=== PATIENT | male | born 1995 | race Caucasian/White ===

== ENCOUNTER 2022-09-20 18:43 | Inpatient (IN) ==
--- NOTE | 2022-09-20 19:00 | Emergency Department Note ---
Impression & Plan Alcohol intoxication, Depression with suicidal ideation ED Provider Note NAME: BARBARA VANG AGE: 27 SEX: M : 1995 ARRIVES VIA: [employer] INFORMANT: Patient, the police ED PROVIDER(S): Aleks Gay DO CHIEF COMPLAINT: Mental health evaluation HPI: The patient is a 27-year-old male who presented to the emergency department with police for mental health evaluation. The patient presented with police and there is a 302 petition. The patient's called the police because she was concerned for his safety. Apparently the patient has been having suicidal ideation with thoughts of taking pills and overdosing. He also states that he was going to "drink myself to ". The patient has been seen in our facility for similar complaints. He had no reported vomiting or GI bleeding. The patient came with the police without being belligerent or combative. ROS: See above HPI for pertinent positives & negatives. A total of 10 systems reviewed and were otherwise negative. PAST MEDICAL HISTORY: See Below PAST SURGICAL HISTORY: See Below FAMILY HISTORY: See Below SOCIAL HISTORY: See Below HOME MEDICATIONS: See Below ALLERGIES: See Below VITALS: See Below PHYSICAL EXAMINATION: GENERAL: The patient is awake and answering questions appropriately. He appears somewhat disheveled. EYES: The conjunctivae are clear. The pupils are round and reactive. EARS, NOSE, MOUTH AND THROAT: The nose is without any evidence of any deformity. NECK: The neck is nontender and supple. RESPIRATORY: Normal respiratory effort is noted there is no evidence of wheezing rhonchi or rales CARDIOVASCULAR: Regular rate and rhythm noted there no murmurs rubs or gallops normal S1 normal S2. GASTROINTESTINAL: The abdomen is soft. Abdomen is nontender. MUSCULOSKELETAL/EXTREMITIES: There is no evidence of gross deformity full range of motion is noted in the hips and shoulders. SKIN: There is no obvious evidence of any rash. There are no petechiae, pallor or cyanosis noted. NEUROLOGIC: Patient is awake and oriented x3 strength is symmetric patellar reflexes are 2+ bilaterally PSYCH: The patient makes poor eye contact for the majority of the evaluation. The patient is still admitting to suicidal ideation with thoughts of taking pills. MEDICAL DECISION MAKING: The patient is a 27-year-old male who presented to the emergency department with police for mental health evaluation. The patient presented as a 302 evaluation. The patient did admit to suicidal ideation but he was very vague about a plan. The patient was unable to be medically cleared as he had a very high alcohol level and has a history of withdrawal seizures in the past. I discussed the patient's condition with the on-call [facility] hospitalist. They have agreed to evaluate the patient in the emergency department for further management and disposition. Triage Nursing notes reviewed. Prior medical records reviewed Vital Signs: reviewed and remarkable for tachycardia and hypertension. Differential diagnosis: Mood disorder, infection, hypoglycemia, electrolyte abnormalities, cardiac sour tracey, intracerebral event, toxicologic, trauma, neurologic, as well as other pathologies. ER treatment provided: See below Diagnostics interpreted by me: ECG: none Laboratory studies: As stated above and show below. Imaging studies: See below. Consultation(s): I discussed this case with Dr. Mullins who is on-call for the [facility]ist group. Past Med/Surg History Medical History Alcohol dependence Alcohol intoxication Pneumonia Transaminitis Surgical History No pertinent past surgical history Family History Denies family history of Deep vein thrombosis Pulmonary embolism Social History Smoking Status: Current every day smoker Tobacco Type: E-cigarettes / Vaping Preferred Language: Urdu Feels Safe at Home: Yes Allergies Allergies Allergy/AdvReac Type Severity Reaction Status Date / Time cephalexin Allergy Severe Hives Verified 08/29/22 07:31 sulfamethoxazole Allergy Severe Hives Verified 08/29/22 07:31 [From Bactrim] trimethoprim [From Bactrim] Allergy Severe Hives Verified 08/29/22 07:31 Home Meds Home Medications Medication Instructions Recorded Confirmed No Known Home Medications 05/17/22 05/17/22 buspirone 10 mg PO 08/29/22 Results & Data (ED) Vital Signs Vital Signs - 24 hr 09/20/22 18:54 Temperature 36.9 C Temperature Source Oral Pulse Rate 113 H Respiratory Rate 18 Blood Pressure 163/111 H Blood Pressure Mean 128 Pulse Oximetry 99 Oxygen Delivery Method Room Air Sepsis Recent Fever Within 48 Hours No Sepsis New/Unexplained Change in Mental Status N/A Sepsis Action Taken by Nursing No Action Required Home Medications Current Medication List: was personally reviewed by me Laboratory Data Attestation: I reviewed the patient's lab results. 09/20/22 18:55 09/20/22 18:55 Lab Results 09/20/22 09/20/22 09/20/22 Range/Units 18:45 18:55 18:55 WBC 3.63 L (4.8-10.8) K/ul RBC 5.13 (4.70-6.10) M/uL Hgb 16.3 (14.0-18.0) g/dl Hct 45.9 (42.0-52.0) % MCV 89.5 (80.0-100.0) fL MCH 31.8 (25.0-34.0) pg MCHC 35.5 (32.0-36.0) g/dL RDW Std Deviation 43.5 (36.4-46.3) fL RDW Coeff of Nidia 13.2 (11.5-14.5) % Plt Count 287 (130-400) K/uL MPV 8.2 L (9.4-12.4) fL Neutrophils % (Manual) 31 % Lymphocytes % (Manual) 36 % Monocytes % (Manual) 10 % Eosinophils % (Manual) 2 % Neutrophils # (Manual) 1.13 L (1.40-6.50) K/uL Total Absolute Neuts 1.13 L (1.4-6.5) K/uL Lymphocytes # (Manual) 1.31 (1.2-3.4) K/uL Total Abs Lymphocytes 2.11 (1.2-3.4) K/uL Monocytes # (Manual) 0.36 (0.11-0.59) K/uL Eosinophils # (Manual) 0.07 (0-0.50) K/uL Large Granular Lymphs 22 % # Lrg Granular Lymphs 0.80 K/uL Sodium 141 (136-145) mmol/L Potassium 3.4 L (3.5-5.1) mmol/L Chloride 103 (98-107) mmol/L Carbon Dioxide 23 (21-32) mmol/L Anion Gap 15 H (3-11) BUN 9 (6-23) mg/dl Creatinine 0.87 (0.6-1.4) mg/dl Est Cr Clr Drug Dosing 109.1 ml/min Est GFR ( Amer) 137.1 ml/min Est GFR (Non-Af Amer) 118.3 ml/min BUN/Creatinine Ratio 10.3 (10-20) Glucose 136 H (70-99(Fasting)) mg/dl Calcium 8.9 (8.6-10.3) mg/dl Total Bilirubin 0.9 (0.2-1.0) mg/dl AST 82 H (13-39) U/L ALT 47 (7-52) U/L Alkaline Phosphatase 72 (34-104) U/L Total Protein 8.4 H (6.0-8.3) gm/dl Albumin 4.8 (3.4-5.0) gm/dl Globulin 3.6 (2.5-4.0) gm/dl Albumin/Globulin Ratio 1.3 (0.9-2) TSH (0.300-4.500) uIu/ml Salicylates (3.0-30) mg/dl Acetaminophen (10-30) ug/ml Ethyl Alcohol mg/dL (<10.0) mg/dl SARS-CoV-2, RNA, NAAT NEGATIVE (NEGATIVE) 09/20/22 09/20/22 09/20/22 Range/Units 18:55 18:55 18:55 WBC (4.8-10.8) K/ul RBC (4.70-6.10) M/uL Hgb (14.0-18.0) g/dl Hct (42.0-52.0) % MCV (80.0-100.0) fL MCH (25.0-34.0) pg MCHC (32.0-36.0) g/dL RDW Std Deviation (36.4-46.3) fL RDW Coeff of Nidia (11.5-14.5) % Plt Count (130-400) K/uL MPV (9.4-12.4) fL Neutrophils % (Manual) % Lymphocytes % (Manual) % Monocytes % (Manual) % Eosinophils % (Manual) % Neutrophils # (Manual) (1.40-6.50) K/uL Total Absolute Neuts (1.4-6.5) K/uL Lymphocytes # (Manual) (1.2-3.4) K/uL Total Abs Lymphocytes (1.2-3.4) K/uL Monocytes # (Manual) (0.11-0.59) K/uL Eosinophils # (Manual) (0-0.50) K/uL Large Granular Lymphs % # Lrg Granular Lymphs K/uL Sodium (136-145) mmol/L Potassium (3.5-5.1) mmol/L Chloride (98-107) mmol/L Carbon Dioxide (21-32) mmol/L Anion Gap (3-11) BUN (6-23) mg/dl Creatinine (0.6-1.4) mg/dl Est Cr Clr Drug Dosing ml/min Est GFR ( Amer) ml/min Est GFR (Non-Af Amer) ml/min BUN/Creatinine Ratio (10-20) Glucose (70-99(Fasting)) mg/dl Calcium (8.6-10.3) mg/dl Total Bilirubin (0.2-1.0) mg/dl AST (13-39) U/L ALT (7-52) U/L Alkaline Phosphatase (34-104) U/L Total Protein (6.0-8.3) gm/dl Albumin (3.4-5.0) gm/dl Globulin (2.5-4.0) gm/dl Albumin/Globulin Ratio (0.9-2) TSH 0.377 (0.300-4.500) uIu/ml Salicylates < 3.0 L (3.0-30) mg/dl Acetaminophen < 3 L (10-30) ug/ml Ethyl Alcohol mg/dL 522.9 H (<10.0) mg/dl SARS-CoV-2, RNA, NAAT (NEGATIVE) Discharge Plan Visit Data Chief Complaint: Mental Health Evaluation Stated Complaint: [facility] ED Provider: Aleks Gay Discharge Problem: Alcohol intoxication, Depression with suicidal ideation Patient Disposition: Being Evaluated by Hospitalist Forms Stand Alone Forms: My [facility], Suicide Prevention Resources Prescriptions Prescriptions: No Action No Known Home Medications buspirone 10 mg tablet 10 mg PO Referrals Referrals: PCP,NO [Primary Care Provider] -
[2022-09-20 19:52] LABS: Hematocrit (blood only) 45.9 % (42.0-52.0); Hemoglobin 16.3 g/dl (14.0-18.0); Mean Corpuscular Hemoglobin 31.8 pg (25.0-34.0); Mean Corpuscular Hgb Conc 35.5 g/dL (32.0-36.0); Mean Corpuscular Volume 89.5 fL (80.0-100.0); Mean Platelet Volume 8.2 fL (9.4-12.4); Platelet Count 287 K/uL (130-400); RDW Coefficient of Variation 13.2 % (11.5-14.5); RDW Standard Deviation 43.5 fL (36.4-46.3); Red Blood Count 5.13 M/uL (4.70-6.10); White Blood Count 3.63 K/ul (4.8-10.8)
[2022-09-20 19:54] LABS: Albumin Globulin Ratio 1.3 (0.9-2); Albumin Level 4.8 gm/dl (3.4-5.0); BUN Creatinine Ratio 10.3 (10-20); Bilirubin,Total 0.9 mg/dl (0.2-1.0); Calcium 8.9 mg/dl (8.6-10.3); Creatinine Clr Calc Pharmacy 109.1 ml/min; Est GFR (African American) 137.1 ml/min; Est GFR (Non-African American) 118.3 ml/min; Globulin 3.6 gm/dl (2.5-4.0); Potassium 3.4 mmol/L (3.5-5.1); Total Protein 8.4 gm/dl (6.0-8.3)
[2022-09-20 20:20] LABS: ALC (manual) 2.11 K/uL (1.2-3.4); ANC (manual) 1.13 K/uL (1.4-6.5); Eosinophils # (manual) 0.07 K/uL (0-0.50); Eosinophils % (manual) 2 %; Large Granular Lymph % (manual) 22 %; Lymphocytes # (manual) 1.31 K/uL (1.2-3.4); Lymphocytes % (manual) 36 %; Monocytes # (manual) 0.36 K/uL (0.11-0.59); Monocytes % (manual) 10 %; Neutrophils # (manual) 1.13 K/uL (1.40-6.50); Neutrophils % (manual) 31 %
[2022-09-20 20:39] LABS: Acetaminophen < 3 ug/ml (10-30); Salicylate < 3.0 mg/dl (3.0-30)
--- NOTE | 2022-09-20 22:29 | History & Physical Report ---
Date of Service September 20, 2022 Assessment & Plan (1) Suicidal ideation: Plan: Alcohol abuse Reports 1 seizure when trying to reduce his alcohol intake about a week ago, is on propranolol. Denies other antiseizure medicine Reports an interest in going to rehab. Reports that his addiction has caused him to complete suicide, see below Neutropenic, hemoglobin 16.3 Potassium 3.4, repleted BSG 136 Salicylate negative, acetaminophen negative, ethyl alcohol 5-2.9 on admission. Admit on CIWA, Librium protocol due to history of seizure Seizure precautions Thiamine, folic acid ordered. Suicidal ideation Patient endorses passive SI with potential plan in using medications or alcohol to overdose Reports that he still has thoughts of suicide, and that his addiction drives him to think of this Suicide precautions at this time Safe tray Psych liaison consulted - 302. Pt may not leave ama. Hypokalemia Repleted, trend Denies other chronic medical problems DVT prophylaxis: Low risk, ambulate Diet: Safe tray Disposition: Medical telemetry for acute withdrawal with history of seizures, and electrolyte abnormality CODE STATUS: Full code (2) Alcohol intoxication: (3) Alcohol dependence: History of Present Illness Primary Care Provider: NO PCP José Luis is a 27-year-old male with a past medical history of alcohol abuse, alcohol withdrawal seizures, and who reportedly had suicidal ideation at home with thoughts of taking pills and overdosing and drinking himself to before arriving in the ER. He is found to have an alcohol level greater than 500. He was recommended for medical admission due to history of withdrawal, history of seizures, and SI. José Luis is seen in a pod. He reports that he has had a history of a seizure when he tried to stop drinking alcohol last week, reports he is on propranolol but no other antiseizure medicine. He drinks about 1/5 of liquor per day, last drink was evening of admission he is not sure what time. He endorses passive SI, and reports that it is his addiction that makes him think about suicide and want to be . Has thought about drinking himself to or taking medications as a means, has not stockpiled or other attempts. Reports he is interested in rehab. Has never been on Librium but is okay starting this. Denies fever, chills. Feels shaky and a little sweaty. Medical History: Reviewed Medications: Reviewed Surgical History: Reviewed Family history: Reviewed Allergies: Reviewed Social History: ETOH as noted. Denies rec drug use Code Status: FUll Allergies Allergy/AdvReac Type Severity Reaction Status Date / Time cephalexin Allergy Severe Hives Verified 08/29/22 07:31 sulfamethoxazole Allergy Severe Hives Verified 08/29/22 07:31 [From Bactrim] trimethoprim [From Bactrim] Allergy Severe Hives Verified 08/29/22 07:31 Home Medications Medication Instructions Recorded Confirmed Type No Known Home Medications 05/17/22 05/17/22 History buspirone 10 mg PO 08/29/22 History Past Med/Surg History Medical History (Updated 09/20/22 @ 22:38 by Sanket Woo MD) Alcohol dependence Alcohol intoxication Pneumonia Transaminitis Surgical History No pertinent past surgical history Family History Denies family history of Deep vein thrombosis Pulmonary embolism Social History Smoking Status: Current every day smoker Tobacco Type: E-cigarettes / Vaping Preferred Language: Swedish Feels Safe at Home: Yes Review of Systems Review of Systems: All systems reviewed & are unremarkable except as noted in HPI & below Physical Exam Physical Exam: General: A&O to name, year, and place. NAD. Cooperative. HEENT: Atraumatic, normocephalic. Pulm: CTAB A&P. -wheezes, -rales, -rhonchi. Symmetrical chest rise. No increased work of breathing. No respiratory distress. Cardiac: tahcycardic, -mrg. Radial pulses intact and symmetrical. Abdominal: Nontender, nondistended, soft. BS present. Ext: warm, slightly moist. Mild resting tremor. Sensation/strength grossly intact Results & Data Results & Data Vital Signs (Past 12 Hours) Vital Signs Temp Pulse Resp BP Pulse Ox O2 Del Method 09/20/22 18:54 36.9 C 113 H 18 163/111 H 99 Room Air PG Care Time/CCT Total # of Minutes Spent Total Time Spent with Patient: Total time spent is greater than 50% in coordination of care (as documented) at patient's floor/unit and/or counseling patient: Coding Level of Care Code 92027 INT INP/OBS CARE MIN Diagnoses Suicidal ideation R45.851 Alcohol intoxication F10.929 Alcohol dependence F10.20
[2022-09-20] MEDS ORDERED: Ativan IV Alcohol Withdrawal--Active Protocol IV PRN (22:40)
[2022-09-20] MEDS ORDERED: LORazepam 2 MG/1 ML VIAL IV PRN ×3 (22:40→22:42)
[2022-09-20] MEDS ORDERED: chlordiazePOXIDE ALCOHOL WITHDRAWL 50MG PO STA (22:40)
[2022-09-20] MEDS ORDERED: CEROVITE ADV FORMULA TAB PO STA (22:52)
[2022-09-20] MEDS ORDERED: THIAMINE HCL 100 MG, FOLIC ACID 1 MG in SODIUM CHLORIDE 0.9% 1000ML 1,000 ML IV STA (22:52)
[2022-09-20] MEDS ORDERED: chlordiazePOXIDE HCl 25 MG CAP PO STA (22:53)
[2022-09-21] MEDS: LORazepam 2 MG/1 ML VIAL IV PRN ×3 (01:09→19:22)
[2022-09-21 02:43] LABS: Appearance Urine Clear (Clear); Bacteria Urine Automated Negative (Negative); Bilirubin Urine Negative (Negative); Blood Urine Negative (Negative); Cast Urine Automated 0 /lpf (0-5); Color Urine Yellow; Epithelial Cell Urine Auto 0-5 /lpf (0-5); Glucose Urine UA Negative (Negative); Ketones Urine 1+ (Negative); Leukocyte Esterase Urine Negative (Negative); Nitrite Urine Negative (Negative); Protein Urine Trace (Negative); RBC Urine Automated 0-4 /hpf (0-4); Specific Gravity Urine 1.018 (1.000-1.030); Urobilinogen Urine Negative (Negative)
[2022-09-21 03:01] LABS: Amphetamines+Metham, Urine Neg (Neg); Barbiturates, Urine Neg (Neg); Benzodiazepine, Urine Neg (Neg); Cocaine, Urine Neg (Neg); MDMA (Ecstacy), Urine Neg (Neg); Methadone, Urine Neg (Neg); Opiate, Urine Neg (Neg); Phencyclidine, Urine Neg (Neg)
[2022-09-21] MEDS: chlordiazePOXIDE HCl 25 MG CAP PO SCH ×4 (05:40→17:28)
[2022-09-21] MEDS: THIAMINE HCL 100 MG TAB PO SCH (07:58)
[2022-09-21 08:26] LABS: Basophils # (auto) 0.04 K/uL (0-0.2); Basophils % (auto) 0.9 %; Eosinophils # (auto) 0.06 K/uL (0-0.50); Eosinophils % (auto) 1.4 %; Hematocrit (blood only) 41.8 % (42.0-52.0); Hemoglobin 14.7 g/dl (14.0-18.0); Immature Granulocytes # (auto) 0.01 K/uL (0.01-0.20); Immature Granulocytes % (auto) 0.2 %; Lymphocytes # (auto) 2.03 K/uL (1.2-3.4); Lymphocytes % (auto) 47.2 %; Mean Corpuscular Hemoglobin 32.3 pg (25.0-34.0); Mean Corpuscular Hgb Conc 35.2 g/dL (32.0-36.0); Mean Corpuscular Volume 91.9 fL (80.0-100.0); Mean Platelet Volume 8.2 fL (9.4-12.4); Monocytes # (auto) 0.39 K/uL (0.11-0.59); Monocytes % (auto) 9.1 %; Neutrophils # (auto) 1.77 K/uL (1.40-6.50); Neutrophils % (auto) 41.2 %; Platelet Count 235 K/uL (130-400); RDW Coefficient of Variation 13.2 % (11.5-14.5); RDW Standard Deviation 44.8 fL (36.4-46.3); Red Blood Count 4.55 M/uL (4.70-6.10)
[2022-09-21 08:47] LABS: BUN Creatinine Ratio 9.8 (10-20); Calcium 8.7 mg/dl (8.6-10.3); Creatinine Clr Calc Pharmacy 110.6 ml/min; Est GFR (African American) 140.5 ml/min; Est GFR (Non-African American) 121.2 ml/min; Potassium 3.5 mmol/L (3.5-5.1)
[2022-09-21] MEDS: NICOTINE 21 MG/24 HR TDSY TD SCH (11:58)
[2022-09-21 13:02] LABS: Base Excess VBG 3.7 mEq/L; HCO3 VBG 29 mmol/L; Oxygen Saturation VBG 88.6 %; PCO2 VBG 43 mmHg (38-50); PO2 VBG 55 mmHg; pH VBG 7.43 (7.36-7.41)
[2022-09-21 13:27] LABS: BUN Creatinine Ratio 9.6 (10-20); Calcium 9.1 mg/dl (8.6-10.3); Creatinine Clr Calc Pharmacy 109.3 ml/min; Est GFR (African American) 139.8 ml/min; Est GFR (Non-African American) 120.6 ml/min; Potassium 3.8 mmol/L (3.5-5.1)
--- NOTE | 2022-09-21 16:29 | Psychiatric Consultation ---
Date of Consultation September 21, 2022 Impression / Recommendations Impression 27 y/o man with severe alcohol dependence and possibly PTSD (for which he certainly has a history of childhood traumatic events) who presented to the ED profoundly intoxicated and speaking of suicidal thoughts (but denied plans to the ED physician while reporting them to the hospitalist). At the present time he denies suicidal thoughts but does endorse anxiety. He may well have a depressive illness or PTSD, but in the context of his severe and ongoing alcohol use that can't be determined with any confidence at this time. Fortunately he is agreeing to referral to an inpatient [facility] program ("rehab") once he's sufficiently medically stable. His alcohol withdrawal is currently well- controlled with no evidence of severe or complicated symptoms, indicating the chlordiazepoxide taper as ordered is likely appropriate. (1) Alcohol use disorder, severe, dependence: (2) Alcohol withdrawal syndrome without complication: Plan There is a 302 petitioning statement on the chart. The patient should remain on safety precautions with 1-on-1 pending medical clearance. The patient is not psychiatrically cleared to leave the hospital without additional safety or a ftercare planning; this patient should not be allowed to leave [facility] without notification to our service as a 302 warrant may be appropriate. He actually currently voices that he's "willing to do whatever it takes" to get sober and to feel less unhappy and anxious. However, notes from previous encounters reflect substantial ambivalence about treatment It's not clear that pt currently has mood or anxiety disorder symptoms that would warrant psychiatric admission, but it's unquestionable that he has a severe alcohol use disorder that needs treatment and is currently at risk of withdrawal. He (and his ) is already working on a referral to [facility]. That facility does offer medical management of withdrawal ("detox"), but it's likely that once pt is sufficiently medically stable for transport over that distance that his withdrawal protocol would be complete. I do not recommend attempting to start medication treatment for depression or anxiety at this time given the need to focus on medical management of withdrawal symptoms coupled with the diagnostic uncertainties due to his heavy alcohol use. Psych History Identifying Data BARBARA VANG is a 27-year-old M with a history of alcohol use disorder, admitted on 09/20/2022 for alcohol intoxication and suicidal statements. Consult is by the hospitalist service for "SI w/ plan.". Chief Complaint "I really shouldn't drink that much". History of Present Illness As part of a thorough review of the available medical records, I have read and confirmed the following note by the ED physician: "The patient is a 27-year-old male who presented to the emergency department with police for mental health evaluation. The patient presented as a 302 evaluation. The patient did admit to suicidal ideation but he was very vague about a plan. The patient was unable to be medically cleared as he had a very high alcohol level and has a history of withdrawal seizures in the past." the following note by the hospitalist: "Barbara is a 27-year-old male with a past medical history of alcohol abuse, alcohol withdrawal seizures, and who reportedly had suicidal ideation at home with thoughts of taking pills and overdosing and drinking himself to before arriving in the ER. He is found to have an alcohol level greater than 500. He was recommended for medical admission due to history of withdrawal, history of seizures, and SI. Barbara is seen in a pod. He reports that he has had a history of a seizure when he tried to stop drinking alcohol last week, reports he is on propranolol but no other antiseizure medicine. He drinks about 1/5 of liquor per day, last drink was evening of admission he is not sure what time. He endorses passive SI, and reports that it is his addiction that makes him th ink about suicide and want to be . Has thought about drinking himself to or taking medications as a means, has not stockpiled or other attempts. Reports he is interested in rehab. Has never been on Librium but is okay starting this. Denies fever, chills. Feels shaky and a little sweaty." the following note by the ED psychiatric director of casework department: "Barbara was brought to ED by [employer] who stated Barbara has been excessively drinking alcohol and making threats to end his life. in lobby and willing to complete petitioning statement for 302. Accompanied Dr. Gay to meet with patient and complete brief mental health assessment. Barbara stated he drinks alcohol "a lot." He stated he has been on a duran for a few days and last drank at approx. 8am. Barbara stated he is having thoughts of suicide and had planned to OD on pills. Barbara stated he drank a gallon of vodka. Met with /Jackie who stated Barbara struggle with severe alcohol dependance. She stated Barbara is prescribed medication for sleep and tremors. stated Barbara is threatening to OD on Seroquel or hurt self in anyway. stated firearms have been removed from home since his last ED visit. stated he is threatening to kill/hurt their animals. He has said "I want to kill you" but never made a specific threat. stated Barbara is not completing his ADLs. He is not showering or eating. stated he only drinks alcohol all day. completed a box A petitioning statement which reads: "Inability to care for himself. No showers. Not eating, etc. Excessive drinking, inability to stop as a form of SH (self help). threats against himself (drinking himself to , overdosing, ect.)." stated she has been in contact with [facility] and waiting for a bed to open up." and the following note by the psychiatric liaison nurse: "Spoke with patient's to get collateral, per Jackie patient has been having heavy issues with alcohol the last two years, he went to a detox facility in June and left AMA after 3 days and was then sober for a week before relapse, patient has a long trauma history and most of his family has walked out on him, he was raised by his grandfather who committed suicide when patient was 10 and patient found him, and then last year one of patient's best friends committed suicide so per his "he just delicia romanticizes it and is conditioned to it so makes casual statements chronically when he is drinking", states that she has already started the process with [facility] to get patient to [facility] once he is medically clear - will pass on to case management to follow up on Friday with [facility]. She states that all guns in the house have been secured for months and that she has no other safety concerns regarding the patient. Patient seen for initial consult, alert and oriented x 4 - groggy and asking for a nicotine patch, currently denying SI/HI, denies h allucinations/delusions, patient states he has no recollection of making suicidal statements, agreed to sign JOCELIN for his , patient is currently unemployed and lives at home with his and infant son, drinks 1/2 gallon of liquor daily - was last sober 3 months ago but has a long standing history with alcohol abuse and can't cite any particular stressors that caused him to start drinking again - denies other drug use, patient states he is without family support but is requesting his be called to ask for her to visit him today, 302 petitioning statement on chart but patient will not meet criteria for 302 based on making statements under the influence, he is agreeable to inpatient drug and alcohol rehab once medically clear as he "wants to get this under control", let patient know case management will be by to talk about rehab options once he is stable." Review of the medical record reveals no previous or outside psychiatric records. Review of pertinent labs reveals they are noncontributory except for mild hypokalemia which has subsequently resolved and AST of 87 U/L j. Urine toxicology screen was negative for all tested substrates. BAL was 522.9 mg/dL at 1855 yesterday. I saw pt in the presence of his (and their 7 month-old son). He presents as pleasant and cooperative and does not exhibit current signs of withdrawal (such as tremor, diaphoresis, piloerection) but notes he "just got some Ativan". He says "I always say stuff like that when I drink too much", referring to suicidal statements. He emphasizes repeatedly that he has no suicidal thoughts at this time nor does he at home unless he's been drinking. His tells me that when pt is sober he functions well but that "it all comes out when he drinks". Pt drinks about 1.75 L of distilled spirits every day and started drinking in his early teens. He has had withdrawal seizures in the past but denies any history of sensory disturbances. He has voiced ambivalence about substance use disorder (ANNIA) treatment (often referred to as "rehab") during previous evaluations in the ED or hospital here but tells me he's had 3 ANNIA admissions in the past. Two, in [place], were "useless and just after insurance" while one in [place] "was actually pretty helpful". Pt's withdrawal severity is being monitored using AWSS and he's on a taper of chlordiazepoxide (currently 50 mg TID) with lorazepam for breakthrough symptoms depending on objective severity measures. Past Psychiatric History Previous Psych History: May have PTSD, though it's unclear whether he's ever been diagnosed Previous Psych Admissions: denies History of Previous Suicide Attempt: No Past Medication Trials: propranolol for anxiety (and tremor) - stopped due to excessive sedation Allergies Allergy/AdvReac Type Severity Reaction Status Date / Time cephalexin Allergy Severe Hives Verified 08/29/22 07:31 sulfamethoxazole Allergy Severe Hives Verified 08/29/22 07:31 [From Bactrim] trimethoprim [From Bactrim] Allergy Severe Hives Verified 08/29/22 07:31 Home Medications Medication Instructions Recorded Confirmed Type No Known Home Medications 05/17/22 05/17/22 History buspirone 10 mg PO 08/29/22 History Patient History Medical History Alcohol dependence Alcohol intoxication Pneumonia Transaminitis Surgical History No pertinent past surgical history Family History Denies family history of Deep vein thrombosis Pulmonary embolism Social History Smoking Status: Current every day smoker Tobacco Type: E-cigarettes / Vaping Second Hand Exposure: No; Do You Dip or Chew Tobacco: No; Tobacco Cessation Education Requested by Patient: No Hx Alcohol Use: Yes Alcohol type: hard liquor Hx Substance Use: No Preferred Language: Omani Communication Ability: Effective Package Liner Required: No Beliefs That Will Affect Care: None Current Living Situation: Spouse Other Information That Helps Us Care for You: No Feels Safe at Home: Yes Safety Concerns: Feels Safe At This Time Assistive Devices: None Physical Exam Psychiatric: Orientation: alert, oriented to person, oriented to place, oriented to time and cooperative Apperance: appropriately dressed (in hospital garments), appropriately groomed and appeared stated age Eye Contact: + fair eye contact Motor Behavior: no abnormal motor movements; n tremor Speech: normal rate/rhythm/volume of speech Affect: + constricted affect Mood: + anxious mood and + dysphoric mood Thought Process: linear/logical thought process Thought Content: + self deprecation; no delusions, no hopelessness and no worthlessness Suicidal Thoughts: denies suicidal thoughts, denies suicidal plan and denies suicidal intent Homicidal Thoughts: denies homicidal thoughts Hallucinations: no auditory hallucinations, no visual hallucinations and no tactile hallucinations Cognition: recent memory grossly intact, remote memory grossly intact, attention grossly intact and language grossly intact Estimated Intelligence: average estimated intelligence Insight: + fair insight Judgment: + fair judgement Vital Signs (Past 24 Hours): Last Vital Signs Temp 36.9 C 09/21/22 15:02 Pulse 85 09/21/22 15:02 Resp 16 09/21/22 15:02 BP 135/81 09/21/22 15:02 Pulse Ox 99 09/21/22 15:02 O2 Del Method Room Air 09/21/22 15:02 Review of Systems Psychiatric: + anhedonia, + anxiety and + substance abuse; no hopelessness, no suicidal ideation and no hallucinations Results & Data (PSY) Medications Administered Chlordiazepoxide HCl (Chlordiazepoxide Hcl 25 Mg Cap) 50 mg PO Q6H [facility] Stop: 09/21/22 18:01 Last Admin: 09/21/22 11:33 Dose: 50 mg Documented By: Admin: 09/21/22 05:40 Dose: 50 mg Documented By: AMM Lorazepam (Lorazepam 2 Mg/1 Ml Vial) 1 mg IV UD PRN; Protocol PRN Reason: EtOH Withdrawal AWSS Score 6,7 Stop: 10/20/22 22:39 Last Admin: 09/21/22 15:29 Dose: 1 mg Documented By: Admin: 09/21/22 01:09 Dose: 1 mg Documented By: AMM Nicotine (Nicotine 21 Mg/24 Hr Tdsy) 21 mg TD QAM [facility] Stop: 10/21/22 10:59 Last Admin: 09/21/22 11:58 Dose: 21 mg Documented By: GPF Thiamine HCl (Thiamine Hcl 100 Mg Tab) 100 mg PO QAM [facility] Stop: 10/21/22 08:59 Last Admin: 09/21/22 07:58 Dose: 100 mg Documented By: GPLuisa Coding Level of Care Code 60247 IN/OBS CONSULT LVL 4,60M Diagnoses Alcohol use disorder, severe, dependence F10.20 Alcohol withdrawal syndrome without complication F10.930 Time Spent (min) 64 Comment time [id number] with pt
--- NOTE | 2022-09-21 22:46 | Hospitalist Progress Note ---
Date of Service September 21, 2022 Assessment & Plan (1) Suicidal ideation: Plan: Alcohol abuse Reports 1 seizure when trying to reduce his alcohol intake about a week ago, is on propranolol. Denies other antiseizure medicine Reports an interest in going to rehab. Reports that his addiction has caused him to complete suicide, see below Neutropenic, hemoglobin 16.3 Potassium 3.4, repleted BSG 136 Salicylate negative, acetaminophen negative, ethyl alcohol 5-2.9 on admission. Admit on CIWA, Librium protocol due to history of seizure Seizure precautions Thiamine, folic acid ordered. Plan to monitor 48-72 hours for symptoms of withdrawal. Patient will benefit from inpatient rehab. Psych states he does not meet criteria for a 302. Patient with metabolic acidosis with anion gap, likley secondary to alcohol use. will monitor. Suicidal ideation Patient endorses passive SI with potential plan in using medications or alcohol to overdose Reports that he still has thoughts of suicide, and that his addiction drives him to think of this Suicide precautions at this time Safe tray Psych liaison consulted Hypokalemia Repleted, trend Denies other chronic medical problems DVT prophylaxis: Low risk, ambulate Diet: Safe tray Disposition: Medical telemetry for acute withdrawal with history of seizures, and electrolyte abnormality CODE STATUS: Full code (2) Alcohol intoxication: (3) Alcohol dependence: Admission and Anticipated Discharge Date Admission Date: September 20, 2022 Subjective 27 yo male reports no new symtpoms. He reports he last drink was friday afternoon. He reports he currently has no symptoms of withdrawal such as tremors, nausea, vomiting, hallucinations, anxeity. Review of Systems Review of Systems: All systems reviewed & are unremarkable except as noted in HPI & below Physical Exam Physical Exam: General: A&O to name, year, and place. NAD. Cooperative. HEENT: Atraumatic, normocephalic. Pulm: CTAB A&P. -wheezes, -rales, -rhonchi. Symmetrical chest rise. No increased work of breathing. No respiratory distress. Cardiac: tahcycardic, -mrg. Radial pulses intact and symmetrical. Abdominal: Nontender, nondistended, soft. BS present. Ext: warm, slightly moist. Mild resting tremor. Sensation/strength grossly intact Results & Data Results & Data Vital Signs (Past 12 Hours) Vital Signs Temp Pulse Resp BP Pulse Ox O2 Del Method 09/21/22 19:20 Room Air 09/21/22 21:15 36.8 C 68 16 133/88 98 Room Air 09/21/22 19:17 37.1 C 82 18 144/89 H 99 Room Air 09/21/22 17:30 36.9 C 94 H 18 147/79 H 98 Room Air 09/21/22 15:02 36.9 C 85 16 135/81 99 Room Air 09/21/22 11:34 37.2 C 95 H 18 139/71 96 Room Air PG Care Time/CCT Total # of Minutes Spent Total Time Spent with Patient: Total time spent is greater than 50% in coordination of care (as documented) at patient's floor/unit and/or counseling patient: Coding Level of Care Code 04087 SUB INP/OBS CARE 2/35MIN Diagnoses Suicidal ideation R45.851 Alcohol intoxication F10.929 Alcohol dependence F10.20
[2022-09-22 06:29] LABS: Basophils # (auto) 0.02 K/uL (0-0.2); Basophils % (auto) 0.5 %; Eosinophils # (auto) 0.18 K/uL (0-0.50); Eosinophils % (auto) 4.9 %; Hematocrit (blood only) 40.7 % (42.0-52.0); Hemoglobin 14.3 g/dl (14.0-18.0); Immature Granulocytes # (auto) 0.01 K/uL (0.01-0.20); Immature Granulocytes % (auto) 0.3 %; Lymphocytes # (auto) 1.23 K/uL (1.2-3.4); Lymphocytes % (auto) 33.3 %; Mean Corpuscular Hemoglobin 32.2 pg (25.0-34.0); Mean Corpuscular Hgb Conc 35.1 g/dL (32.0-36.0); Mean Corpuscular Volume 91.7 fL (80.0-100.0); Mean Platelet Volume 8.5 fL (9.4-12.4); Monocytes # (auto) 0.65 K/uL (0.11-0.59); Monocytes % (auto) 17.6 %; Neutrophils % (auto) 43.4 %; Platelet Count 204 K/uL (130-400); RDW Coefficient of Variation 12.9 % (11.5-14.5); RDW Standard Deviation 44.1 fL (36.4-46.3); Red Blood Count 4.44 M/uL (4.70-6.10); White Blood Count 3.69 K/ul (4.8-10.8)
[2022-09-22 06:56] LABS: BUN Creatinine Ratio 12.2 (10-20); Calcium 9.5 mg/dl (8.6-10.3); Creatinine Clr Calc Pharmacy 115.2 ml/min; Est GFR (African American) 140.5 ml/min; Est GFR (Non-African American) 121.2 ml/min; Potassium 3.5 mmol/L (3.5-5.1)
[2022-09-22] MEDS: THIAMINE HCL 100 MG TAB PO SCH (08:47)
[2022-09-22] MEDS: NICOTINE 21 MG/24 HR TDSY TD SCH ×3 (08:47→16:31)
[2022-09-22] MEDS: chlordiazePOXIDE HCl 25 MG CAP PO SCH ×2 (11:25→17:09)
--- NOTE | 2022-09-22 12:20 | Hospitalist Progress Note ---
Date of Service September 22, 2022 Assessment & Plan (1) Suicidal ideation: Plan: Alcohol abuse Reports 1 seizure when trying to reduce his alcohol intake about a week ago, is on propranolol. Denies other antiseizure medicine Reports an interest in going to rehab. Reports that his addiction has caused him to complete suicide, see below Neutropenic, hemoglobin 16.3 Potassium 3.4, repleted BSG 136 Salicylate negative, acetaminophen negative, ethyl alcohol 5-2.9 on admission. Admit on CIWA, Librium protocol due to history of seizure Seizure precautions Thiamine, folic acid ordered. Plan to monitor 48-72 hours for symptoms of withdrawal. Patient will benefit from inpatient rehab. Psych states he does not meet criteria for a 302. Patient with metabolic acidosis with anion gap, likley secondary to alcohol use. Resolved. will continue to monitor. Suicidal ideation Patient endorses passive SI with potential plan in using medications or alcohol to overdose Reports that he still has thoughts of suicide, and that his addiction drives him to think of this Suicide precautions at this time Safe tray Psych liaison consulted Hypokalemia Repleted, trend Denies other chronic medical problems DVT prophylaxis: Low risk, ambulate Diet: Safe tray Disposition: Medical telemetry for acute withdrawal with history of seizures, and electrolyte abnormality CODE STATUS: Full code (2) Alcohol intoxication: (3) Alcohol dependence: Admission and Anticipated Discharge Date Admission Date: September 20, 2022 Subjective 27 yo male reports no new symptoms. The nurse in the room states he has been sweating. Patient does not want any benzos, will monitor. Review of Systems Review of Systems: All systems reviewed & are unremarkable except as noted in HPI & below Physical Exam 2 Physical Exam: General: A&O to name, year, and place. NAD. Cooperative. HEENT: Atraumatic, normocephalic. Pulm: CTAB A&P. -wheezes, -rales, -rhonchi.. Cardiac: RRR, -mrg. Radial pulses intact and symmetrical. Abdominal: Nontender, nondistended, soft. BS present. Ext: warm, slightly moist. Mild resting tremor. Sensation/strength grossly intact Results & Data Results & Data Vital Signs (Past 12 Hours) Vital Signs Temp Pulse Pulse Resp BP Pulse Ox O2 Del Method 09/22/22 11:28 36.6 C 67 16 134/87 97 Room Air 09/22/22 07:23 36.4 C L 80 16 136/85 99 Room Air 09/22/22 07:16 95 H 09/22/22 03:07 36.4 C L 69 16 136/79 99 Room Air PG Care Time/CCT Total # of Minutes Spent Total Time Spent with Patient: Total time spent is greater than 50% in coordination of care (as documented) at patient's floor/unit and/or counseling patient: Coding Level of Care Code 97621 SUB INP/OBS CARE 2/35MIN Diagnoses Suicidal ideation R45.851 Alcohol intoxication F10.929 Alcohol dependence F10.20
[2022-09-23] MEDS: chlordiazePOXIDE HCl 25 MG CAP PO SCH ×3 (01:54→17:11)
[2022-09-23 07:38] LABS: Basophils # (auto) 0.03 K/uL (0-0.2); Basophils % (auto) 0.5 %; Eosinophils # (auto) 0.37 K/uL (0-0.50); Eosinophils % (auto) 6.2 %; Hematocrit (blood only) 42.6 % (42.0-52.0); Hemoglobin 14.9 g/dl (14.0-18.0); Immature Granulocytes # (auto) 0.01 K/uL (0.01-0.20); Immature Granulocytes % (auto) 0.2 %; Lymphocytes % (auto) 30.3 %; Mean Corpuscular Hemoglobin 32.2 pg (25.0-34.0); Mean Platelet Volume 8.9 fL (9.4-12.4); Monocytes # (auto) 0.66 K/uL (0.11-0.59); Monocytes % (auto) 11.1 %; Neutrophils # (auto) 3.08 K/uL (1.40-6.50); Neutrophils % (auto) 51.7 %; Platelet Count 217 K/uL (130-400); RDW Coefficient of Variation 12.8 % (11.5-14.5); RDW Standard Deviation 43.2 fL (36.4-46.3); Red Blood Count 4.63 M/uL (4.70-6.10); White Blood Count 5.95 K/ul (4.8-10.8)
[2022-09-23 07:55] LABS: Calcium 9.6 mg/dl (8.6-10.3); Est GFR (African American) 145.7 ml/min; Est GFR (Non-African American) 125.7 ml/min; Potassium 3.5 mmol/L (3.5-5.1)
[2022-09-23] MEDS: THIAMINE HCL 100 MG TAB PO SCH (08:26)
[2022-09-23] MEDS: NICOTINE 21 MG/24 HR TDSY TD SCH (08:26)
--- NOTE | 2022-09-23 23:03 | Hospitalist Progress Note ---
Date of Service September 23, 2022 Assessment & Plan (1) Suicidal ideation: Plan: Alcohol abuse Reports 1 seizure when trying to reduce his alcohol intake about a week ago, is on propranolol. Denies other antiseizure medicine Reports an interest in going to rehab. Reports that his addiction has caused him to complete suicide, see below Neutropenic, hemoglobin 16.3 Potassium 3.4, repleted BSG 136 Salicylate negative, acetaminophen negative, ethyl alcohol 5-2.9 on admission. Admit on CIWA, Librium protocol due to history of seizure Seizure precautions Thiamine, folic acid ordered. Plan to monitor 48-72 hours for symptoms of withdrawal. Patient will benefit from inpatient rehab. Psych states he does not meet criteria for a 302. Patient with metabolic acidosis with anion gap, likley secondary to alcohol use. Resolved. will continue to monitor. _Plan to remvoe AWSS on 09/24 -Patient will be cleared for discharge tomorrow, but awaiting placement. Suicidal ideation Patient endorses passive SI with potential plan in using medications or alcohol to overdose Reports that he still has thoughts of suicide, and that his addiction drives him to think of this Suicide precautions at this time Safe tray Psych liaison consulted Hypokalemia Repleted, trend Denies other chronic medical problems DVT prophylaxis: Low risk, ambulate Diet: Safe tray Disposition: Medical telemetry for acute withdrawal with history of seizures, and electrolyte abnormality CODE STATUS: Full code (2) Alcohol intoxication: (3) Alcohol dependence: Admission and Anticipated Discharge Date Admission Date: September 20, 2022 Subjective 27 yo male reports no new symptoms. Patient reports no tremors Review of Systems Review of Systems: All systems reviewed & are unremarkable except as noted in HPI & below Physical Exam Physical Exam: General: A&O to name, year, and place. NAD. Cooperative. HEENT: Atraumatic, normocephalic. Pulm: CTAB A&P. -wheezes, -rales, -rhonchi.. Cardiac: RRR, -mrg. Radial pulses intact and symmetrical. Abdominal: Nontender, nondistended, soft. BS present. Ext: warm, slightly moist. Mild resting tremor. Sensation/strength grossly intact Results & Data Results & Data Vital Signs (Past 12 Hours) Vital Signs Temp Pulse Pulse Resp BP Pulse Ox O2 Del Method 09/23/22 22:42 36.6 C 85 16 137/87 98 Room Air 09/23/22 19:53 Room Air 09/23/22 19:21 36.3 C L 80 18 132/86 98 Room Air 09/23/22 17:28 76 09/23/22 15:53 36.8 C 85 20 144/89 H 98 Room Air 09/23/22 11:37 36.8 C 77 19 129/82 98 Room Air PG Care Time/CCT Total # of Minutes Spent Total Time Spent with Patient: Total time spent is greater than 50% in coordination of care (as documented) at patient's floor/unit and/or counseling patient: Coding Level of Care Code 55880 SUB INP/OBS CARE 2/35MIN Diagnoses Suicidal ideation R45.851 Alcohol intoxication F10.929 Alcohol dependence F10.20
[2022-09-24 07:23] LABS: Hematocrit (blood only) 42.1 % (42.0-52.0); Hemoglobin 15.1 g/dl (14.0-18.0); Mean Corpuscular Hemoglobin 32.4 pg (25.0-34.0); Mean Corpuscular Hgb Conc 35.9 g/dL (32.0-36.0); Mean Corpuscular Volume 90.3 fL (80.0-100.0); Platelet Count 228 K/uL (130-400); RDW Coefficient of Variation 12.8 % (11.5-14.5); RDW Standard Deviation 42.5 fL (36.4-46.3); Red Blood Count 4.66 M/uL (4.70-6.10); White Blood Count 6.69 K/ul (4.8-10.8)
[2022-09-24 07:37] LABS: Albumin Globulin Ratio 1.3 (0.9-2); Albumin Level 4.1 gm/dl (3.4-5.0); BUN Creatinine Ratio 11.5 (10-20); Bilirubin,Total 1.7 mg/dl (0.2-1.0); Calcium 9.8 mg/dl (8.6-10.3); Creatinine Clr Calc Pharmacy 108.6 ml/min; Est GFR (African American) 137.1 ml/min; Est GFR (Non-African American) 118.3 ml/min; Globulin 3.2 gm/dl (2.5-4.0); Potassium 3.3 mmol/L (3.5-5.1); Total Protein 7.3 gm/dl (6.0-8.3)
[2022-09-24] MEDS: NICOTINE 21 MG/24 HR TDSY TD SCH (10:06)
[2022-09-24] MEDS: THIAMINE HCL 100 MG TAB PO SCH (10:08)
--- NOTE | 2022-09-24 15:17 | Discharge Summary ---
Date of Service September 24, 2022 Admission HPI Per Admitting Provider José Luis is a 27-year-old male with a past medical history of alcohol abuse, alcohol withdrawal seizures, and who reportedly had suicidal ideation at home with thoughts of taking pills and overdosing and drinking himself to before arriving in the ER. He is found to have an alcohol level greater than 500. He was recommended for medical admission due to history of withdrawal, history of seizures, and SI. José Luis is seen in a pod. He reports that he has had a history of a seizure when he tried to stop drinking alcohol last week, reports he is on propranolol but no other antiseizure medicine. He drinks about 1/5 of liquor per day, last drink was evening of admission he is not sure what time. He endorses passive SI, and reports that it is his addiction that makes him think about suicide and want to be . Has thought about drinking himself to or taking medications as a means, has not stockpiled or other attempts. Reports he is interested in rehab. Has never been on Librium but is okay starting this. Denies fever, chills. Feels shaky and a little sweaty. Medical History: Reviewed Medications: Reviewed Surgical History: Reviewed Family history: Reviewed Allergies: Reviewed Social History: ETOH as noted. Denies rec drug use Code Status: FUll Principal Diagnosis suicidal ideation/ alcohol withdrawal Discharge Exam General: A&O to name, year, and place. NAD. Cooperative. HEENT: Atraumatic, normocephalic. Pulm: CTAB A&P. -wheezes, -rales, -rhonchi.. Cardiac: RRR, -mrg. Radial pulses intact and symmetrical. Abdominal: Nontender, nondistended, soft. BS present. Ext: warm, slightly moist. No tremorSensation/strength grossly intact Discharge Data Allergies Allergy/AdvReac Type Severity Reaction Status Date / Time cephalexin Allergy Severe Hives Verified 08/29/22 07:31 sulfamethoxazole Allergy Severe Hives Verified 08/29/22 07:31 [From Bactrim] trimethoprim [From Bactrim] Allergy Severe Hives Verified 08/29/22 07:31 Consultations 09/20/22 20:47 ED Decision to Admit Stat 09/21/22 06:53 Consult Psychiatry Routine Hospital Course (1) Suicidal ideation: Alcohol abuse Reports 1 seizure when trying to reduce his alcohol intake about a week ago, is on propranolol. Denies other antiseizure medicine Reports an interest in going to rehab. Reports that his addiction has caused him to complete suicide, see below Placed on CIWA scale Monitored for 72 hours for symptoms of withdrawal. Patient will benefit from inpatient rehab. Psych states he does not meet criteria for a 302. Patient with metabolic acidosis with anion gap, likley secondary to alcohol use. Resolved. Patient may have a bed at rehab facility on 09/25 but patient reports he would like to be discharged. Suicidal ideation Patient endorses passive SI with potential plan in using medications or alcohol to overdose Reports that he still has thoughts of suicide, and that his addiction drives him to think of this Suicide precautions at this time Safe tray Psych liaison consulted: patient did not meet criteria for involuntary inpatient psych. -psych recommended to hold depression medicine until followed up with PCP. Hypokalemia Repleted, trend Denies other chronic medical problems Patient interested in Following with Cristian PCP as an outpatient. (2) Alcohol intoxication: (3) Alcohol dependence: Total Time Total Time Spent Total Time Spent (In Minutes): 32 Discharge Plan Discharge Items Patient Disposition: Home - Self-Care Reason For Visit: ETOH WITHDRAWAL, SI Discharge Diagnosis: Alcohol withdrawal Activity: Resume your previous activity Non-emergency contact: Primary Care Provider Call non-emergency contact if: you have any medication questions Follow-up/Referrals: PCP,SAUMYA [Primary Care Provider] - Diet: Regular Addtl Attending Provider Instructions: Continue to abstain from alcohol. Followup with outpatient alcohol and rehab. Pending Studies at Discharge: No Stand-Alone Forms: [facility] [employer], Smoking Cessation Medications and DC Order Prescriptions: New thiamine HCl (vitamin B1) 100 mg Tablet 100 mg PO QAM Qty: 30 0RF nicotine [Nicoderm CQ] 21 mg/24 hr Patch 24 Hour 21 mg transdermal QAM Qty: 30 0RF Continued buspirone 10 mg tablet 10 mg PO Discharge Orders: Discharge Order (Routine); Ordered 09/24/22 Ordered By: Sebastian Anders/Other Patient Handouts: Alcohol Withdrawal: What to Expect, Suicide Warning Signs Admission Data Admit Date/Time: 09/20/22 22:45 Attending Provider: Sebastian Duran Admit Provider: Sanket Woo Primary Care Provider: PCP,NO Other Providers: Sanket Woo ; Edith Smith ; Lu Weiss ; Lucian Hill Other Interventions: Discharge Summary Assessment (RN) Last Done: 09/24/22 16:37 Coding Level of Care Code 22321 INP/OBS DISCH >30 MIN Diagnoses Suicidal ideation R45.851 Alcohol intoxication F10.929 Alcohol dependence F10.20
== END 2022-09-24 17:01 | disposition home or self-care (01) | DRG 897 ==
LOC: ED 18:43 → 2S 22:45 → SUATTDRO 22:45 → 2S 23:58
DX: E87.20 Acidosis, unspecified; E87.6 Hypokalemia; F32.A Depression, unspecified; F43.10 Post-traumatic stress disorder, unspecified; U07.0 Vaping-related disorder; Z88.2 Allergy status to sulfonamides; Z88.8 Allergy status to other drugs, medicaments and biological substances; F17.210 Nicotine dependence, cigarettes, uncomplicated; G40.89 Other seizures; R45.851 Suicidal ideations; F10.229 Alcohol dependence with intoxication, unspecified; F10.239 Alcohol dependence with withdrawal, unspecified

== ENCOUNTER 2023-01-05 20:11 | Inpatient (IN) ==
[2023-01-05 22:51] LABS: Bilirubin,Total 1.7 mg/dl (0.2-1.0); Calcium 9.5 mg/dl (8.6-10.3); Potassium 3.7 mmol/L (3.5-5.1)
[2023-01-05 22:52] LABS: Basophils # (auto) 0.05 K/uL (0.00-0.20); Basophils % (auto) 1.5 %; Eosinophils # (auto) 0.05 K/uL (0.00-0.50); Eosinophils % (auto) 1.5 %; Hematocrit (blood only) 51.4 % (42.0-52.0); Hemoglobin 17.6 g/dl (14.0-18.0); Immature Granulocytes # (auto) 0.01 K/uL (0.01-0.20); Immature Granulocytes % (auto) 0.3 %; Lymphocytes # (auto) 1.15 K/uL (1.20-3.40); Lymphocytes % (auto) 34.5 %; Mean Corpuscular Hemoglobin 31.7 pg (25.0-34.0); Mean Corpuscular Hgb Conc 34.2 g/dL (32.0-36.0); Mean Corpuscular Volume 92.4 fL (80.0-100.0); Mean Platelet Volume 8.3 fL (9.4-12.4); Monocytes # (auto) 0.36 K/uL (0.11-0.59); Monocytes % (auto) 10.8 %; Neutrophils # (auto) 1.71 K/uL (1.40-6.50); Neutrophils % (auto) 51.4 %; Platelet Count 169 K/uL (130-400); RDW Coefficient of Variation 13.8 % (11.5-14.5); RDW Standard Deviation 47.1 fL (36.4-46.3); Red Blood Count 5.56 M/uL (4.70-6.10); White Blood Count 3.33 K/ul (4.8-10.8)
[2023-01-05 22:57] LABS: Albumin Globulin Ratio 1.3 (0.9-2); BUN Creatinine Ratio 11.1 (10-20); Creatinine Clr Calc Pharmacy 105.2 ml/min; Est GFR (African American) 135.2 ml/min; Est GFR (Non-African American) 116.6 ml/min; Globulin 3.8 gm/dl (2.5-4.0); Total Protein 8.8 gm/dl (6.0-8.3)
[2023-01-05] MEDS ORDERED: FAMOTIDINE 20MG IV PUSH 20 MG/5 ML SYR IV STA (23:01)
[2023-01-05] MEDS ORDERED: PANTOprazole 40 MG in SYRINGE 0 ML IV ONE (23:01)
[2023-01-05] MEDS ORDERED: MULTI-VITAMIN INFUSION 10 ML, THIAMINE HCL 100 MG, FOLIC ACID 1 MG in SODIUM CHLORIDE 0... IV ONE (23:03)
[2023-01-05 23:18] LABS: Partial Thromboplastin Time 27.5 Seconds (21.0-31.0); Prothrombin Time 10.7 Seconds (9.0-12.0)
--- NOTE | 2023-01-05 23:25 | Emergency Department Note ---
History of Present Illness General Chief complaint: Shortness of Breath/Dyspnea Stated complaint: SHORTNESS OF BREATH, VOMITING SOME BLOOD Time Seen by Provider: 01/05/23 23:01 History of Present Illness This is a 27-year-old male presenting to the emergency department for evaluation of nausea, vomiting, and right-sided chest pain. The patient is an alcoholic, drinking about half a gallon or more of vodka on a daily basis. The patient did drink earlier today, and is concerned that he may be vomiting blood. He is having pain in the right upper quadrant/right lower chest wall. No fevers or chills. He feels like he is not able to breathe because of his discomfort. The patient is accompanied by his and young child. Patient does not have any falls or recent injuries. He rates his discomfort an 8/10. Home Medications Medication Instructions Recorded Confirmed Type quetiapine 25 mg tablet (Seroquel) 25 mg PO HS 01/05/23 01/05/23 History Allergies Allergy/AdvReac Type Severity Reaction Status Date / Time cephalexin Allergy Severe Hives Verified 01/05/23 21:08 sulfamethoxazole Allergy Severe Hives Verified 01/05/23 21:08 [From Bactrim] trimethoprim [From Bactrim] Allergy Severe Hives Verified 01/05/23 21:08 Past Med/Surg History Medical History Alcohol withdrawal Hepatic steatosis Alcohol dependence Alcohol intoxication Pneumonia Transaminitis Surgical History No pertinent past surgical history Family History Denies family history of Deep vein thrombosis Pulmonary embolism Social History Smoking Status: Current every day smoker Tobacco Type: E-cigarettes / Vaping Second Hand Exposure: No; Do You Dip or Chew Tobacco: No; Hx Alcohol Use: Yes Alcohol type: hard liquor Hx Substance Use: Yes Preferred Language: Malaysian Communication Ability: Effective 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 Beliefs That Will Affect Care: None Current Living Situation: Spouse Feels Safe at Home: Yes Assistive Devices: None Review of Systems A total of 10 systems reviewed and were otherwise negative Physical Exam Vital Signs Vital Signs - 24 hr 01/05/23 20:28 01/05/23 20:29 01/05/23 20:39 Temperature 36.8 C Temperature Source Oral Pulse Rate 86 95 H Pulse Rate [Apical] Pulse Rhythm Pulse Rhythm [Apical] Pulse Strength [Apical] Respiratory Rate 16 Respiratory Effort / Characteristics Non-Labored Respiratory Depth Normal Respiratory Pattern Regular Blood Pressure 157/106 H Blood Pressure [Left Arm] Blood Pressure Mean 123 Blood Pressure Mean [Left Arm] Blood Pressure Position [Left Arm] Pulse Oximetry 93 94 Oxygen Delivery Method Room Air Room Air Sepsis Recent Fever Within 48 Hours No Sepsis New/Unexplained Change in Mental Status N/A Sepsis Action Taken by Nursing No Action Required 01/05/23 22:52 01/05/23 22:52 01/05/23 23:38 Temperature 37.0 C Temperature Source Oral Pulse Rate 104 H Pulse Rate [Apical] 104 H 100 H Pulse Rhythm Regular Pulse Rhythm [Apical] Regular Pulse Strength [Apical] Normal Respiratory Rate 17 21 Respiratory Effort / Characteristics Non-Labored Spontaneous Respiratory Depth Normal Respiratory Pattern Regular Blood Pressure Blood Pressure [Left Arm] 130/93 140/96 Blood Pressure Mean Blood Pressure Mean [Left Arm] 105 110 Blood Pressure Position [Left Arm] Semi-fowlers Pulse Oximetry 97 97 95 Oxygen Delivery Method Room Air Room Air Sepsis Recent Fever Within 48 Hours Sepsis New/Unexplained Change in Mental Status Sepsis Action Taken by Nursing VITALS: Vitals are noted on the nurse's note and reviewed by myself. Vital signs stable. GENERAL: Well-developed, well-nourished, white male, who is laying on his abdomen secondary to his stated complaints. MOUTH: Mucous membranes moist. Tonsils are not enlarged. Pharynx without erythema, blood, or exudate. Uvula midline. Airway patent. NECK: Supple without nuchal rigidity. No lymphadenopathy. No thyromegaly. Cervical spine is nontender. HEART: Regular rate and rhythm without murmurs gallops or rubs. LUNGS: Clear to auscultation bilaterally without wheezes, rales or rhonchi. No retractions or accessory muscle use. ABDOMEN: Positive normal bowel sounds x 4. Soft, nontender, without masses or organomegaly. No guarding or rebound tenderness. MUSCULOSKELETAL: No muscle atrophy, erythema, or edema noted. Full range of motion in all extremities. No tremors. Course Administered Medications Potassium Chloride/Sodium Chloride (Normal Saline W/20 Meq Kcl) 20 meq in 1,000 mls @ 150 mls/hr IV .Q6H40M MARCY Stop: 02/05/23 01:30 Last Admin: 01/06/23 02:55 Dose: 150 mls/hr Documented By: AUDREY Lorazepam 1 mg/ Syringe 1 mls @ 2 mls/min IV UD PRN; Protocol PRN Reason: EtOH Withdrawal AWSS Score 6,7 Stop: 02/05/23 01:30 Last Admin: 01/06/23 02:14 Dose: 2 mls/min Documented By: AUDREY Ondansetron HCl (Ondansetron Inj 2 Mg/Ml 2 Ml Vial) 4 mg IV Q6H PRN PRN Reason: Nausea Stop: 02/05/23 01:30 Last Admin: 01/06/23 02:55 Dose: 4 mg Documented By: AUDREY Quetiapine Fumarate (Quetiapine Fumarate 25 Mg Tablet) 25 mg PO HS [facility] Stop: 02/05/23 20:59 Last Admin: 01/06/23 02:14 Dose: 25 mg Documented By: AUDREY Discontinued Medications Pantoprazole Sodium 40 mg/ (Syringe) 10 mls @ 5 mls/min IV NOW ONE Stop: 01/05/23 23:02 Last Admin: 01/05/23 23:32 Dose: 5 mls/min Documented By: AUDREY Famotidine (Pepcid 20mg Iv Push) 20 mg in 5 mls @ 2.5 mls/min IV NOW STA Stop: 01/05/23 23:02 Last Admin: 01/05/23 23:07 Dose: 2.5 mls/min Documented By: KATIA Multivitamins 10 ml/ Thiamine HCl 100 mg/ Folic Acid 1 mg/Sodium Chloride 1,011.2 mls @ 500 mls/hr IV .Q2H2M ONE Stop: 01/06/23 01:04 Last Infusion: 01/06/23 02:21 Dose: Infused Documented By: Admin: 01/05/23 23:32 Dose: 500 mls/hr Documented By: AUDREY Ioversol (Optiray 320 500ml) 125 ml IV ONCE ONE Stop: 01/06/23 00:28 Last Admin: 01/06/23 00:28 Dose: 111 ml Documented By: BEVERLY Lorazepam (Lorazepam 1 Mg/1 Ml Syr Ed Inj Use) 1 mg IV ONE STA Stop: 01/06/23 00:46 Last Admin: 01/06/23 00:52 Dose: 1 mg Documented By: AUDREY Medical Decision Making Differential Diagnosis Differential diagnosis: Etiologies such as gastroenteritis, food borne illness, infections, appendicitis, diverticulitis, inflammatory bowel disease, obstruction, GI bleed, biliary pathology, cardiac process, intracranial process, as well as others were entertained. Laboratory Data 01/05/23 20:50 01/05/23 20:50 Lab Results 01/05/23 01/05/23 01/05/23 Range/Units 20:50 23:37 23:38 WBC 3.33 L (4.8-10.8) K/ul RBC 5.56 (4.70-6.10) M/uL Hgb 17.6 (14.0-18.0) g/dl Hct 51.4 (42.0-52.0) % MCV 92.4 (80.0-100.0) fL MCH 31.7 (25.0-34.0) pg MCHC 34.2 (32.0-36.0) g/dL RDW Std Deviation 47.1 H (36.4-46.3) fL RDW Coeff of Nidia 13.8 (11.5-14.5) % Plt Count 169 (130-400) K/uL MPV 8.3 L (9.4-12.4) fL Immature Gran % (Auto) 0.3 % Neut % (Auto) 51.4 % Lymph % (Auto) 34.5 % [place] % (Auto) 10.8 % Eos % (Auto) 1.5 % Baso % (Auto) 1.5 % Neut # (Auto) 1.71 (1.40-6.50) K/uL Lymph # (Auto) 1.15 L (1.20-3.40) K/uL [place] # (Auto) 0.36 (0.11-0.59) K/uL Eos # (Auto) 0.05 (0.00-0.50) K/uL Baso # (Auto) 0.05 (0.00-0.20) K/uL Immature Gran # (Auto) 0.01 (0.01-0.20) K/uL PT 10.7 (9.0-12.0) Seconds INR 1.0 (0.9-1.1) APTT 27.5 (21.0-31.0) Seconds PTT Ratio 1.0 D-Dimer 950 H* (0-500) ug/L FEU Sodium 140 (136-145) mmol/L Potassium 3.7 (3.5-5.1) mmol/L Chloride 99 (98-107) mmol/L Carbon Dioxide 24 (21-32) mmol/L Anion Gap 17 H (3-11) BUN 10 (6-23) mg/dl Creatinine 0.90 (0.6-1.4) mg/dl Est Cr Clr Drug Dosing 105.2 ml/min Est GFR ( Amer) 135.2 ml/min Est GFR (Non-Af Amer) 116.6 ml/min BUN/Creatinine Ratio 11.1 (10-20) Glucose 120 H (70-99(Fasting)) mg/dl Calcium 9.5 (8.6-10.3) mg/dl Magnesium 2.0 (1.7-2.4) mg/dl Total Bilirubin 1.7 H (0.2-1.0) mg/dl AST 271 H (13-39) U/L ALT 140 H (7-52) U/L Alkaline Phosphatase 69 (34-104) U/L Ammonia 33.0 (18-72) umol/L Troponin I High Sens 9.8 (0-20) pg/ml Total Protein 8.8 H (6.0-8.3) gm/dl Albumin 5.0 (3.4-5.0) gm/dl Globulin 3.8 (2.5-4.0) gm/dl Albumin/Globulin Ratio 1.3 (0.9-2) Lipase 24 (11-82) U/L Urine Color Yellow Urine Appearance Clear (Clear) Urine pH 6.5 (4.5-7.5) Ur Specific [place] 1.013 (1.000-1.030) Urine Protein 2+ H (Negative) Urine Glucose (UA) Negative (Negative) Urine Ketones Negative (Negative) Urine Blood Trace H (Negative) Urine Nitrite Negative (Negative) Urine Bilirubin Negative (Negative) Urine Urobilinogen Negative (Negative) Ur Leukocyte Esterase Negative (Negative) Urine WBC (Auto) 1-5 (0-5) /hpf Urine RBC (Auto) 0-4 (0-4) /hpf U Hyaline Cast (Auto) 1-5 (0-5) /lpf U Epithel Cells (Auto) 0-5 (0-5) /lpf Urine Bacteria (Auto) Negative (Negative) Urine Opiates Screen Neg (Neg) Ur Methadone, Qual Neg (Neg) Urine Barbiturates Neg (Neg) Ur Phencyclidine (PCP) Neg (Neg) U Amphetamin/Meth Scrn Neg (Neg) MDMA (Ecstasy) Screen Neg (Neg) U Benzodiazepines Scrn Neg (Neg) Ur Cocaine Metabolite Neg (Neg) U Marijuana (THC) Screen Neg (Neg) Ethyl Alcohol mg/dL 437.6 H (<10.0) mg/dl Imaging Data Radiologist's Impression: Abdomen/Pelvis CT 01/05/23 23:34 Exam(s): CT ABDOMEN + PELVIS With Contrast IV Amt: 111 ML OPTIRAY 320 EXAM: CT Abdomen and Pelvis With Intravenous Contrast CLINICAL HISTORY: Reason for exam: right low chest/ruq pain. Alcohohlic, vomiting. TECHNIQUE: Axial computed tomography images of the abdomen and pelvis with intravenous contrast. CTDI is 7.41 mGy and DLP is 368.95 mGy-cm. Automated exposure control was utilized for the study. A dose lowering technique was utilized adhering to the principles of ALARA. CONTRAST: Patient received 111 ML OPTIRAY 320 of IV contrast COMPARISON: No relevant prior studies available. FINDINGS: Lung bases: Unremarkable. No mass. No consolidation. ABDOMEN: Liver: Hepatic steatosis. Gallbladder and bile ducts: Unremarkable. No calcified stones. No ductal dilation. Pancreas: Unremarkable. No mass. No ductal dilation. Spleen: Unremarkable. No splenomegaly. Adrenals: Unremarkable. No mass. Kidneys and ureters: Unremarkable. No solid mass. No hydronephrosis. Stomach and bowel: Unremarkable. No obstruction. No mucosal thickening. PELVIS: Appendix: No findings to suggest acute appendicitis. Bladder: Unremarkable. No mass. Reproductive: Unremarkable as visualized. ABDOMEN and PELVIS: Intraperitoneal space: Unremarkable. No free air. No significant fluid collection. Bones/joints: No acute fracture. No dislocation. Soft tissues: Unremarkable. Vasculature: Unremarkable. No abdominal aortic aneurysm. Lymph nodes: Unremarkable. No enlarged lymph nodes. IMPRESSION: Hepatic steatosis. Electronically signed by: Pk Hinojosa MD 01/06/23 01:39 AM Chest CTA 01/05/23 23:34 Exam(s): CTA CHEST IV Amt: 111 ML OPTIRAY 320 EXAM: CT Angiography Chest With Intravenous Contrast CLINICAL HISTORY: Reason for exam: PE. TECHNIQUE: Axial computed tomographic angiography images of the chest with intravenous contrast. CTDI is 12.77 mGy and DLP is 447.31 mGy-cm. Automated exposure control was utilized for the study. A dose lowering technique was utilized adhering to the principles of ALARA. MIP reconstructed images were created and reviewed. COMPARISON: No relevant prior studies available. FINDINGS: Pulmonary arteries: Unremarkable. No pulmonary embolism. Aorta: No acute findings. No thoracic aortic aneurysm. Lungs: Unremarkable. No mass. No consolidation. Pleural space: Unremarkable. No significant effusion. No pneumothorax. Heart: Unremarkable. No cardiomegaly. No significant pericardial effusion. No evidence of RV dysfunction. Bones/joints: No acute fracture. No dislocation. Soft tissues: Unremarkable. Lymph nodes: Unremarkable. No enlarged lymph nodes. Liver: Hepatic steatosis. IMPRESSION: No acute findings in the visualized arteries of the chest. Electronically signed by: Pk Hinojosa MD 01/06/23 01:28 AM ECG Data Attestation: I personally reviewed and interpreted this ECG as follows: Indication: + chest pain Additional Comments: Normal sinus rhythm @82 bpm Rightward axis Non-specific intra-ventricular conduction delay Borderline ECG When compared with ECG of 17-MAY-2022 12:04, No significant change was found MDM Narrative Physical exam and history were performed. Nursing notes, EMR, and Medication List were personally reviewed. No social concerns were identified as barriers to patients care. Patient appears to have nausea, vomiting, and concern for hematemesis. He is also with chest pain symptoms bringing him to the ER. Patient is an alcoholic. IV access was established and labs were obtained. Patient was given IV Pepcid, IV Protonix, and a banana bag here in the ER. An order was placed for continuous cardiac monitoring. The monitor shows a rate of 84 with normal sinus rhythm. Patient's blood work is as above and was reviewed. He does not have an elevated white blood cell count. Hemoglobin is 17.6. INR is 1.0. Magnesium is 2.0. He does have an elevation of his transaminases. Ammonia is normal. Troponin x1 is negative. D-dimer is elevated, and because of this CT scan of the chest and belly were performed. His alcohol is markedly elevated at 437. CT scans were reviewed by myself and radiology and do not show acute process to account for the patient's symptoms. Overall the patient does not appear well for discharge home. I have concerns regarding his drinking and possibly vomiting blood. Hemoglobin and vitals are stable at this time. The case was discussed with the on-call hospitalist team, who agreed to evaluate the patient here in the ER. Please see their dictation for further patient course, plan, and disposition. The chart was completed utilizing [employer] Voice Recognition Software. Grammatical errors, random word insertions, pronoun errors, and incomplete sentences are an occasional consequence of this system due to software limitations, ambient noise, and hardware issues. Any formal questions or concerns about the content, text, or information contained within the body of this dictation should be directly addressed to the provider for clarification. . Impression & Plan Hematemesis, Alcohol dependence Discharge Plan Visit Data Chief Complaint: Shortness of Breath/Dyspnea Stated Complaint: SHORTNESS OF BREATH, VOMITING SOME BLOOD ED Provider: Sofía Stringer ED Midlevel Provider: Steve Odonnell Discharge Problem: Hematemesis, Alcohol dependence Patient Disposition: Admitted As Inpatient Discharge Instructions Interventions: ED Discharge Assessment Last Done: 01/06/23 01:31
[2023-01-05 23:32] LABS: D Dimer 950 ug/L FEU (0-500)
[2023-01-05 23:50] LABS: Appearance Urine Clear (Clear); Bacteria Urine Automated Negative (Negative); Bilirubin Urine Negative (Negative); Blood Urine Trace (Negative); Color Urine Yellow; Epithelial Cell Urine Auto 0-5 /lpf (0-5); Glucose Urine UA Negative (Negative); Ketones Urine Negative (Negative); Leukocyte Esterase Urine Negative (Negative); Nitrite Urine Negative (Negative); Protein Urine 2+ (Negative); RBC Urine Automated 0-4 /hpf (0-4); Specific Gravity Urine 1.013 (1.000-1.030); Urobilinogen Urine Negative (Negative); pH Urine 6.5 (4.5-7.5)
[2023-01-06 00:06] LABS: Troponin I High Sensitivity 9.8 pg/ml (0-20)
[2023-01-06 00:10] LABS: Amphetamines+Metham, Urine Neg (Neg); Barbiturates, Urine Neg (Neg); Benzodiazepine, Urine Neg (Neg); Cocaine, Urine Neg (Neg); MDMA (Ecstacy), Urine Neg (Neg); Methadone, Urine Neg (Neg); Opiate, Urine Neg (Neg); Phencyclidine, Urine Neg (Neg)
--- NOTE | 2023-01-06 00:20 | History & Physical Report ---
Date of Service January 06, 2023 Assessment & Plan (1) Hematemesis: (2) Alcohol use disorder, severe, dependence: (3) Alcohol withdrawal: (4) Alcohol intoxication: (5) Suicidal ideation: (6) Depression: (7) Abnormal LFTs: Plan Hematemesis- Unclear to what extent, but patient had 2 small episodes of blood-tinged sputum Hemoglobin was 17.6 upon admission and platelets 169 Discussed this with patient associated with alcohol abuse Pantoprazole 40 mg IV twice daily Do not see and indication for octreotide at this time Follow serial laboratories Consult gastroenterology Alcohol dependence/alcohol withdrawal/alcohol intoxication- Received banana bag in the ED NSS + KCl 20 mEq at 150 mils per hour Placed on AWSS protocol with IV Ativan Thiamine 100 mg IV every morning Folic acid 1 mg IV every morning Discussed alcohol cessation Hepatic steatosis/abnormal LFTs- Total bilirubin 1.7, AST 271, ALT 140 CT abdomen pelvis primarily significant for hepatic steatosis, without varices being noted Follow serial CBC with differential, chemistry profile and magnesium level Elevated D-dimer- Negative CTA chest for PE History of Present Illness Chief Complaint: The patient presents to the emergency department with complaint of shortness of breath, dyspnea on exertion and today he began to spit up a small volume of blood twice today Primary Care Provider: NO PCP The patient is a 27-year-old male with past medical history of alcohol dependence, admissions for alcohol intoxication and alcohol withdrawal. He presents to the emergency department symptoms as noted above. He admits to at least half a gallon of vodka and take daily. He has not had issues with vomiting blood in the past He denies any recent use of NSAIDs His most recent admission to [facility] was from 09/20-09/24/2022 for suicidal ideation that he associated with his alcohol use. Allergies Allergy/AdvReac Type Severity Reaction Status Date / Time cephalexin Allergy Severe Hives Verified 01/05/23 21:08 sulfamethoxazole Allergy Severe Hives Verified 01/05/23 21:08 [From Bactrim] trimethoprim [From Bactrim] Allergy Severe Hives Verified 01/05/23 21:08 Home Medications Medication Instructions Recorded Confirmed Type quetiapine 25 mg tablet (Seroquel) 25 mg PO HS 01/05/23 01/05/23 History Past Med/Surg History Medical History (Updated 01/06/23 @ 03:16 by Balaji Howard MD) Alcohol withdrawal Hepatic steatosis Alcohol dependence Alcohol intoxication Pneumonia Transaminitis Surgical History No pertinent past surgical history Family History Denies family history of Deep vein thrombosis Pulmonary embolism Social History Smoking Status: Current every day smoker Tobacco Type: E-cigarettes / Vaping Second Hand Exposure: No; Do You Dip or Chew Tobacco: No; Hx Alcohol Use: Yes Alcohol type: hard liquor Hx Substance Use: Yes Preferred Language: Khmer Communication Ability: Effective Assistant Brand Manager Required: No Beliefs That Will Affect Care: None Current Living Situation: Spouse Feels Safe at Home: Yes Assistive Devices: None Review of Systems Review of Systems: The patient denies palpitations, lower extremity swelling, sore throat, fevers, chills, sweats, diarrhea, blood in urine or stool, dysuria, urinary frequency or urgency, lightheadedness, dizziness, headache, memory loss, loss of consciousness, imbalance, focal or generalized weakness, numbness or tingling in arms or legs, generalized arthralgias or myalgias, back or neck pain, or night sweats. The review of systems is otherwise negative other than for that already noted above, and at least 10 systems have been reviewed. Physical Exam Physical Exam: The patient is awake, alert and oriented 3, well developed and well nourished, normocephalic and atraumatic, lying in bed and in no acute distress. HEENT--PERRL, EOMI, mucous membranes and oropharynx dry. Neck--supple. No JVD. No bruits. Thyroid normal, trachea midline, no adenopathy. Heart--normal S1 and S2. No murmurs, rubs or gallops. Lungs--clear bilaterally, no respiratory distress, no accessory muscle use. Abdomen--normal bowel sounds and soft. Nontender. Nondistended Extremities--no cyanosis or clubbing. No edema. Dermatologic--normal skin turgor, normal color, no abnormal lymph nodes, no rash. Neurologic--cranial nerves II through XII grossly intact. Rheumatologic--normal range of motion. Psychiatric--anxious Results & Data Results & Data Vital Signs (Past 12 Hours) Vital Signs Temp Pulse Pulse Resp BP BP Pulse Ox 01/05/23 23:38 100 H 21 140/96 95 01/05/23 22:52 104 H 97 01/05/23 22:52 37.0 C 104 H 17 130/93 97 01/05/23 20:39 36.8 C 95 H 16 157/106 H 94 01/05/23 20:29 93 01/05/23 20:28 86 O2 Del Method 01/05/23 23:38 01/05/23 22:52 Room Air 01/05/23 22:52 Room Air 01/05/23 20:39 Room Air 01/05/23 20:29 Room Air 01/05/23 20:28 Laboratory Results Laboratory Results WBC 3.33 K/ul (4.8-10.8) L 01/05/23 20:50 RBC 5.56 M/uL (4.70-6.10) 01/05/23 20:50 Hgb 17.6 g/dl (14.0-18.0) 01/05/23 20:50 Hct 51.4 % (42.0-52.0) 01/05/23 20:50 MCV 92.4 fL (80.0-100.0) 01/05/23 20:50 MCH 31.7 pg (25.0-34.0) 01/05/23 20:50 MCHC 34.2 g/dL (32.0-36.0) 01/05/23 20:50 RDW Std Deviation 47.1 fL (36.4-46.3) H 01/05/23 20:50 RDW Coeff of Nidia 13.8 % (11.5-14.5) 01/05/23 20:50 Plt Count 169 K/uL (130-400) 01/05/23 20:50 MPV 8.3 fL (9.4-12.4) L 01/05/23 20:50 Immature Gran % (Auto) 0.3 % 01/05/23 20:50 Neut % (Auto) 51.4 % 01/05/23 20:50 Lymph % (Auto) 34.5 % 01/05/23 20:50 Red[place] % (Auto) 10.8 % 01/05/23 20:50 Eos % (Auto) 1.5 % 01/05/23 20:50 Baso % (Auto) 1.5 % 01/05/23 20:50 Neut # (Auto) 1.71 K/uL (1.40-6.50) 01/05/23 20:50 Lymph # (Auto) 1.15 K/uL (1.20-3.40) L 01/05/23 20:50 Redwood # (Auto) 0.36 K/uL (0.11-0.59) 01/05/23 20:50 Eos # (Auto) 0.05 K/uL (0.00-0.50) 01/05/23 20:50 Baso # (Auto) 0.05 K/uL (0.00-0.20) 01/05/23 20:50 Immature Gran # (Auto) 0.01 K/uL (0.01-0.20) 01/05/23 20:50 PT 10.7 Seconds (9.0-12.0) 01/05/23 20:50 INR 1.0 (0.9-1.1) 01/05/23 20:50 APTT 27.5 Seconds (21.0-31.0) 01/05/23 20:50 PTT Ratio 1.0 01/05/23 20:50 D-Dimer 950 ug/L FEU (0-500) H* 01/05/23 20:50 Sodium 140 mmol/L (136-145) 01/05/23 20:50 Potassium 3.7 mmol/L (3.5-5.1) 01/05/23 20:50 Chloride 99 mmol/L (98-107) 01/05/23 20:50 Carbon Dioxide 24 mmol/L (21-32) 01/05/23 20:50 Anion Gap 17 (3-11) H 01/05/23 20:50 BUN 10 mg/dl (6-23) 01/05/23 20:50 Creatinine 0.90 mg/dl (0.6-1.4) 01/05/23 20:50 Est Cr Clr Drug Dosing 105.2 ml/min 01/05/23 20:50 Est GFR ( Amer) 135.2 ml/min 01/05/23 20:50 Est GFR (Non-Af Amer) 116.6 ml/min 01/05/23 20:50 BUN/Creatinine Ratio 11.1 (10-20) 01/05/23 20:50 Glucose 120 mg/dl (70-99(Fasting)) H 01/05/23 20:50 Calcium 9.5 mg/dl (8.6-10.3) 01/05/23 20:50 Magnesium 2.0 mg/dl (1.7-2.4) 01/05/23 20:50 Total Bilirubin 1.7 mg/dl (0.2-1.0) H 01/05/23 20:50 AST 271 U/L (13-39) H 01/05/23 20:50 ALT 140 U/L (7-52) H 01/05/23 20:50 Alkaline Phosphatase 69 U/L (34-104) 01/05/23 20:50 Ammonia 33.0 umol/L (18-72) 01/05/23 23:38 Troponin I High Sens 9.8 pg/ml (0-20) 01/05/23 20:50 Total Protein 8.8 gm/dl (6.0-8.3) H 01/05/23 20:50 Albumin 5.0 gm/dl (3.4-5.0) 01/05/23 20:50 Globulin 3.8 gm/dl (2.5-4.0) 01/05/23 20:50 Albumin/Globulin Ratio 1.3 (0.9-2) 01/05/23 20:50 Lipase 24 U/L (11-82) 01/05/23 20:50 Urine Color Yellow 01/05/23 23:37 Urine Appearance Clear (Clear) 01/05/23 23:37 Urine pH 6.5 (4.5-7.5) 01/05/23 23:37 Ur Specific [place] 1.013 (1.000-1.030) 01/05/23 23:37 Urine Protein 2+ (Negative) H 01/05/23 23:37 Urine Glucose (UA) Negative (Negative) 01/05/23 23:37 Urine Ketones Negative (Negative) 01/05/23 23:37 Urine Blood Trace (Negative) H 01/05/23 23:37 Urine Nitrite Negative (Negative) 01/05/23 23:37 Urine Bilirubin Negative (Negative) 01/05/23 23:37 Urine Urobilinogen Negative (Negative) 01/05/23 23:37 Ur Leukocyte Esterase Negative (Negative) 01/05/23 23:37 Urine WBC (Auto) 1-5 /hpf (0-5) 01/05/23 23:37 Urine RBC (Auto) 0-4 /hpf (0-4) 01/05/23 23:37 U Hyaline Cast (Auto) 1-5 /lpf (0-5) 01/05/23 23:37 U Epithel Cells (Auto) 0-5 /lpf (0-5) 01/05/23 23:37 Urine Bacteria (Auto) Negative (Negative) 01/05/23 23:37 Urine Opiates Screen Neg (Neg) 01/05/23 23:37 Ur Methadone, Qual Neg (Neg) 01/05/23 23:37 Urine Barbiturates Neg (Neg) 01/05/23 23:37 Ur Phencyclidine (PCP) Neg (Neg) 01/05/23 23:37 U Amphetamin/Meth Scrn Neg (Neg) 01/05/23 23:37 MDMA (Ecstasy) Screen Neg (Neg) 01/05/23 23:37 U Benzodiazepines Scrn Neg (Neg) 01/05/23 23:37 Ur Cocaine Metabolite Neg (Neg) 01/05/23 23:37 U Marijuana (THC) Screen Neg (Neg) 01/05/23 23:37 Ethyl Alcohol mg/dL 437.6 mg/dl (<10.0) H 01/05/23 20:50 Impressions Abdomen/Pelvis CT 01/05/23 23:34 Exam(s): CT ABDOMEN + PELVIS With Contrast IV Amt: 111 ML OPTIRAY 320 EXAM: CT Abdomen and Pelvis With Intravenous Contrast CLINICAL HISTORY: Reason for exam: right low chest/ruq pain. Alcohohlic, vomiting. TECHNIQUE: Axial computed tomography images of the abdomen and pelvis with intravenous contrast. CTDI is 7.41 mGy and DLP is 368.95 mGy-cm. Automated exposure control was utilized for the study. A dose lowering technique was utilized adhering to the principles of ALARA. CONTRAST: Patient received 111 ML OPTIRAY 320 of IV contrast COMPARISON: No relevant prior studies available. FINDINGS: Lung bases: Unremarkable. No mass. No consolidation. ABDOMEN: Liver: Hepatic steatosis. Gallbladder and bile ducts: Unremarkable. No calcified stones. No ductal dilation. Pancreas: Unremarkable. No mass. No ductal dilation. Spleen: Unremarkable. No splenomegaly. Adrenals: Unremarkable. No mass. Kidneys and ureters: Unremarkable. No solid mass. No hydronephrosis. Stomach and bowel: Unremarkable. No obstruction. No mucosal thickening. PELVIS: Appendix: No findings to suggest acute appendicitis. Bladder: Unremarkable. No mass. Reproductive: Unremarkable as visualized. ABDOMEN and PELVIS: Intraperitoneal space: Unremarkable. No free air. No significant fluid collection. Bones/joints: No acute fracture. No dislocation. Soft tissues: Unremarkable. Vasculature: Unremarkable. No abdominal aortic aneurysm. Lymph nodes: Unremarkable. No enlarged lymph nodes. IMPRESSION: Hepatic steatosis. Electronically signed by: Pk Hinojosa MD 01/06/23 01:39 AM Chest CTA 01/05/23 23:34 Exam(s): CTA CHEST IV Amt: 111 ML OPTIRAY 320 EXAM: CT Angiography Chest With Intravenous Contrast CLINICAL HISTORY: Reason for exam: PE. TECHNIQUE: Axial computed tomographic angiography images of the chest with intravenous contrast. CTDI is 12.77 mGy and DLP is 447.31 mGy-cm. Automated exposure control was utilized for the study. A dose lowering technique was utilized adhering to the principles of ALARA. MIP reconstructed images were created and reviewed. COMPARISON: No relevant prior studies available. FINDINGS: Pulmonary arteries: Unremarkable. No pulmonary embolism. Aorta: No acute findings. No thoracic aortic aneurysm. Lungs: Unremarkable. No mass. No consolidation. Pleural space: Unremarkable. No significant effusion. No pneumothorax. Heart: Unremarkable. No cardiomegaly. No significant pericardial effusion. No evidence of RV dysfunction. Bones/joints: No acute fracture. No dislocation. Soft tissues: Unremarkable. Lymph nodes: Unremarkable. No enlarged lymph nodes. Liver: Hepatic steatosis. IMPRESSION: No acute findings in the visualized arteries of the chest. Electronically signed by: Pk Hinojosa MD 01/06/23 01:28 AM Code Status & VTE Plan Code Status Full code VTE Prophylaxis Plan VTE Prophylaxis will be ordered: Yes PG Care Time/CCT Total # of Minutes Spent Total Time Spent with Patient: Total time spent is greater than 50% in coordination of care (as documented) at patient's floor/unit and/or counseling patient: Coding Level of Care Code 23754 INT INP/OBS CARE 3/75MIN Diagnoses Hematemesis K92.0 Alcohol use disorder, severe, dependence F10.20 Alcohol withdrawal F10.939 Alcohol intoxication F10.929 Suicidal ideation R45.851 Depression F32.A Abnormal LFTs R79.89
[2023-01-06] MEDS ORDERED: OPTIRAY 320 500ml IV ONE (00:27)
[2023-01-06] MEDS ORDERED: LORazepam 1 MG/1 ML SYR ED Inj Use IV STA (00:45)
--- NOTE | 2023-01-06 01:29 | CT Scan Report ---
Exam(s): CTA CHEST IV Amt: 111 ML OPTIRAY 320 EXAM: CT Angiography Chest With Intravenous Contrast CLINICAL HISTORY: Reason for exam: PE. TECHNIQUE: Axial computed tomographic angiography images of the chest with intravenous contrast. CTDI is 12.77 mGy and DLP is 447.31 mGy-cm. Automated exposure control was utilized for the study. A dose lowering technique was utilized adhering to the principles of ALARA. MIP reconstructed images were created and reviewed. COMPARISON: No relevant prior studies available. FINDINGS: Pulmonary arteries: Unremarkable. No pulmonary embolism. Aorta: No acute findings. No thoracic aortic aneurysm. Lungs: Unremarkable. No mass. No consolidation. Pleural space: Unremarkable. No significant effusion. No pneumothorax. Heart: Unremarkable. No cardiomegaly. No significant pericardial effusion. No evidence of RV dysfunction. Bones/joints: No acute fracture. No dislocation. Soft tissues: Unremarkable. Lymph nodes: Unremarkable. No enlarged lymph nodes. Liver: Hepatic steatosis. IMPRESSION: No acute findings in the visualized arteries of the chest. Electronically signed by: Pk Hinojosa MD 01/06/23 01:28 AM
[2023-01-06] MEDS ORDERED: ONDANSETRON INJ 2 MG/ML 2 ML VIAL IV PRN (01:31)
[2023-01-06] MEDS ORDERED: Ativan IV Alcohol Withdrawal--Active Protocol IV PRN (01:31)
[2023-01-06] MEDS ORDERED: LORazepam 1 MG in SYRINGE 0.5 ML IV PRN (01:31)
[2023-01-06] MEDS ORDERED: LORazepam 3 MG in SYRINGE 1.5 ML IV PRN (01:31)
--- NOTE | 2023-01-06 01:41 | CT Scan Report ---
Exam(s): CT ABDOMEN + PELVIS With Contrast IV Amt: 111 ML OPTIRAY 320 EXAM: CT Abdomen and Pelvis With Intravenous Contrast CLINICAL HISTORY: Reason for exam: right low chest/ruq pain. Alcohohlic, vomiting. TECHNIQUE: Axial computed tomography images of the abdomen and pelvis with intravenous contrast. CTDI is 7.41 mGy and DLP is 368.95 mGy-cm. Automated exposure control was utilized for the study. A dose lowering technique was utilized adhering to the principles of ALARA. CONTRAST: Patient received 111 ML OPTIRAY 320 of IV contrast COMPARISON: No relevant prior studies available. FINDINGS: Lung bases: Unremarkable. No mass. No consolidation. ABDOMEN: Liver: Hepatic steatosis. Gallbladder and bile ducts: Unremarkable. No calcified stones. No ductal dilation. Pancreas: Unremarkable. No mass. No ductal dilation. Spleen: Unremarkable. No splenomegaly. Adrenals: Unremarkable. No mass. Kidneys and ureters: Unremarkable. No solid mass. No hydronephrosis. Stomach and bowel: Unremarkable. No obstruction. No mucosal thickening. PELVIS: Appendix: No findings to suggest acute appendicitis. Bladder: Unremarkable. No mass. Reproductive: Unremarkable as visualized. ABDOMEN and PELVIS: Intraperitoneal space: Unremarkable. No free air. No significant fluid collection. Bones/joints: No acute fracture. No dislocation. Soft tissues: Unremarkable. Vasculature: Unremarkable. No abdominal aortic aneurysm. Lymph nodes: Unremarkable. No enlarged lymph nodes. IMPRESSION: Hepatic steatosis. Electronically signed by: Pk Hinojosa MD 01/06/23 01:39 AM
[2023-01-06] MEDS: NSS + 20MEQ KCL 20 MEQ/1,000 ML BAG IV SCH ×3 (02:55→18:01)
[2023-01-06 07:23] LABS: Basophils # (auto) 0.04 K/uL (0.00-0.20); Basophils % (auto) 0.9 %; Eosinophils # (auto) 0.07 K/uL (0.00-0.50); Eosinophils % (auto) 1.5 %; Hematocrit (blood only) 45.5 % (42.0-52.0); Hemoglobin 15.3 g/dl (14.0-18.0); Immature Granulocytes # (auto) 0.01 K/uL (0.01-0.20); Immature Granulocytes % (auto) 0.2 %; Lymphocytes # (auto) 1.33 K/uL (1.20-3.40); Lymphocytes % (auto) 28.3 %; Mean Corpuscular Hemoglobin 31.5 pg (25.0-34.0); Mean Corpuscular Hgb Conc 33.6 g/dL (32.0-36.0); Mean Corpuscular Volume 93.6 fL (80.0-100.0); Mean Platelet Volume 8.4 fL (9.4-12.4); Monocytes # (auto) 0.55 K/uL (0.11-0.59); Monocytes % (auto) 11.7 %; Neutrophils % (auto) 57.4 %; Platelet Count 140 K/uL (130-400); RDW Coefficient of Variation 13.6 % (11.5-14.5); Red Blood Count 4.86 M/uL (4.70-6.10)
--- NOTE | 2023-01-06 07:45 | Hospitalist Progress Note ---
Date of Service January 06, 2023 Assessment & Plan (1) Hematemesis: (2) Alcohol use disorder, severe, dependence: (3) Alcohol withdrawal: (4) Alcohol intoxication: (5) Suicidal ideation: (6) Abnormal LFTs: Plan 27-year-old male with past medical history of alcohol dependence, admissions for alcohol intoxication and alcohol withdrawal. Alcohol dependence/alcohol withdrawal/alcohol intoxication- Placed on AWSS protocol with IV Ativan - received ativan doses - 1mgs and 2 mgs for scores of 6 and 8 NSS + KCl 20 mEq at 150 mils per hour Replace Thiamine 100 mg IV, Folic acid 1 mg IV Case management consulted for D and A treatment options. Hematemesis- had 2 small episodes of blood-tinged sputum Hemoglobin was 17.6 - 15.6 Pantoprazole 40 mg IV twice daily Follow CBC Consult gastroenterology - likely source alcoholic gastritis. Hepatic steatosis/abnormal LFTs- Total bilirubin 1.9, AST 172, ALT [address] abdomen pelvis primarily significant for hepatic steatosis, without varices being noted Follow serial CBC with differential, chemistry profile and magnesium level Code: Full code DVT PPx: SCDs Diet: NPO Dispo: PCU/telemetry Admission and Anticipated Discharge Date Admission Date: January 06, 2023 Supervising Physician Co-Signing Physician Notes Resident Physician Supervision Note: I independently interviewed and examined the patient and verified the swenson history and physical, reviewed labs and image studies and agree with resident findings and care plan. Subjective The patient is a 27-year-old male with past medical history of alcohol dependence, admissions for alcohol intoxication and alcohol withdrawal. Patient arrived to ER with SOB, dyspnea on exertion, and spit up of small volume of blood twice today. He admits to at least half a gallon of vodka and take daily. He has not had issues with vomiting blood in the past He denies any recent use of NSAIDs His most recent admission to [facility] was from 09/20-09/24/2022 for suicidal ideation that he associated with his alcohol use. Review of Systems Review of Systems: All systems reviewed & are unremarkable except as noted in HPI & below Physical Exam Physical Exam: HEENT--PERRL, EOMI, mucous membranes and oropharynx dry. Neck--supple. No JVD. No bruits. Thyroid normal, trachea midline, no adenopathy. Heart--normal S1 and S2. No murmurs, rubs or gallops. Lungs--clear bilaterally, no respiratory distress, no accessory muscle use. Abdomen--normal bowel sounds and soft. Nontender. Nondistended Extremities--no cyanosis or clubbing. No edema. Dermatologic--normal skin turgor, normal color, no abnormal lymph nodes, no rash. Neurologic--cranial nerves II through XII grossly intact. Rheumatologic--normal range of motion. Psychiatric--anxious Results & Data Results & Data Vital Signs (Past 12 Hours) Vital Signs Temp Pulse Pulse Resp BP BP Pulse Ox 01/06/23 06:15 84 18 121/75 97 01/06/23 04:56 88 22 144/85 H 99 01/06/23 02:22 36.8 C 105 H 22 125/86 01/06/23 02:22 01/06/23 00:40 89 23 146/100 H 98 01/06/23 00:30 89 01/05/23 23:38 100 H 21 140/96 95 01/05/23 22:52 104 H 97 01/05/23 22:52 37.0 C 104 H 17 130/93 97 01/05/23 20:39 36.8 C 95 H 16 157/106 H 94 01/05/23 20:29 93 01/05/23 20:28 86 Pulse Ox O2 Del Method O2 Del Method O2 Flow Rate 01/06/23 06:15 Nasal Cannula 2 01/06/23 04:56 Nasal Cannula 2 01/06/23 02:22 Room Air 01/06/23 02:22 98 Room Air 01/06/23 00:40 01/06/23 00:30 01/05/23 23:38 01/05/23 22:52 Room Air 01/05/23 22:52 Room Air 01/05/23 20:39 Room Air 01/05/23 20:29 Room Air 01/05/23 20:28 Resident Activity Tracking Resident Involvement: Resident Care Provided Care Provided: Adult Hospital Medicine
[2023-01-06 08:25] LABS: Albumin Globulin Ratio 1.4 (0.9-2); Albumin Level 4.3 gm/dl (3.4-5.0); BUN Creatinine Ratio 9.5 (10-20); Bilirubin,Total 1.9 mg/dl (0.2-1.0); Calcium 8.4 mg/dl (8.6-10.3); Creatinine Clr Calc Pharmacy 112.7 ml/min; Est GFR (African American) 139.1 ml/min; Globulin 3.1 gm/dl (2.5-4.0); Potassium 4.3 mmol/L (3.5-5.1); Total Protein 7.4 gm/dl (6.0-8.3)
[2023-01-06] MEDS: THIAMINE HCL 100 MG in SYRINGE 9 ML IV SCH (08:25)
[2023-01-06] MEDS: PANTOprazole 40 MG in SYRINGE 0 ML IV SCH ×2 (08:25→20:05)
[2023-01-06] MEDS: FOLIC ACID 1 MG in SYRINGE 9.8 ML IV SCH (08:25)
--- NOTE | 2023-01-06 08:29 | Electrocardiogram Report ---
Test Reason : Blood Pressure : / mmHG Vent. Rate : 082 BPM Atrial Rate : 082 BPM P-R Int : 148 ms QRS Dur : 118 ms QT Int : 384 ms P-R-T Axes : 078 106 069 degrees QTc Int : 448 ms Normal sinus rhythm Rightward axis Non-specific intra-ventricular conduction delay Borderline ECG When compared with ECG of 17-MAY-2022 12:04, No significant change was found Confirmed by Tito Franco ([id number]) on 01/06/2023 8:29:30 AM Referred By: REFERRED SELF Confirmed By:Tito Franco
--- NOTE | 2023-01-06 08:41 | XRay Report ---
XR chest 1V portable CLINICAL HISTORY: Dyspnea TECHNIQUE: Single frontal radiograph of the chest was obtained. Comparison: None available at the time of this dictation. FINDINGS: No lines and tubes are seen. The cardiomediastinal silhouette is normal. The lungs are clear. No evid ence of pleural effusion or pneumothorax. IMPRESSION: No acute chest disease. ACT 112: Negative or not required by law. Electronically signed by: Jim Beltran M.D. 01/06/2023 8:40 AM
[2023-01-06] MEDS ORDERED: DEXTROSE 50% 50 ML SYRINGE IV STA (11:42)
[2023-01-06] MEDS: LORazepam 2 MG in SYRINGE 1 ML IV PRN ×3 (12:16→20:28)
--- NOTE | 2023-01-06 16:26 | Gastrointestinal Consultation ---
Date of Consultation January 06, 2023 Assessment & Plan (1) Hematemesis: Young man with heavy alcohol abuse. Single episode of hematemesis with normal h/h likely alcoholic gastritis. For now will observe. I think the big problem is going to be withdrawal. Has no evidence of varices on CT scan so observation is best now. Will follow. History of Present Illness Reason for Consultation: hematemesis Attending Physician: Lila Cobos MD History of Present Illness 27 year old man who is currently drinking 1/2 gallon of liquor per day. Says for the past month. History poor due to his somnolence. Developed chest pain yesterday, shortness of breath a few days before. He tells me he had one episode of emesis with some blood present. None since. No problems prior to the last few days. Doesn't elaborate much more with his symptoms to me now. Allergies Allergy/AdvReac Type Severity Reaction Status Date / Time cephalexin Allergy Severe Hives Verified 01/05/23 21:08 sulfamethoxazole Allergy Severe Hives Verified 01/05/23 21:08 [From Bactrim] trimethoprim [From Bactrim] Allergy Severe Hives Verified 01/05/23 21:08 Home Medications Medication Instructions Recorded Confirmed Type quetiapine 25 mg tablet (Seroquel) 25 mg PO HS 01/05/23 01/05/23 History Patient History Medical History Alcohol withdrawal Hepatic steatosis Alcohol dependence Alcohol intoxication Pneumonia Transaminitis Surgical History No pertinent past surgical history Family History Denies family history of Deep vein thrombosis Pulmonary embolism Social History Smoking Status: Current every day smoker Tobacco Type: E-cigarettes / Vaping Second Hand Exposure: No; Do You Dip or Chew Tobacco: No; Hx Alcohol Use: Yes Alcohol type: hard liquor Hx Substance Use: Yes Preferred Language: Estonian Communication Ability: Effective Sr. Manager Required: No Beliefs That Will Affect Care: None Current Living Situation: Spouse Feels Safe at Home: Yes Assistive Devices: None Review of Systems Review of Systems: All systems reviewed & are unremarkable except as noted in HPI & below Physical Exam Constitutional: WD/WN, vitals as above + disheveled; no acute distress Eyes: PERRL, conjunctivae normal, anicteric sclerae ENMT: external ear and nose normal, oropharynx normal Neck: trachea midline, no thyromegaly Respiratory: normal respiratory effort, lungs clear to auscultation Cardiovascular: RRR, no murmur, no edema Gastrointestinal (Abdomen): normal bowel sounds, soft, nontender, no hepatosplenomegaly Musculoskeletal: Extremities: no cyanosis and no clubbing Skin: no rashes, warm and dry Neurologic: PERRL, EOMI, accommodation nl, no face palsy, no dysarthria Psychiatric: Orientation: alert and oriented x 3 Results & Data Vital Signs (Past 12 Hours) Vital Signs Pulse Resp BP Pulse Ox Pulse Ox O2 Del Method O2 Del Method 01/06/23 15:50 90 16 144/89 H 100 Nasal Cannula 01/06/23 15:50 100 Nasal Cannula 01/06/23 06:15 84 18 121/75 97 Nasal Cannula 01/06/23 04:56 88 22 144/85 H 99 Nasal Cannula O2 Flow Rate O2 Flow Rate 01/06/23 15:50 2 01/06/23 15:50 2 01/06/23 06:15 2 01/06/23 04:56 2 Laboratory Results 01/06/23 01/06/23 01/05/23 Range/Units 13:27 06:55 23:38 WBC 4.70 L (4.8-10.8) K/ul RBC 4.86 (4.70-6.10) M/uL Hgb 15.3 (14.0-18.0) g/dl Hct 45.5 (42.0-52.0) % MCV 93.6 (80.0-100.0) fL MCH 31.5 (25.0-34.0) pg MCHC 33.6 (32.0-36.0) g/dL RDW Std Deviation 47.0 H (36.4-46.3) fL RDW Coeff of Nidia 13.6 (11.5-14.5) % Plt Count 140 (130-400) K/uL MPV 8.4 L (9.4-12.4) fL Immature Gran % (Auto) 0.2 % Neut % (Auto) 57.4 % Lymph % (Auto) 28.3 % [place] % (Auto) 11.7 % Eos % (Auto) 1.5 % Baso % (Auto) 0.9 % Neut # (Auto) 2.70 (1.40-6.50) K/uL Lymph # (Auto) 1.33 (1.20-3.40) K/uL [place] # (Auto) 0.55 (0.11-0.59) K/uL Eos # (Auto) 0.07 (0.00-0.50) K/uL Baso # (Auto) 0.04 (0.00-0.20) K/uL Immature Gran # (Auto) 0.01 (0.01-0.20) K/uL PT (9.0-12.0) Seconds INR (0.9-1.1) APTT (21.0-31.0) Seconds PTT Ratio D-Dimer (0-500) ug/L FEU Sodium 141 (136-145) mmol/L Potassium 4.3 (3.5-5.1) mmol/L Chloride 103 (98-107) mmol/L Carbon Dioxide 27 (21-32) mmol/L Anion Gap 11 (3-11) BUN 8 (6-23) mg/dl Creatinine 0.84 (0.6-1.4) mg/dl Est Cr Clr Drug Dosing 112.7 ml/min Est GFR ( Amer) 139.1 ml/min Est GFR (Non-Af Amer) 120.0 ml/min BUN/Creatinine Ratio 9.5 L (10-20) Glucose 66 L (70-99(Fasting)) mg/dl POC Glucose 88 (70-99) mg/dl Calcium 8.4 L (8.6-10.3) mg/dl Magnesium (1.7-2.4) mg/dl Total Bilirubin 1.9 H (0.2-1.0) mg/dl AST 172 H (13-39) U/L ALT 109 H (7-52) U/L Alkaline Phosphatase 57 (34-104) U/L Ammonia 33.0 (18-72) umol/L Troponin I High Sens (0-20) pg/ml Total Protein 7.4 (6.0-8.3) gm/dl Albumin 4.3 (3.4-5.0) gm/dl Globulin 3.1 (2.5-4.0) gm/dl Albumin/Globulin Ratio 1.4 (0.9-2) Lipase (11-82) U/L Urine Color Urine Appearance (Clear) Urine pH (4.5-7.5) Ur Specific [place] (1.000-1.030) Urine Protein (Negative) Urine Glucose (UA) (Negative) Urine Ketones (Negative) Urine Blood (Negative) Urine Nitrite (Negative) Urine Bilirubin (Negative) Urine Urobilinogen (Negative) Ur Leukocyte Esterase (Negative) Urine WBC (Auto) (0-5) /hpf Urine RBC (Auto) (0-4) /hpf U Hyaline Cast (Auto) (0-5) /lpf U Epithel Cells (Auto) (0-5) /lpf Urine Bacteria (Auto) (Negative) Urine Opiates Screen (Neg) Ur Methadone, Qual (Neg) Urine Barbiturates (Neg) Ur Phencyclidine (PCP) (Neg) U Amphetamin/Meth Scrn (Neg) MDMA (Ecstasy) Screen (Neg) U Benzodiazepines Scrn (Neg) Ur Cocaine Metabolite (Neg) U Marijuana (THC) Screen (Neg) Ethyl Alcohol mg/dL (<10.0) mg/dl 01/05/23 01/05/23 Range/Units 23:37 20:50 WBC 3.33 L (4.8-10.8) K/ul RBC 5.56 (4.70-6.10) M/uL Hgb 17.6 (14.0-18.0) g/dl Hct 51.4 (42.0-52.0) % MCV 92.4 (80.0-100.0) fL MCH 31.7 (25.0-34.0) pg MCHC 34.2 (32.0-36.0) g/dL RDW Std Deviation 47.1 H (36.4-46.3) fL RDW Coeff of Nidia 13.8 (11.5-14.5) % Plt Count 169 (130-400) K/uL MPV 8.3 L (9.4-12.4) fL Immature Gran % (Auto) 0.3 % Neut % (Auto) 51.4 % Lymph % (Auto) 34.5 % [place] % (Auto) 10.8 % Eos % (Auto) 1.5 % Baso % (Auto) 1.5 % Neut # (Auto) 1.71 (1.40-6.50) K/uL Lymph # (Auto) 1.15 L (1.20-3.40) K/uL [place] # (Auto) 0.36 (0.11-0.59) K/uL Eos # (Auto) 0.05 (0.00-0.50) K/uL Baso # (Auto) 0.05 (0.00-0.20) K/uL Immature Gran # (Auto) 0.01 (0.01-0.20) K/uL PT 10.7 (9.0-12.0) Seconds INR 1.0 (0.9-1.1) APTT 27.5 (21.0-31.0) Seconds PTT Ratio 1.0 D-Dimer 950 H* (0-500) ug/L FEU Sodium 140 (136-145) mmol/L Potassium 3.7 (3.5-5.1) mmol/L Chloride 99 (98-107) mmol/L Carbon Dioxide 24 (21-32) mmol/L Anion Gap 17 H (3-11) BUN 10 (6-23) mg/dl Creatinine 0.90 (0.6-1.4) mg/dl Est Cr Clr Drug Dosing 105.2 ml/min Est GFR ( Amer) 135.2 ml/min Est GFR (Non-Af Amer) 116.6 ml/min BUN/Creatinine Ratio 11.1 (10-20) Glucose 120 H (70-99(Fasting)) mg/dl POC Glucose (70-99) mg/dl Calcium 9.5 (8.6-10.3) mg/dl Magnesium 2.0 (1.7-2.4) mg/dl Total Bilirubin 1.7 H (0.2-1.0) mg/dl AST 271 H (13-39) U/L ALT 140 H (7-52) U/L Alkaline Phosphatase 69 (34-104) U/L Ammonia (18-72) umol/L Troponin I High Sens 9.8 (0-20) pg/ml Total Protein 8.8 H (6.0-8.3) gm/dl Albumin 5.0 (3.4-5.0) gm/dl Globulin 3.8 (2.5-4.0) gm/dl Albumin/Globulin Ratio 1.3 (0.9-2) Lipase 24 (11-82) U/L Urine Color Yellow Urine Appearance Clear (Clear) Urine pH 6.5 (4.5-7.5) Ur Specific [place] 1.013 (1.000-1.030) Urine Protein 2+ H (Negative) Urine Glucose (UA) Negative (Negative) Urine Ketones Negative (Negative) Urine Blood Trace H (Negative) Urine Nitrite Negative (Negative) Urine Bilirubin Negative (Negative) Urine Urobilinogen Negative (Negative) Ur Leukocyte Esterase Negative (Negative) Urine WBC (Auto) 1-5 (0-5) /hpf Urine RBC (Auto) 0-4 (0-4) /hpf U Hyaline Cast (Auto) 1-5 (0-5) /lpf U Epithel Cells (Auto) 0-5 (0-5) /lpf Urine Bacteria (Auto) Negative (Negative) Urine Opiates Screen Neg (Neg) Ur Methadone, Qual Neg (Neg) Urine Barbiturates Neg (Neg) Ur Phencyclidine (PCP) Neg (Neg) U Amphetamin/Meth Scrn Neg (Neg) MDMA (Ecstasy) Screen Neg (Neg) U Benzodiazepines Scrn Neg (Neg) Ur Cocaine Metabolite Neg (Neg) U Marijuana (THC) Screen Neg (Neg) Ethyl Alcohol mg/dL 437.6 H (<10.0) mg/dl Diagnostic Findings Chest X-Ray 01/05/23 22:39 XR chest 1V portable CLINICAL HISTORY: Dyspnea TECHNIQUE: Single frontal radiograph of the chest was obtained. Comparison: None available at the time of this dictation. FINDINGS: No lines and tubes are seen. The cardiomediastinal silhouette is normal. The lungs are clear. No evidence of pleural effusion or pneumothorax. IMPRESSION: No acute chest disease. ACT 112: Negative or not required by law. Electronically signed by: Jim Beltran M.D. 01/06/2023 8:40 AM Abdomen/Pelvis CT 01/05/23 23:34 Exam(s): CT ABDOMEN + PELVIS With Contrast IV Amt: 111 ML OPTIRAY 320 EXAM: CT Abdomen and Pelvis With Intravenous Contrast CLINICAL HISTORY: Reason for exam: right low chest/ruq pain. Alcohohlic, vomiting. TECHNIQUE: Axial computed tomography images of the abdomen and pelvis with intravenous contrast. CTDI is 7.41 mGy and DLP is 368.95 mGy-cm. Automated exposure control was utilized for the study. A dose lowering technique was utilized adhering to the principles of ALARA. CONTRAST: Patient received 111 ML OPTIRAY 320 of IV contrast COMPARISON: No relevant prior studies available. FINDINGS: Lung bases: Unremarkable. No mass. No consolidation. ABDOMEN: Liver: Hepatic steatosis. Gallbladder and bile ducts: Unremarkable. No calcified stones. No ductal dilation. Pancreas: Unremarkable. No mass. No ductal dilation. Spleen: Unremarkable. No splenomegaly. Adrenals: Unremarkable. No mass. Kidneys and ureters: Unremarkable. No solid mass. No hydronephrosis. Stomach and bowel: Unremarkable. No obstruction. No mucosal thickening. PELVIS: Appendix: No findings to suggest acute appendicitis. Bladder: Unremarkable. No mass. Reproductive: Unremarkable as visualized. ABDOMEN and PELVIS: Intraperitoneal space: Unremarkable. No free air. No significant fluid collection. Bones/joints: No acute fracture. No dislocation. Soft tissues: Unremarkable. Vasculature: Unremarkable. No abdominal aortic aneurysm. Lymph nodes: Unremarkable. No enlarged lymph nodes. IMPRESSION: Hepatic steatosis. Electronically signed by: Pk Hinojosa MD 01/06/23 01:39 AM Chest CTA 01/05/23 23:34 Exam(s): CTA CHEST IV Amt: 111 ML OPTIRAY 320 EXAM: CT Angiography Chest With Intravenous Contrast CLINICAL HISTORY: Reason for exam: PE. TECHNIQUE: Axial computed tomographic angiography images of the chest with intravenous contrast. CTDI is 12.77 mGy and DLP is 447.31 mGy-cm. Automated exposure control was utilized for the study. A dose lowering technique was utilized adhering to the principles of ALARA. MIP reconstructed images were created and reviewed. COMPARISON: No relevant prior studies available. FINDINGS: Pulmonary arteries: Unremarkable. No pulmonary embolism. Aorta: No acute findings. No thoracic aortic aneurysm. Lungs: Unremarkable. No mass. No consolidation. Pleural space: Unremarkable. No significant effusion. No pneumothorax. Heart: Unremarkable. No cardiomegaly. No significant pericardial effusion. No evidence of RV dysfunction. Bones/joints: No acute fracture. No dislocation. Soft tissues: Unremarkable. Lymph nodes: Unremarkable. No enlarged lymph nodes. Liver: Hepatic steatosis. IMPRESSION: No acute findings in the visualized arteries of the chest. Electronically signed by: Pk Hinojosa MD 01/06/23 01:28 AM
[2023-01-06] MEDS ORDERED: QUEtiapine FUMARATE 25 MG TABLET PO SCH (21:00)
[2023-01-07] MEDS: NSS + 20MEQ KCL 20 MEQ/1,000 ML BAG IV SCH ×2 (02:26→09:54)
--- NOTE | 2023-01-07 06:44 | Hospitalist Progress Note ---
Date of Service January 07, 2023 Assessment & Plan (1) Hematemesis: (2) Alcohol use disorder, severe, dependence: (3) Alcohol withdrawal: (4) Alcohol intoxication: (5) Suicidal ideation: (6) Abnormal LFTs: Plan 27-year-old male with past medical history of alcohol dependence, admissions for alcohol intoxication and alcohol withdrawal. Alcohol dependence/alcohol withdrawal/alcohol intoxication- Placed on AWSS protocol with IV Ativan - received ativan doses - 2 mgs and 3 mgs for scores of 7 and 10 overnight D/ C NSS + KCl 20 mEq at 150 mils per hour Replace Thiamine 100 mg IV, Folic acid 1 mg IV On Regular diet Case management consulted for D and A treatment options. Hypomagnesemia M.6 Replaced today CMP AM Hematemesis-Resolved had 2 small episodes of blood-tinged sputum Hemoglobin was 17.6 - 15.6 Pantoprazole 40 mg IV twice daily Follow CBC Consult gastroenterology - likely source alcoholic gastritis. Hepatic steatosis/abnormal LFTs- Total bilirubin 3.6 AST 123, ALT [address] abdomen pelvis primarily significant for hepatic steatosis, without varices being noted Follow serial CBC with differential, chemistry profile and magnesium level Code: Full code DVT PPx: SCDs Diet: Regular diet Dispo: PCU/telemetry Admission and Anticipated Discharge Date Admission Date: January 06, 2023 Subjective The patient is a 27-year-old male with past medical history of alcohol dependence, admissions for alcohol intoxication and alcohol withdrawal. Patient arrived to ER with SOB, dyspnea on exertion, and spit up of small volume of blood twice today. He admits to at least half a gallon of vodka and take daily. He has not had issues with vomiting blood in the past He denies any recent use of NSAIDs His most recent admission to [facility] was from 09/20-09/24/2022 for suicidal ideation that he associated with his alcohol use. Patient evaluated today found alert, in NAD. He refers feeling well, he want to go home today. Patient score AWWS of 10 yesterday, needing Ativan. On regular diet, tolerating well, no nausea or vomits. Review of Systems Review of Systems: as per HPI Physical Exam Physical Exam: HEENT--PERRL, EOMI, mucous membranes and oropharynx dry. Neck--supple. No JVD. No bruits. Thyroid normal, trachea midline, no adenopathy. Heart--normal S1 and S2. No murmurs, rubs or gallops. Lungs--clear bilaterally, no respiratory distress, no accessory muscle use. Abdomen--normal bowel sounds and soft. Nontender. Nondistended Extremities--no cyanosis or clubbing. No edema. Dermatologic--normal skin turgor, normal color, no abnormal lymph nodes, no rash. Neurologic--cranial nerves II through XII grossly intact. Rheumatologic--normal range of motion. Psychiatric--anxious Results & Data Results & Data Vital Signs (Past 12 Hours) Vital Signs Temp Pulse Pulse Resp BP Pulse Ox O2 Del Method 01/07/23 05:20 36.4 C L 84 18 150/97 H 99 Room Air 01/07/23 01:44 36.9 C 92 H 18 155/92 H 98 Room Air 01/07/23 01:10 37.0 C 103 H 20 163/76 H 99 Room Air 01/06/23 22:49 36.7 C 101 H 20 143/79 H 98 Room Air 01/06/23 21:59 90 01/06/23 20:05 Room Air 01/06/23 19:00 37.1 C 101 H 18 148/73 H 98 Room Air Resident Activity Tracking Resident Involvement: Resident Care Provided Care Provided: Adult Hospital Medicine
[2023-01-07 07:41] LABS: Basophils # (auto) 0.03 K/uL (0.00-0.20); Basophils % (auto) 0.7 %; Eosinophils # (auto) 0.15 K/uL (0.00-0.50); Eosinophils % (auto) 3.7 %; Hematocrit (blood only) 41.5 % (42.0-52.0); Hemoglobin 14.5 g/dl (14.0-18.0); Immature Granulocytes # (auto) 0.01 K/uL (0.01-0.20); Immature Granulocytes % (auto) 0.2 %; Lymphocytes # (auto) 0.77 K/uL (1.20-3.40); Lymphocytes % (auto) 18.8 %; Mean Corpuscular Hemoglobin 32.4 pg (25.0-34.0); Mean Corpuscular Hgb Conc 34.9 g/dL (32.0-36.0); Mean Corpuscular Volume 92.8 fL (80.0-100.0); Mean Platelet Volume 8.9 fL (9.4-12.4); Monocytes # (auto) 0.63 K/uL (0.11-0.59); Monocytes % (auto) 15.4 %; Neutrophils # (auto) 2.51 K/uL (1.40-6.50); Neutrophils % (auto) 61.2 %; Platelet Count 122 K/uL (130-400); RDW Coefficient of Variation 12.9 % (11.5-14.5); Red Blood Count 4.47 M/uL (4.70-6.10)
[2023-01-07 07:55] LABS: Albumin Globulin Ratio 1.4 (0.9-2); Albumin Level 4.2 gm/dl (3.4-5.0); BUN Creatinine Ratio 11.4 (10-20); Bilirubin,Total 3.6 mg/dl (0.2-1.0); Calcium 9.3 mg/dl (8.6-10.3); Creatinine Clr Calc Pharmacy 110.2 ml/min; Est GFR (African American) 136.4 ml/min; Est GFR (Non-African American) 117.7 ml/min; Globulin 2.9 gm/dl (2.5-4.0); Magnesium 1.6 mg/dl (1.7-2.4); Potassium 3.7 mmol/L (3.5-5.1); Total Protein 7.1 gm/dl (6.0-8.3)
[2023-01-07] MEDS: FOLIC ACID 1 MG in SYRINGE 9.8 ML IV SCH (08:03)
[2023-01-07] MEDS: THIAMINE HCL 100 MG in SYRINGE 9 ML IV SCH (08:03)
[2023-01-07] MEDS: PANTOprazole 40 MG in SYRINGE 0 ML IV SCH (08:03)
[2023-01-07] MEDS: MAGNESIUM SULFATE / D5W 1 GM/100 ML BAG IV SCH ×3 (09:30→12:04)
[2023-01-07] MEDS ORDERED: GABAPENTIN 600MG ALCOHOL WITHDRAWAL LOAD PO STA (10:45)
[2023-01-07] MEDS ORDERED: GABAPENTIN 600 MG TAB PO ONE (10:45)
--- NOTE | 2023-01-07 12:16 | Discharge Summary ---
Date of Service January 07, 2023 Admission HPI Per Admitting Provider The patient is a 27-year-old male with past medical history of alcohol dependence, admissions for alcohol intoxication and alcohol withdrawal. He presents to the emergency department symptoms as noted above. He admits to at least half a gallon of vodka and take daily. He has not had issues with vomiting blood in the past He denies any recent use of NSAIDs His most recent admission to [facility] was from 09/20-09/24/2022 for suicidal ideation that he associated with his alcohol use. Admission Exam Per Admitting Provider The patient is awake, alert and oriented 3, well developed and well nourished, normocephalic and atraumatic, lying in bed and in no acute distress. HEENT--PERRL, EOMI, mucous membranes and oropharynx dry. Neck--supple. No JVD. No bruits. Thyroid normal, trachea midline, no adenopathy. Heart--normal S1 and S2. No murmurs, rubs or gallops. Lungs--clear bilaterally, no respiratory distress, no accessory muscle use. Abdomen--normal bowel sounds and soft. Nontender. Nondistended Extremities--no cyanosis or clubbing. No edema. Dermatologic--normal skin turgor, normal color, no abnormal lymph nodes, no rash. Neurologic--cranial nerves II through XII grossly intact. Rheumatologic--normal range of motion. Psychiatric--anxious Principal Diagnosis Alcohol withdrawal Alcohol dependence Gastritis Discharge Exam General: A&O to name, year, and place. NAD. Cooperative. HEENT: Atraumatic, normocephalic. Pulm: CTAB A&P. -wheezes, -rales, -rhonchi.. Cardiac: RRR, . Radial pulses intact and symmetrical. Abdominal: Nontender, nondistended, soft. BS present. Ext: warm, slightly moist. No tremor Sensation/strength grossly intact Discharge Data Allergies Allergy/AdvReac Type Severity Reaction Status Date / Time cephalexin Allergy Severe Hives Verified 01/05/23 21:08 sulfamethoxazole Allergy Severe Hives Verified 01/05/23 21:08 [From Bactrim] trimethoprim [From Bactrim] Allergy Severe Hives Verified 01/05/23 21:08 Consultations 01/06/23 00:35 ED Decision to Admit Stat 01/06/23 03:20 Consult Gastroenterology Routine Ordered Studies 01/05/23 23:34 CT abd pelvis IV con only Stat CT angio chest PE protocol Stat Hospital Course (1) Hematemesis: (2) Alcohol use disorder, severe, dependence: (3) Alcohol withdrawal: (4) Alcohol intoxication: (5) Suicidal ideation: (6) Abnormal LFTs: Plan 27-year-old male with past medical history of alcohol dependence, admissions for alcohol intoxication and alcohol withdrawal. Here for complaint of shortness of breath, dyspnea on exertion and today he began to spit up a small volume of blood twice today. Alcohol dependence/alcohol withdrawal/alcohol intoxication- Patient was admitted on AWSS protocol with IV Ativan. During the admission he scored 7s and 10s, needing a couple of dose of 2-3 grams. of Ativan. He was treated with banana bag, multivitamin, thiamine and folic acid. Case management was consulted for D and A treatment options. Patient refers strongly that he wanted to go home today due to work issues. He did refers he have schedule to do short term rehab outpatient. We agreed to do gabapentin taper for withdrawal symptoms, first dose given here. He was oriented about Naltrexone for alcohol withdrawal symptoms, he agreed but left without prescription. Hematemesis-Resolved No episode during the admission. GI consulted. Likely source of alcoholic gastritis. Treated with IV pantoprazole. Hemoglobin stable during the admission. Last hgb: 14.5 Hepatic steatosis/abnormal LFTs- Total bilirubin 3.6, LFTs in decreasing trend. CT: significant for hepatic steatosis, no varices noted. Patient oriented to follow up with PCP and strongly abstained from alcohol Total Time Total Time Spent Total Time Spent (In Minutes): see attending attestation Discharge Plan Discharge Items Patient Disposition: Home - Self-Care Reason For Visit: UGI BLEED, ALCOHOL INTOX, ALCOHOL DEPENDENCE/HEPAT Discharge Diagnosis: Alcohol withdrawal Alcohol dependence Gastritis Activity: Per Instructions section Non-emergency contact: Primary Care Provider Call non-emergency contact if: you have any medication questions and your pain is worsening Follow-up/Referrals: PCP,NO [Primary Care Provider] - Diet: Regular Addtl Attending Provider Instructions: You were admitted to the hospital due to spitting up blood and alcohol withdrawal symptoms You were treated with antacids, fluids and symptoms management. During your admission you were found hepatic steatosis. It is important to follow up with your primary. And continue the outpatient rehab as schedule A discharge summary will be sent to your primary care physician to ensure continuity of care. Please bring this discharge summary with you to your next office appointment so that your provider can review it at that time. Follow-up appointments: Make a follow-up appointment with your PCP within the next week. It is very important that you follow up with them shortly after discharge from the hospital. Medications: Your medication list has been reviewed and reconciled upon discharge to ensure accuracy and continuity of care. An updated list of all your medications is included with your hospital discharge paperwork. Please review this list closely, and make note of any changes. We sent a new medication called Gabapentin 100 mg to your pharmacy. Take 200 mg today (2 tab) Take 600 mg the second day (6 tabs) Take 400 mg the third day (4 tabs) Take 200 mg the fourth day ( 2 tabs) Difficulty following your treatment plan, or difficulty taking medications CALL 911 OR GO TO THE EMERGENCY DEPARTMENT if you experience any of the following: Sudden, severe abdominal pain or nausea/vomiting Severe chest pain, or chest pain that radiates (moves) to your jaw or arm Sudden, severe shortness of breath or difficulty breathing Thank you for allowing us to participate in your care. Pending Studies at Discharge: No Stand-Alone Forms: My [facility], Smoking Cessation Medications and DC Order Prescriptions: New gabapentin 100 mg capsule 100 mg PO DAILY Qty: 14 0RF Rx Instructions: Take 200 mg today (2 tab) Take 600 mg the second day (6 tabs) Take 400 mg the third day (4 tabs) Take 200 mg the fourth day ( 2 tab) Continued quetiapine [Seroquel] 25 mg Tablet 25 mg PO HS Rx Instructions: UNABLE TO VERIFY THIS MED OR DOSE. Discharge Orders: Discharge Order (Routine); Ordered 01/07/23 Ordered By: Warren Anders/Other Patient Handouts: Alcohol Withdrawal: What to Expect, Addiction: Getting Help, Addiction Recovery Counseling Admission Data Admit Date/Time: 01/06/23 00:18 Attending Provider: Lila Cobos Admit Provider: Balaji Howard Primary Care Provider: PCP,NO Other Providers: Balaji Howard; Raquel Gupta Jr Other Interventions: Discharge Summary Assessment (RN) Last Done: 01/07/23 12:14 Supervising Physician Co-Signing Physician Notes Resident Physician Supervision Note: I independently interviewed and examined the patient and verified the swenson history and physical, reviewed labs and image studies and agree with resident findings and care plan. Extensive h/o severe alcohol use ds. wanted to go home - would have left AMA if not discharged. needed dose of lorazepam at night. o/e - tremulous. alert/oriented. heart- regular, lung - CTA AUD with withdrawal - home with short gabapentin taper. declined any help with D and A service hemetemesis - likely from alcoholic gastritis. resolved. hepatic steatosis - encouraged refraining from alcohol. further outpatient f/u. Anxiety - on seroquel as outpatient. f/u with pcp for med titration. Resident Activity Tracking Resident Involvement: Resident Care Provided Care Provided: Adult Hospital Medicine
[2023-01-07] MEDS ORDERED: GABAPENTIN 100 MG CAP PO SCH (17:00)
[2023-01-08] MEDS ORDERED: GABAPENTIN 600 MG TAB PO SCH (10:45)
[2023-01-09] MEDS ORDERED: GABAPENTIN 400 MG CAP PO SCH (10:45)
[2023-01-10] MEDS ORDERED: GABAPENTIN 100 MG CAP PO SCH (10:45)
== END 2023-01-07 12:33 | disposition home or self-care (01) | DRG 896 ==
LOC: ED 20:11 → SUATTDRO 01-06 00:18 → EDINP 01-06 00:18 → 2S 01-06 01:31

== ENCOUNTER 2023-03-30 03:32 | Inpatient (IN) ==
--- OUTSIDE RECORDS SUMMARY | 2023-03-30 03:39 | External Medical Summary ---
Author Name Unknown Address Unknown Organization [id number]:LABORATORY [facility] - [address] [id number] Laboratory Report Ordering Provider Test Date Status JUAN BENJAMIN 01/08/2023 02:34:25 Fin al SCREENING Observation Date Value Abnormality Reference (Units ) Status SARS Coronavirus 2 01/08/2023 02:34:25 Negative N egative Final No SARS-CoV2 Coronavirus RNA detected by PCR (amplified probe).
This express test was developed and its performance characteristics determined by [facility]. It has not been cleared or approved by the U.S. Food and Drug Administration (FDA). FDA does not require this test to go thru premarket FDA review. This test is used for clinical purposes. It should not be regarded as investigational or for research. This laboratory is certified under the Clinical Laboratory Improvement Amendments (CLIA) as qualified to perform high complexity clinical laboratory testing.

This test is a nucleic acid amplification test (NAAT), a reverse transcriptase polymerase chain reaction (RT-PCR) test, or a Centers for Disease Control-acceptable equivalent. The test is performed in a high complexity Clinical Laboratory Improvement Amendments-(CLIA) certified laboratory. The test is acceptable for SARS-CoV-2 diagnosis, surveillance, and travel within the [place] and to most countries. Please check with local testing authorities about requirements before travel.

The validation of bronchial specimens, tracheal aspirates, and sputum for this assay was developed and performance characteristics determined by [facility]. The validation of alternate specimen types has not been cleared or approved by the U.S. Food and Drug Administration (FDA). It has been determined that such clearance is not necessary. Influenza virus A RNA [Prese nce] in Specimen by [facility]EN with probe detection 01/08/2023 02:34:25 Negative Negative Final No Influenza A RNA detected by PCR (amplified probe) Influenza virus B RNA [Prese nce] in Specimen by [facility] with probe detection 01/08/2023 02:34:25 Negative Negative Final No Influenza B RNA detected by PCR (amplified probe) Respiratory syncytial virus RNA [Identifier] in Specimen by OWEN with probe detection 01/08/2023 02:34:25 Negative Negative Final No Respiratory Syncytial Vir us RNA detected by PCR (amplified probe) Performing Location LABORATORY [address] [id number]
--- OUTSIDE RECORDS SUMMARY | 2023-03-30 03:39 | External Medical Summary | Summary of Care ---
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 4 grams (4000 mg) per day. Acetaminophen (Tylenol) tab 975 mg(Linked Group 1) 975 mg, Oral, Q6H PRN Pain, Severe, Starting on Sendy 01/09/23 at 1512, Until 01/12/23 at 1428, Maximum of 4 grams (4000 mg) per day. Haloperidol (Haldol) tab 5 mg(Linked Group 2) 5 mg, Oral, Q6H PRN Other, Psychosis, Starting on Sendy 01/09/23 at 1512, Until 01/12/23 at 1428 Haloperidol Lactate (Haldol) 5 MG/ML inj 5 mg(Linked Group 2) 5 mg, Intramuscular, Q6H PRN Other, Psychosis, unable to take PO, Starting on Sendy 01/09/23 at 1512, Until 01/12/23 at 1428 house antacid (Mi-Acid II) oral susp 15 mL 15 mL, Oral, Q4H PRN Indigestion, Nausea, Starting on Sendy 01/09/23 at 1512, Until 01/12/23 at 1428, SHAKE WELL hydrOXYzine HCl tab 50 mg 50 mg, Oral, Q6H PRN Anxiety, Starting on Sendy 01/09/23 at 1512, Until 01/12/23 at 1428 LORazepam (Ativan) inj 2 mg(Linked Group 3) 2 mg, Intramuscular, Q6H PRN Agitation, Other, unable to take PO, Starting on Sendy 01/09/23 at 1512, Until 01/12/23 at 1428, MUST FURTHER DILUTE FOR IV PUSH WITH EQUAL VOLUME OF NSS LORazepam (Ativan) inj 2 mg 2 mg, Intramuscular, ONCE PRN breakthrough agitation or breakthrough anxiety, Starting on Sendy 01/09/23 at 1512, Until 01/12/23 at 1428, For 1 dose, MUST FURTHER DILUTE FOR IV PUSH WITH EQUAL VOLUME OF NSS LORazepam (Ativan) tab 1 mg(Linked Group 3) 1 mg, Oral, Q6H PRN Agitation, Starting on Sendy 01/09/23 at 1512, Until 01/12/23 at 1428 milk of magnesia (Mom) oral susp 30 mL 30 mL, Oral, DAILY PRN Constipation, Starting on Sendy 01/09/23 at 1512, Until 01/12/23 at 1428 traZODone (Desyrel) tab 50 mg 50 mg, Oral, QHS PRN MRX1 Insomnia, Starting on Sendy 01/09/23 at 1512, Until 01/12/23 at 1428, May repeat one dose if not effective within 60 minutes Linked Groups Order Group 1: Acetaminophen (Tylenol) tab 325 mgJump to med 325 mg, Oral, Q4H PRN Pain, Mild, Starting on Sendy 01/09/23 at 1512, Until 01/12/23 at 1428, Maximum of 4 grams (4000 mg) per day. Or Acetaminophen (Tylenol) tab 650 mgJump to med 650 mg, Oral, Q6H PRN Pain, Moderate, Fever >38C(100.5F), Starting on Sendy 01/09/23 at 1512, Until 01/12/23 at 1428, Maximum of 4 grams (4000 mg) per day. Or Acetaminophen (Tylenol) tab 975 mgJump to med 975 mg, Oral, Q6H PRN Pain, Severe, Starting on Sendy 01/09/23 at 1512, Until 01/12/23 at 1428, Maximum of 4 grams (4000 mg) per day. Group 2: Haloperidol (Haldol) tab 5 mgJump to med 5 mg, Oral, Q6H PRN Other, Psychosis, Starting on Sendy 01/09/23 at 1512, Until 01/12/23 at 1428 Or Haloperidol Lactate (Haldol) 5 MG/ML inj 5 mgJump to med 5 mg, Intramuscular, Q6H PRN Other, Psychosis, unable to take PO, Starting on Sendy 01/09/23 at 1512, Until 01/12/23 at 1428 Group 3: LORazepam (Ativan) tab 1 mgJump to med 1 mg, Oral, Q6H PRN Agitation, Starting on Sendy 01/09/23 at 1512, Until 01/12/23 at 1428 Or LORazepam (Ativan) inj 2 mgJump to med 2 mg, Intramuscular, Q6H PRN Agitation, Other, unable to take PO, Starting on Sendy 01/09/23 at 1512, Until 01/12/23 at 1428, MUST FURTHER DILUTE FOR IV PUSH WITH EQUAL VOLUME OF NSS documented in this encounter Advance Directives Latest Code Status on File Code Status Date Activated Date Inactivated Comments Full Code 01/09/2023 3:12 PM 01/12/2023 2:28 PM Thi s order reflects the patients wishes and were consensually agreed upon. Question Answer Comments Discussion of Advance Directives occurred with: Patient Does the patient have a Living Will? No Does the patient have Health Care Power of Plastic Surgeon? No Code Status History Code Status Date Activated Date Inactivated Comments Full Code 06/13/2015 10:30 AM 06/15/2015 6:35 PM This order reflects the patients wishes and were consensually agreed upon. Question Answer Comments Discussion of Advance Directives occurred with: Not Discussed Does the patient have a Living Will? No Does the patient have Health Care Power of Plastic Surgeon? No
--- OUTSIDE RECORDS SUMMARY | 2023-03-30 03:39 | External Medical Summary | Summary of Care ---
Author Name Unknown Organization [facility] Address [address] [place] [address] Phone [phone] Care Team Providers Care Refueling Ramp Supervisor Name Role Phone Unavailable Primary Care Provider Unavailabl e Reason for Visit * Reason Onset Date Comments Hospital Follow-Up 01/10/2023 Pls call back re: Naltrexone Encounter Details Date Type Department Care Team (Late st Contact Info) Description 01/10/2023 Telephone [facility] [address] [place] [address] Laurie Paiz MD [address] [place] [address] Hospital Follow-Up (Pls call back re: Nalt... Allergies No known active allergiesdocumented as of this encounter (statuses as of 01/10/2023) Medications Medication Sig Dispensed Refills Start Date End Date Status Proventil HFA 108 (90 Base) MCG/ACT Inhalation Aerosol SolutionIndications :Bronchitis due to 2019 novel coronavirus Inhale 2 Puffs by mouth every 4 hours as needed for Wheezing. 8 g 0 12/06/2020 Suspended Additional Information Patient not taking.Reported on 01/09/2023 LORazepam 0.5 MG Oral Tablet (Ativan) Take 1 Tablet by mouth every 6 hours as needed. 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 Advised previous message. Verbalized understanding. States pt is already taking it and will just need to med continued when he see's Dr. Paiz on 01/20. * Telephone Encounter - Ana Saenz LPN - 01/10/2023 2:11 PM EST Roseanne transferred to Brenda in the [place] office * Telephone Encounter - Brenda Calzada MED ASSIST - 01/10/2023 2:03 PM EST Tried to call Roseanne. No answer. Left message to call back. Per Dr. Paiz she would prescribe naltrexone if assessed and needed. Please advise. * Telephone Encounter - Stacey Babcock OSA - 01/10/2023 1:44 PM EST Roseanne w/ Cristian calling to schedule hospital f/u. Pt will be d/c from [facility] on 01/12. Appt scheduled 01/20 w/ Dr. Paiz, as that was the soonest available appt. Roseanne also wanted to know if Dr. Paiz would be able to prescribe Naltrexone for the pt once he's discharged. Spoke w/ nurse in the office, who will discuss w/ Dr. Paiz and reach out to Roseanne.Pls call her at [phone]. No further questions/ concerns at this time. documented in this encounter Plan of Treatment Upcoming Encounters Date Type Department Care Team (Late st Contact Info) Description 01/20/2023 1:20 PM EST Office Visit [facility] [address] [place] [address] Laurie Paiz MD [address] [place] [address] Health Maintenance Due Date Last Done Comments Hepatitis B (1 of 3 - 3-dose series) 1995 COVID-19 Vaccine (#1) 01/07/1996 Depression Screening 2007 HIV Screening 07/06/2010 Hepatitis C Screening 07/06/2013 DTaP,Tdap,and Td Vaccines (1 - Tdap) 07/06/2014 Influenza Vaccine (FLU shot) (#1) 2022 GARDASIL-HPV IMMUNIZATION SERIES Aged Out No longer eligible based on patient's age to complete this topic MENINGOCOCCAL (MENACTRA/MENVEO) Aged Out No longer eligible based on patient's age to complete this topic Pneumococcal Vaccine: Pediat rics (0 to 5 Years) and At-Risk Patients (6 to 64 Years) Aged Out No longer eligible b ased on patient's age to complete this topic documented as of this encounter Medical Devices Not on filedocumented as of this encounter Advance Directives Latest Code Status on File Code Status Date Activated Date Inactivated Comments Full Code 01/09/2023 3:12 PM This orde r reflects the patients wishes and were consensually agreed upon. Question Answer Comments Discussion of Advance Directives occurred with: Patient Does the patient have a Living Will? No Does the patient have Health Care Power of Sign Builder? No Code Status History Code Status Date Activated Date Inactivated Comments Full Code 06/13/2015 10:30 AM 06/15/2015 6:35 PM This order reflects the patients wishes and were consensually agreed upon. Question Answer Comments Discussion of Advance Directives occurred with: Not Discussed Does the patient have a Living Will? No Does the patient have Health Care Power of Sign Builder? No
--- OUTSIDE RECORDS SUMMARY | 2023-03-30 03:39 | External Medical Summary | Summary of Care ---
Author Name Unknown Organization [facility] Address [address] [place] [address] Phone [phone] Care Team Providers Care Box Office Manager Name Role Phone Laurie Paiz MD Primary Care Provid er Reason for Visit * Reason Onset Date Comments Appointment 02/03/2023 Vascular Ultraso und Encounter Details Date Type Department Care Team ([facility] st Contact Info) Description 02/03/2023 Telephone [facility] [address] [place] [address] Laurie Paiz MD [address] [place] [address] Appointment (Vascular Ultrasound) Allergies Active Allergy Reactions Criticality Noted Date Comments Cephalexin High 05/17/2022 Other Reaction(s): Hives Sulfamethoxazole High 05/17/2022 Other Reaction(s): Hives Trimethoprim High 05/17/2022 Other Reaction(s): Hives documented as of this encounter (statuses as of 02/03/2023) Medications Medication Sig Dispensed Refills Start Date End Date Status Proventil HFA 108 (90 Base) MCG/ACT Inhalation Aerosol SolutionIndications :Bronchitis due to 2019 novel coronavirus Inhale 2 Puffs by mouth every 4 hours as needed for Wheezing. 8 g 0 12/06/2020 Active Additional Information Patient not taking.Reported on 01/09/2023 hydrOXYzine HCl 10 MG Oral Tablet (Atarax)Indications :Anxiety Take 1 Tablet by mouth every 6 hours as needed for Anxiety. 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 02/03/2023 documented in this encounter Plan of Treatment Upcoming Encounters Date Type Department Care Team (Late st Contact Info) Description 02/18/2023 11:00 AM EST Laboratory Laboratory, [place] [address] [place] [facility] [place] [address] [facility] [address] [place] [address] 04/22/2023 11:00 AM EST Office Visit Family Practice, [place] [address] [place] [facility] [place] [address] Laurie Paiz MD [address] [place] [address] Health Maintenance Due Date Last Done Comments Hepatitis B (1 of 3 - 3-dose series) 1995 COVID-19 Vaccine (#1) 01/07/1996 Pneumococcal Vaccine: Pediat rics (0 to 5 Years) and At-Risk Patients (6 to 64 Years) (1 - PCV) 07/06/2001 Depression Screening 2007 DTaP,Tdap,and Td Vaccines (1 - Tdap) 07/06/2014 [...] the patient have Health Care Power of College Admissions Counselor? No Code Status History Code Status Date Activated Date Inactivated Comments Full Code 06/13/2015 10:30 AM 06/15/2015 6:35 PM This order reflects the patients wishes and were consensually agreed upon. Question Answer Comments Discussion of Advance Directives occurred with: Not Discussed Does the patient have a Living Will? No Does the patient have Health Care Power of College Admissions Counselor? No Care Teams Box Office Manager Relationship Specialty Start Date End Date Laurie Paiz MD [address] [facility] [place] [address] PCP - General Family Medicine 01/14/23 documented as of this encounter
--- OUTSIDE RECORDS SUMMARY | 2023-03-30 03:39 | External Medical Summary ---
Author Name Unknown Address Unknown Organization K1G:[facility] - [address] [place] [id number] Laboratory Report Ordering Provider Test Date Status JUAN BENJAMIN 01/08/2023 02:33:17 Fin al Observation Date Value Abnormality Reference (Units ) Status Acetaminophen 01/08/2023 02:33:17 <5.0 Below low normal 10.0-30.0 (ug/mL) Final Performing Location [facility] - [address] [place] [id number]
--- OUTSIDE RECORDS SUMMARY | 2023-03-30 03:39 | External Medical Summary ---
Author Name Unknown Address Unknown Organization K1G:[facility] - [address] [place] [id number] Laboratory Report Ordering Provider Test Date Status JUAN BENJAMIN 01/08/2023 02:33:17 Fin al Observation Date Value Abnormality Reference (Units ) Status Ethanol 01/08/2023 02:33:17 340.0 Above high normal Ne gative (mg/dL) Final Performing Location [facility] - [facility] [id number]
--- OUTSIDE RECORDS SUMMARY | 2023-03-30 03:39 | External Medical Summary | Summary of Care ---
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); Alcohol use disorder, severe, dependence (HCC); Alcohol-induced mood disorder (HCC); Therapeutic drug monitoring Allergies Active Allergy Reactions Criticality Noted Date [...] on file documented as of this encounter Plan of Treatment Upcoming Encounters Date Type Department Care Team (Late st Contact Info) Description 02/18/2023 11:00 AM EST Laboratory [facility], [place] [address] [place] [address] [place] [address] [place] [address] 04/22/2023 11:00 AM EST Office Visit Family Practice, [place] [address] [place] [address] Laurie Paiz MD [address] [place] [address] Pending Results Name Type Priority Associated Diagnoses Date /Time COMPREHENSIVE METABOLIC PANEL Lab Routine 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) Alcohol use disorder, severe, dependence (HCC) Alcohol-induced mood disorder (HCC) Therapeutic drug monitoring 02/03/2023 11:02 AM EST Health Maintenance Due Date Last Done Comments [...] Not on filedocumented as of this encounter Visit Diagnoses Diagnosis 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 No Code Status History Code Status Date Activated Date Inactivated Comments Full Code 06/13/2015 10:30 AM 06/15/2015 6:35 PM This order reflects the patients wishes and were consensually agreed upon. Question Answer Comments Discussion of Advance Directives occurred with: Not Discussed Does the patient have a Living Will? No Does the patient have Health Care Power of Gimp Tacker? No Care Teams Inspector Canned Food Reconditioning Relationship Specialty Start Date End Date Laurie Paiz MD [address] [place] [address] PCP - General Family Medicine 01/14/23 documented as of this encounter
--- OUTSIDE RECORDS SUMMARY | 2023-03-30 03:39 | External Medical Summary ---
Author Name Unknown Address Unknown Organization [facility] [address] [facility] [address] Laboratory Report Ordering Provider Test Date Status ZAID PETERS 01/20/2023 14:21:03 Final Observation Date Value Abnormality Reference (Units ) Status Hep C Ab 01/20/2023 14:21:03 Negative Negative Final Further HCV quantitative raghavendra ting not performed per protocol. Performing Location [facility] - [address] [place] [address]
--- OUTSIDE RECORDS SUMMARY | 2023-03-30 03:39 | External Medical Summary | Summary of Care ---
Author Name Unknown Organization [facility] Address [address] [place] [address] Phone [phone] Care Team Providers Care Certified Court Interpreter Name Role Phone Unavailable Primary Care Provider Unavailabl e Reason for Visit * Reason Onset Date Comments Hospital Follow-Up 01/10/2023 Pls call back re: Naltrexone Encounter Details Date Type Department Care Team (Late st Contact Info) Description 01/10/2023 Telephone [facility] [address] [place] [address] Laurie Paiz MD [address] [place] [address] Hospital Follow-Up (Pls call back [...] EST Roseanne transferred to Brenda in the [place] office * Telephone Encounter - Brenda Calzada MED ASSIST - 01/10/2023 2:03 PM EST Tried to call Roseanne. No answer. Left message to call back. Per Dr. Paiz she would prescribe naltrexone if assessed and needed. Please advise. * Telephone Encounter - Stacey Babcock OSA - 01/10/2023 1:44 PM EST Roseanne w/ Cristian calling to schedule hospital f/u. Pt will be d/c from [facility] on 01/12. Appt scheduled 01/20 w/ Dr. Paiz, as that was the soonest available appt. Roseanne also wanted to know if Dr. Paiz would be able to prescribe Naltrexone for the pt once he's discharged. Spoke w/ nurse in the office, who will discuss w/ Dr. Paiz and reach out to Roseanne.Pls call her at [phone]. No further questions/ concerns at this time. documented in this encounter Plan of Treatment Upcoming Encounters Date Type Department Care Team (Late st Contact Info) Description 01/20/2023 1:20 PM EST Office Visit [facility] [address] [place] [address] Laurie Paiz MD [address] [place] [address] Health Maintenance Due Date Last [...] the patient have Health Care Power of Consumer Loan Officer? No Code Status History Code Status Date Activated Date Inactivated Comments Full Code 06/13/2015 10:30 AM 06/15/2015 6:35 PM This order reflects the patients wishes and were consensually agreed upon. Question Answer Comments Discussion of Advance Directives occurred with: Not Discussed Does the patient have a Living Will? No Does the patient have Health Care Power of Consumer Loan Officer? No
--- OUTSIDE RECORDS SUMMARY | 2023-03-30 03:39 | External Medical Summary ---
Author Name Unknown Address Unknown Organization K01[facility] [place] [address] [facility] [address] Laboratory Report Ordering Provider Test Date Status ZAID PETERS 02/03/2023 11:02:35 Final Observation Date Value Abnormality Reference (Units ) Status BUN 02/03/2023 11:02:35 11 6-20 (mg/dL) Final Creatinine 02/03/2023 11:02:35 1.2 0.6-1.2 (mg/dL) Final Glomerular filtration rate/1.73 sq M.predicted [Volume Rate/Area] in Serum, Plasma or Blood by Creatinine-based formula (CKD-EPI) 02/03/2023 11:02:35 87 >=60 (mL/min) Final eGFR is calculated based on the CKD-EPI 2020 equation SODIUM 02/03/2023 11:02:35 140 135-146 (m mol/L) Final Potassium 02/03/2023 11:02:35 4.0 3.5-5.1 (m mol/L) Final Cl 02/03/2023 11:02:35 102 98-107 (mm ol/L) Final CO2 02/03/2023 11:02:35 26 22-32 (mmo l/L) Final Anion gap 02/03/2023 11:02:35 12 7-15 (mmol /L) Final Glucose 02/03/2023 11:02:35 88 70-120 (mg /dL) Final Albumin 02/03/2023 11:02:35 4.9 3.8-5.0 (g /dL) Final AST (Aspartate aminotransferase) 02/03/2023 11:02:35 22 10-50 (U/L) Final Alk Phos 02/03/2023 11:02:35 58 35-130 (U/ L) Final Bilirubin, Total 02/03/2023 11:02:35 1.2 <=1 .2 (mg/dL) Final Calcium 02/03/2023 11:02:35 9.9 8.4-10.2 ( mg/dL) Final Protein 02/03/2023 11:02:35 7.4 6.0-8.3 (g /dL) Final ALT (Alanine aminotransferase) 02/03/2023 11:02:35 19 10-50 (U/L) Final Performing Location [facility] [place] [facility] [address] [facility] [address]
--- OUTSIDE RECORDS SUMMARY | 2023-03-30 03:39 | External Medical Summary ---
Author Name Unknown Address Unknown Organization K1G:[facility] - [address] [place] [id number] Laboratory Report Ordering Provider Test Date Status JUAN CARLOS HARPER 01/08/2023 15:08:57 Final Observation Date Value Abnormality Reference (Units ) Status Ethanol 01/08/2023 15:08:57 69.0 Above high normal Ne gative (mg/dL) Final Performing Location [facility] - [address] [facility] [id number]
--- OUTSIDE RECORDS SUMMARY | 2023-03-30 03:39 | External Medical Summary | Summary of Care ---
Author Name Unknown Organization [facility] Address [address] [place] [address] Phone [phone] Care Team Providers Care Pottery Striper Name Role Phone Unavailable Primary Care Provider Unavailabl e Reason for Visit * Reason Onset Date Comments Hospital Follow-Up 01/10/2023 Pls call back re: Naltrexone Encounter Details Date Type Department Care Team (Late st Contact Info) Description 01/10/2023 Telephone [facility] [address] [place] [address] Laurie Paiz MD [address] [place] [address] Hospital Follow-Up (Pls call back [...] encounter Miscellaneous Notes * Telephone Encounter - Ana Saenz LPN - 01/10/2023 2:11 PM EST Roseanne transferred to Brenda in the [place] office * Telephone Encounter - Brenda Calzada MED ASSIST - 01/10/2023 2:03 PM EST Tried to call Roseanne. No answer. Left message to call back. Per Dr. Paiz she would prescribe naltrexone if assessed and needed. Please advise. * Telephone Encounter - Stacey Babcock OSA - 01/10/2023 1:44 PM EST Roseanne w/ Cristian calling to schedule hospital f/u. Pt will be d/c from [facility] on 01/12. Appt scheduled 01/20 w/ Dr. Paiz, as that was the soonest available appt. Roseanne also wanted to know if Dr. Paiz would be able to prescribe Naltrexone for the pt once he's discharged. Spoke w/ nurse in the office, who will discuss w/ Dr. Paiz and reach out to Roseanne.Pls call her at [phone]. No further questions/ concerns at this time. documented in this encounter Plan of Treatment Upcoming Encounters Date Type Department Care Team (Late st Contact Info) Description 01/20/2023 1:20 PM EST Office Visit [facility] [address] [place] [address] Laurie Paiz MD [address] [place] [address] Health Maintenance Due Date Last [...] the patient have Health Care Power of Aging Room Operator? No Code Status History Code Status Date Activated Date Inactivated Comments Full Code 06/13/2015 10:30 AM 06/15/2015 6:35 PM This order reflects the patients wishes and were consensually agreed upon. Question Answer Comments Discussion of Advance Directives occurred with: Not Discussed Does the patient have a Living Will? No Does the patient have Health Care Power of Aging Room Operator? No
--- OUTSIDE RECORDS SUMMARY | 2023-03-30 03:39 | External Medical Summary ---
Author Name Unknown Address Unknown Organization [id number]:LABORATORY [facility] - [address] [place] [address] Laboratory Report Ordering Provider Test Date Status ANGELINA ALBERTO 01/10/2023 13:07:00 Final Observation Date Value Abnormality Reference (Units ) Status Albumin 01/10/2023 13:07:00 4.4 3.8-5.0 (g/dL) Final AST (Aspartate aminotransferase) 01/10/2023 13:07:00 72 Above high normal 10-50 (U/L) Final Result may be falsely elevat ed due to hemolysis. Alk Phos 01/10/2023 13:07:00 58 35-130 (U/ L) Final ALT (Alanine aminotransferase) 01/10/2023 13:07:00 96 Above high normal 10-50 (U/L) Final Bilirubin, Total 01/10/2023 13:07:00 1.4 Above high no rmal <=1.2 (mg/dL) Final Bilirubin, Direct 01/10/2023 13:07:00 0.4 Above high n ormal 0.0-0.3 (mg/dL) Final Protein 01/10/2023 13:07:00 7.3 6.0-8.3 (g /dL) Final Performing Location LABORATORY [facility] - [address] [place] [address]
--- OUTSIDE RECORDS SUMMARY | 2023-03-30 03:39 | External Medical Summary ---
Author Name Unknown Address Unknown Organization [id number]:LABORATORY [facility] - [address] [place] [id number] Laboratory Report Ordering Provider Test Date Status JUAN BENJAMIN 01/08/2023 02:33:17 Fin al Observation Date Value Abnormality Reference (Units ) Status Lipase 01/08/2023 02:33:17 29 13-60 (U/L ) Final Performing Location LABORATORY [facility] - [address] [place] [id number]
--- OUTSIDE RECORDS SUMMARY | 2023-03-30 03:39 | External Medical Summary | Summary of Care ---
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); Alcohol use disorder, severe, dependence (HCC); Alcohol-induced mood disorder (HCC); Therapeutic drug monitoring; Screening for HIV without presence of risk factors; Encounter for hepatitis C screening test for low risk patient Allergies Active Allergy Reactions Criticality Noted Date Comments Cephalexin High 05/17/2022 Other Reaction(s): Hives Sulfamethoxazole High 05/17/2022 Other Reaction(s): Hives Trimethoprim High 05/17/2022 Other Reaction(s): Hives documented as of this encounter (statuses as of 01/20/2023) Medications Medication Sig Dispensed Refills Start Date End Date Status Proventil HFA 108 (90 Base) MCG/ACT Inhalation Aerosol SolutionIndicatio ns:Bronchitis due to 2019 novel coronavirus Inhale 2 Puffs by mouth every 4 hours as needed for Wheezing. 8 g 0 12/06/2020 Active Additional Information Patient not taking.Reported on 01/09/2023 hydrOXYzine HCl 10 MG Oral Tablet (Atarax)Indicatio ns:Anxiety Take 1 Tablet by mouth every 6 hours as needed for Anxiety. 40 Tablet 2 01/20/2023 Active Mirtazapine 7.5 MG Oral Tablet (Remeron) Take 1 Tablet by mouth every night at bedtime. 30 Tablet 0 01/12/2023 3 Discontinue d(Refill) Naltrexone HCl 50 MG Oral Tablet (Revia) Take 1 Tablet by mouth in the morning. 30 Tablet 0 01/12/2023 3 Discontinue d(Refill) documented as of this encounter (statuses as of 01/20/2023) Active Problems Problem Noted Date Diagnosed Date Transaminitis 01/20/2023 Medical marijuana use 01/20/2023 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 01/10/2023 Alcohol use disorder, severe, dependence 023 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 Concussion 06/18/2015 documented as of this encounter (statuses as of 01/20/2023) Resolved Problems Problem Noted Date Diagnosed Date Resolved Date Hypertension 01/10/2023 01/20/2023 documented as of this encounter (statuses as of 01/20/2023) Social History Tobacco Use Types Packs/Day Years [...] Description 02/03/2023 11:00 AM EST Laboratory [facility] [place] [address], [place] [phone] [facility] [address], [place] [id number] 02/18/2023 11:00 AM EST Laboratory [facility] [place] [address] [place] [address] [facility] [address], [place] [id number] 04/22/2023 11:00 AM EST Office Visit Family [facility] [place] [address] [place] [address] Laurie Paiz MD [address] [place] [address] Pending Results Name Type Priority Associated Diagnoses Date /Time COMPREHENSIVE METABOLIC PANEL Lab Routine 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) Alcohol use disorder, severe, dependence (HCC) Alcohol-induced mood disorder (HCC) Therapeutic drug monitoring 01/20/2023 2:21 PM EST HIV ANTIGEN & ANTIBODY SCREEN W/ CONFIRMATION Lab Routine Screening for HIV without presence of risk factors 01/20/2023 2:21 PM EST HEPATITIS C ANTIBODY SCREEN WITH PROGRESSION TO HEPATITIS C RNA QUANTITATIVE Lab Routine Encounter for hepatitis C screening test for low risk patient 01/20/2023 2:21 PM EST HEPATITIS C ANTIBODY Lab Routine Encounter for hepatitis C screening test for low risk patient 01/20/2023 2:21 PM EST HEPATITIS C RNA ADD ON Lab Routine Encounter for hepatitis C screening test for low risk patient 01/20/2023 2:21 PM EST Health Maintenance Due Date Last Done Comments Hepatitis B (1 of 3 - 3-dose series) 1995 COVID-19 Vaccine (#1) 01/07/1996 Pneumococcal Vaccine: Pediat rics (0 to 5 Years) and At-Risk Patients (6 to 64 Years) (1 - PCV) 07/06/2001 Depression Screening 2007 HIV Screening 07/06/2010 Hepatitis [...] drug monitoring Encounter for therapeutic drug monitoring Screening for HIV without presence of risk factors Special screening examination for other specified viral diseases Encounter for hepatitis C screening test for low risk patient documented in this encounter Advance Directives Latest [...] the patient have Health Care Power of Carrier Operator? No Code Status History Code Status Date Activated Date Inactivated Comments Full Code 06/13/2015 10:30 AM 06/15/2015 6:35 PM This order reflects the patients wishes and were consensually agreed upon. Question Answer Comments Discussion of Advance Directives occurred with: Not Discussed Does the patient have a Living Will? No Does the patient have Health Care Power of Carrier Operator? No Care Teams Manager Of Internal Relationship Specialty Start Date End Date Laurie Paiz MD [address] [place] [address] PCP - General Family Medicine 01/14/23 documented as of this encounter
--- OUTSIDE RECORDS SUMMARY | 2023-03-30 03:39 | External Medical Summary ---
Author Name Unknown Address Unknown Organization [id number]:LABORATORY [facility] - [address] [facility] [address] Laboratory Report Ordering Provider Test Date Status ZAID PETERS 01/20/2023 14:21:03 Final Observation Date Value Abnormality Reference (Units ) Status BUN 01/20/2023 14:21:03 11 6-20 (mg/dL) Final Creatinine 01/20/2023 14:21:03 1.1 0.6-1.2 (mg/dL) Final Glomerular filtration rate/1.73 sq M.predicted [Volume Rate/Area] in Serum, Plasma or Blood by Creatinine-based formula (CKD-EPI) 01/20/2023 14:21:03 >90 >=60 (mL/min) Final eGFR is calculated based on the CKD-EPI 2020 equation SODIUM 01/20/2023 14:21:03 138 135-146 (m mol/L) Final Potassium 01/20/2023 14:21:03 5.0 3.5-5.1 (m mol/L) Final Cl 01/20/2023 14:21:03 101 98-107 (mm ol/L) Final CO2 01/20/2023 14:21:03 26 22-32 (mmo l/L) Final Anion gap 01/20/2023 14:21:03 11 7-15 (mmol /L) Final Glucose 01/20/2023 14:21:03 86 70-120 (mg /dL) Final Albumin 01/20/2023 14:21:03 4.9 3.8-5.0 (g /dL) Final AST (Aspartate aminotransferase) 01/20/2023 14:21:03 25 10-50 (U/L) Fin al Alk Phos 01/20/2023 14:21:03 60 35-130 (U/ L) Final Bilirubin, Total 01/20/2023 14:21:03 0.4 <=1 .2 (mg/dL) Final Calcium 01/20/2023 14:21:03 10.5 Above high normal 8. 4-10.2 (mg/dL) Final Protein 01/20/2023 14:21:03 7.6 6.0-8.3 (g /dL) Final ALT (Alanine aminotransferase) 01/20/2023 14:21:03 36 10-50 (U/L) Harinder humphrey Performing Location LABORATORY [facility] - [address] [facility] [address]
--- OUTSIDE RECORDS SUMMARY | 2023-03-30 03:39 | External Medical Summary ---
Author Name Unknown Address Unknown Organization K1G:LABORATORY [facility] - [address] [place] [id number] Laboratory Report Ordering Provider Test Date Status JUAN BENJAMIN 01/08/2023 02:33:17 Fin al Observation Date Value Abnormality Reference (Units ) Status WBC, Total 01/08/2023 02:33:17 4.23 4.00-10.8 0 (K/uL) Final RBC 01/08/2023 02:33:17 5.06 4.50-5.25 (M/uL) Final Hemoglobin 01/08/2023 02:33:17 16.4 14.0-16.8 (g/dL) Final HCT 01/08/2023 02:33:17 47.5 40.0-48.4 (%) Final MCV 01/08/2023 02:33:17 93.9 82.0-99.5 (fL) Final MCH 01/08/2023 02:33:17 32.4 27.0-34.0 (pg) Final MCHC 01/08/2023 02:33:17 34.5 32.0-36.0 (g/dL) Final RDW 01/08/2023 02:33:17 13.5 11.5-15.5 (%) Final Platelets 01/08/2023 02:33:17 124 Below low normal 140 -400 (K/uL) Final MPV 01/08/2023 02:33:17 9.0 6.6-11.1 ( fL) Final Performing Location [facility] [address] [facility] [phone]
--- OUTSIDE RECORDS SUMMARY | 2023-03-30 03:39 | External Medical Summary ---
Author Name Unknown Address Unknown Organization K01:LABORATORY [address] [facility] [address] Laboratory Report Ordering Provider Test Date Status ZAID PETERS 01/20/2023 14:21:03 Final Observation Date Value Abnormality Reference (Units ) Status HIV 1+2 Ab+HIV1 p24 Ag [Presence] in Serum or Plasma by Immunoassay 01/20/2023 14:21:03 Negative Negative Final Negative HIV-1/2 antigen and antibody screening tset results usually indicate the absence of HIV-1 and HIV-2 infection. However, such negative results do not rule-out acute HIV infection. If acute HIV-1 infection is highly suspected, it is recommended that a specimen be submitted for detection of HIV-1 RNA. Performing Location LABORATORY [facility] - [facility] [address] [facility] [address]
--- OUTSIDE RECORDS SUMMARY | 2023-03-30 03:39 | External Medical Summary ---
Author Name Unknown Address Unknown Organization K01:[facility] [address] [facility] [address] Laboratory Report Ordering Provider Test Date Status CASSIDYJUAN TREVIÑOKIRIT 01/08/2023 02:34:25 Fin al Cutoff Concentrations:
D rug Level
Alpha-Hydroxyalprazolam 10 ng/mL
7-Aminoclonazepam 20 ng/mL
Nordiazepam 20 ng/mL
Oxazepam 20 ng/mL
Temazepam 20 ng/mL
Lorazepam 10 ng/mL

This test was developed and its performance characteristics determined by [employer]. It has not been cleared or approved by the [place] Food and Drug Administration. Observation Date Value Abnormality Reference (Units) Status METHODOLOGY 01/08/2023 02:34:25 LC-MS/MS Final Alpha hydroxyalprazolam cutoff [Mass/volume] in Urine for Confirmatory method 01/08/2023 02:34:25 Negative Negative Final 7-Aminoclonazepam [Mass/volume] in Urine by Confirmatory method 01/08/2023 02:34:25 Negative Negative Final Nordiazepam cutoff [Mass/volume] in Urine for Confirmatory method 01/08/2023 02:34:25 Negative Negative Final Oxazepam cutoff [Mass/volume] in Urine for Confirmatory method 01/08/2023 02:34:25 Negative Negative Final Temazepam cutoff [Mass/volume] in Urine for Confirmatory method 01/08/2023 02:34:25 Negative Negative Final LORazepam cutoff [Mass/volume] in Urine for Confirmatory method 01/08/2023 02:34:25 640 Above high normal Negative (ng/mL) Final Performing Location [facility] [place] [facility] [address] [facility] [address]
--- OUTSIDE RECORDS SUMMARY | 2023-03-30 03:39 | External Medical Summary | Summary of Care ---
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 called with update: 14 facilities were faxed. Pt friend called and left phone number for him. Bennett Sellers [phone] * ED Database Programmer Analyst Note - Mallorie Gaffney RN - 01/08/2023 10:00 PM EST Pt is asleep, even and unlabored respirations, no tremors. * ED Database Programmer Analyst Note - Mallorie Gaffney RN - 01/08/2023 6:00 PM EST Pt is asleep, even and unlabored respirations. * ED Database Programmer Analyst Note - Mallorie Gaffney RN - 01/08/2023 5:00 PM EST Pt is asleep, even and unlabored breathing. * ED Database Programmer Analyst Note - Mallorie Gaffney RN - 01/08/2023 2:16 PM EST Pt made this RN aware that taking the phone call was a mistake and he needs to calm down. This RN explained that pt was just given medication and he does not need to talk to anyone he does not want to talk to. Provide, Dr. Moore made aware of pt's status. Per Dr. Moore, wait for a bit and reevaluate. * ED Database Programmer Analyst Note - Mallorie Gaffney RN - 01/08/2023 2:07 PM EST Pt's brother Frederick phone # [phone] Patient would like this on file for use if he needs it or medical staff need it. * ED Database Programmer Analyst Note - Karen Merrill RN - 01/08/2023 1:59 PM EST Patient's brother Frederick called and is speaking with the patient. * ED Database Programmer Analyst Note - Venus Faith TECH - 01/08/2023 1:11 PM EST Straight stick for lab draw at left forearm x1, site prepped with alcohol prep and rubbing vigorously for 15 seconds; successful attempt; Patient denies any skin reactions to tape; tourniquet removed; site dressed with 2x2 and tape; specimens labeled in presence of Patient; Patient denies any further needs or wants at this time; Patient made aware that it will take approximately 45 minutes for blood results. Whiteboard updated with estimated lab times. * ED Database Programmer Analyst Note - Karen Merrill RN - 01/08/2023 9:55 AM EST [facility] crisis called requesting labs and dr nowak be faxed to them. * ED Database Programmer Analyst Note - Camryn Hicks RN - 01/08/2023 9:37 AM EST Patient refusing to take po vitamins at this time. Does not want any other medications at this time. Provider aware. * ED Database Programmer Analyst Note - Karen Merrill RN - 01/08/2023 8:27 AM EST Patient eating breakfast tray. * ED Database Programmer Analyst Note - Karen Merrill RN - 01/08/2023 8:12 AM EST Physician at bedside talking with the patient about medications. Patient is now willing to take medications to avoid tremors. Patient ambulated to the bathroom with staff member present. * Progress Notes - Non-Billable - Scott Pelaez DO - 01/08/2023 7:02 AM EST Vital Signs | ED Orders | ED Results ED Course as of 01/09/23 1517 Wed Jan 08, 2023 0257 CBC with WBC Differential(!) NO leukocytosis or anemia present when compared to previous blood draw. Mild thrombocytopenia present. This is a new finding when compared to 2 years ago. [CB] 0259 Toxicology Urine Screen Cup with Confirmation ([facility] and [facility] Only)(!) Positive for benzodiazepines. [CB] 0303 Salicylates Level(!) None detected [CB] 0303 Acetaminophen Level(!) None detected [CB] 0303 Lipase normal [CB] 0303 Magnesium Normal [CB] 0303 Ethanol, Medical(!) Elevated consistent with acute intoxication [CB] 0304 Comprehensive Metabolic Panel(!) Normal renal function. No acute electrolyte abnormality present. Elevated AST, ALT. Patient reportshistory of prior elevation liver function tests. No recent blood work to know patient's baseline. [CB] 0629 Patient is refusing his phenobarbital. [CB] 0647 Unable to clear patient for psychiatric evaluation due to acute alcohol intoxication. When sober, will consult psychiatry and crisis if needed to complete 302. Report given to DR Pelaez. [CB] 2264 I accepted the patient at this time in sign out from Dr. Sterling. Patient is a 27 y/o male presenting to the ED for psych evaluation. Has h/o ETOH use and had SI overnight and father found him loading a semi-automatic rifle. Father tackled his son and he was brought in for evaluation. ETOH. Phenobarbitol protocol ordered, however, patient has declined. Patient has elevated LFTs, questionably from ETOH use, but patient reportedly contributes to known fatty liver. Pending sobriety and psych evaluation. Parent's parents willing to petition 302. Patient reports 302 petitioned on him before. [RP] 1049 Notified by sitter patient is having some central chest pain. Repeat EKG per my review and interpretation-rate 89, sinus rhythm, axis normal, QTC 467, QRS 106. No ST/T-wave abnormality suspicious for acute ischemia. Patient did have negative troponin from overnight. Have suspicion for withdrawal induced pain. [RP] 1119 Patient re-evaluated, resting comfortably in bed in NAD [RP] 1408 Ethanol, Medical(!): 111.0 [RP] Sendy Jan 09, 2023 0305 Patient has been evaluated by psychiatry. He is minimizing his symptoms. Psychiatry recommendsadmission. Since he is not agreeable to signing a 201, Dr Robertson recommends upholding the 302. [CB] 1304 Dr. Thanh Castro accepts the patient in transfer. [LH] ED Course User Index [CB] Sejal Milligan DO [LH] Jazmin Easley DO [RP] Scott Pelaez DO 302 upheld as patient has been uncooperative and not open to having discussion. Story is concerningfor risk of harm to self, and potentially harm to others. I discussed the patient with Dr. Sterling in signout. We discussed the patients presentation, ED course, and disposition. Pending formal psych eval and bed search. Placed on ED observation Clinical Impressions Chest pain Acute alcoholic intoxication without complication (HCC) Suicidal ideations Disposition ED observation Scott Pelaez DO * ED Database Programmer Analyst Note - Aly, Gerilyn D, RN - 01/08/2023 6:30 AM EST Patient requesting nicotine patch. aware * ED Database Programmer Analyst Note - Phan Lu RN - 01/08/2023 6:20 AM EST Patient refusing phenobarbital at this time. Patient sts "I'll be fine". I attempted to explain thebenefits of the medication but patient continues to refuse. Dr Sterling aware. documented in this encounter Plan of Treatment Pending Results Name Type Priority Associated Diagnoses Date /Time BENZODIAZEPINES, URINE CONFIRMATION Lab STAT 01/08/2023 2:34 AM EST Scheduled Orders Name Type Priority Associated Diagnoses Orde r Schedule EKG EKG STAT Chest pain Perform Now for 1 Occurrences starting 01/08/2023 until 01/08/2023 BENZODIAZEPINES, URINE CONFIRMATION Lab STAT One Time for 1 Occurrences starting 01/08/2023 until 01/08/2023 Health Maintenance Due Date Last Done Comments [...] Procedure Name Priority Date/Time Associated Diagnosis Comments ETHANOL, MEDICAL Routine 01/08/2023 3:08 PM EST ETHANOL, MEDICAL STAT 01/08/2023 1:11 PM EST XR CHEST 1 VIEW STAT 01/08/2023 3:09 AM EST TOXICOLOGY URINE SCREEN CUP W/ CONFIRMATION ([facility] AND [facility] ONLY) STAT 01/08/2023 2:34 AM EST INFLUENZA A/B RSV SARS-COV2,PCR STAT 01/08/2023 2:34 AM EST DIFFERENTIAL, AUTOMATED STAT 01/08/2023 2:33 AM EST COMPREHENSIVE METABOLIC PANEL STAT 01/08/2023 2:33 AM EST CBC STAT 01/08/2023 2:33 AM EST LIPASE Add-on 01/08/2023 2:33 AM EST ETHANOL, MEDICAL STAT 01/08/2023 2:33 AM EST CBC STAT 01/08/2023 2:33 AM EST MAGNESIUM STAT 01/08/2023 2:33 AM EST ACETAMINOPHEN LEVEL Add-on 01/08/2023 2 :33 AM EST SALICYLATES LEVEL Add-on 01/08/2023 2:3 3 AM EST EXTRA GREEN TOP WITH GEL Routine 01/08/2023 2:32 AM EST EXTRA LIGHT BLUE TOP Routine 01/08/2023 2:32 AM EST EXTRA GOLD TOP Routine 01/08/2023 2:32 AM EST EXTRA TUBES Routine 01/08/2023 2:32 AM EST TROPONIN T, HIGH SENSITIVITY Add-on 01/08/2023 2:32 AM EST documented in this encounter Results * (ABNORMAL) ETHANOL, MEDICAL (01/08/2023 3:08 PM EST) Ethanol, Medical 69.0(H) Negative mg/dL 01/08/2023 3:25 PM EST LABORATORY [facility] Blood Venous blood specimen / Unknown Venipuncture / Unknown 01/08/2023 3:08 PM EST 01/08/2023 3:12 PM EST Sayra Winchester PA-C LAB BLOOD ORDERABL ES Performing Organization Address [facility] Co de Phone Number LABORATORY [address] [address] * (ABNORMAL) ETHANOL, MEDICAL (01/08/2023 1:11 PM EST) Ethanol, Medical 111.0(H) Negative mg/dL 01/08/2023 1:36 PM EST LABORATORY [facility] Blood Venous blood specimen / Unknown Venipuncture / Unknown 01/08/2023 1:11 PM EST 01/08/2023 1:21 PM EST Scott Pelaez DO LAB BLOOD ORDERAB LES Performing Organization Address [facility] Co de Phone Number LABORATORY [address] [address] * XR CHEST 1 VIEW (01/08/2023 3:09 AM EST) Anatomical Region Laterality Modality Chest Computed Radiogr aphy 01/08/2023 3:08 AM EST Impressions 01/08/2023 4:56 AM EST IMPRESSION: No active disease in the chest. THIS DOCUMENT HAS BEEN ELECTRONICALLY SIGNED BY BARTOLO RAMÍREZ MD Narrative 01/08/2023 4:56 AM EST PROCEDURE INFORMATION: Exam: XR Chest Exam date and time: 01/08/2023 3:08 AM Age: 27 years old Clinical indication: Pain; Chest pressure; Additional info: Chest pain TECHNIQUE: Imaging protocol: Radiologic exam of the chest. Views: 1 view. COMPARISON: DX XR CHEST 1 VIEW 12/08/2020 12:26 PM FINDINGS: Lungs: Unremarkable. No consolidation. Pleural spaces: Unremarkable. No pleural effusion. No pneumothorax. Heart/Mediastinum: Unremarkable. No cardiomegaly. Bones/joints: Unremarkable. Soft tissues: Unremarkable. Procedure Note Bartolo Ramírez MD - 01/08/2023 PROCEDURE INFORMATION: Exam: XR Chest Exam date and time: 01/08/2023 3:08 AM Age: 27 years old Clinical indication: Pain; Chest pressure; Additional info: Chest pain TECHNIQUE: Imaging protocol: Radiologic exam of the chest. Views: 1 view. COMPARISON: DX XR CHEST 1 VIEW 12/08/2020 12:26 PM FINDINGS: Lungs: Unremarkable. No consolidation. Pleural spaces: Unremarkable. No pleural effusion. No pneumothorax. Heart/Mediastinum: Unremarkable. No cardiomegaly. Bones/joints: Unremarkable. Soft tissues: Unremarkable. IMPRESSION IMPRESSION: No active disease in the chest. THIS DOCUMENT HAS BEEN ELECTRONICALLY SIGNED BY BARTOLO RAMÍREZ MD Sejal Sterling DO RADIOLOG Y (RAD GENERAL) * INFLUENZA A/B RSV SARS-COV2,PCR (01/08/2023 2:34 AM EST) SARS-CoV-2 (COVID-19) Result Negative Negative 01/08/2023 4:01 AM EST LABORATORY [facility] Comment: No SARS-CoV2 Coronavirus RNA detected by PCR (amplified probe). This express test was developed and its performance characteristics determined by [facility]. It has not been cleared or approved [...] (RT-PCR) test, or a Centers for Disease Control- acceptable equivalent. The test is performed in a high complexity Clinical Laboratory Improvement Amendments-(CLIA) certified laboratory. The test is acceptable for SARS-CoV-2 diagnosis, surveillance, and travel within the [place] and to most countries. Please check with local testing authorities about requirements before travel. The validation of bronchial specimens, tracheal aspirates, and sputum for this assay was developed and performance characteristics determined by [facility]. The validation of alternate specimen types has not been cleared or approved by the U.S. Food and Drug Administration (FDA). It has been determined that such clearance is not necessary. Influenza A PCR Result Negative Negative 01/08/2023 4:01 AM EST LABORATORY [facility] Comment:No Influenza A RNA d etected by PCR (amplified probe) Influenza B PCR Result Negative Negative 01/08/2023 4:01 AM EST LAB[facility]ORY [facility] Comment:No Influenza B RNA d etected by PCR (amplified probe) RSV PCR Result Negative Negative 01/08/2023 4:01 AM EST LAB[facility]ATORY [facility] Comment:No Respiratory Syncy tial Virus RNA detected by PCR (amplified probe) Upper Respiratory Mid-turbinate nasal swab / Unknown Non-blood Collection / Unknown 01/08/2023 2:34 AM EST 01/08/2023 2:44 AM EST Sejal Sterling DO LAB MICR O - GENERAL ORDERABLES LABORATORY [address] [address] * (ABNORMAL) TOXICOLOGY URINE SCREEN CUP W/ CONFIRMATION ([facility] ONLY) (01/08/2023 2:34 AM EST) Pathologist [facility] Amphetamine Negative Negative 01/08/2023 2:58 AM EST LABORATORY [facility] Barbiturates Negative Negative 01/08/2023 2:58 AM EST LAB[facility]ATORY [facility] Benzodiazepines Positive(A) Negative 01/09/20 2:58 AM EST LAB[facility]ATORY [facility] Cannabinoids Negative Negative 01/08/2023 2:58 AM EST LAB[facility]ORY [facility] Cocaine Metabolite Negative Negative 2022 2:58 AM EST LAB[facility]ATORY [facility] Morphine / Codeine Negative Negative 2022 2:58 AM EST LAB[facility]ATORY [facility] Methadone Metabolite Negative Negative 01/08/2023 2:58 AM EST LABORATORY [facility] Oxycodone / Oxymorphone Negative Negative 01/08/2023 2:58 AM EST LAB[facility]ORY [facility] Urine Urine specimen obtained by clean catch procedure / Unknown Non-blood Collection / Unknown 01/08/2023 2:34 AM EST 01/08/2023 2:46 AM EST Narrative LAB[facility]ATORY [facility] - 01/08/2023 2:58 AM EST Cutoff Concentrations: Drug Level Amphetamines 500 ng/mL Barbiturates 300 ng/mL Benzodiazepines 300 ng/mL Cannabinoids 50 ng/mL Cocaine Metabolite 300 ng/mL Morphine / Codeine 300 ng/mL Methadone 300 ng/mL Oxycodone 100 ng/mL Screening results are presumptive and can only be used for medical purposes. Positive screening results are reflexed to confirmatory testing. Sejal Harris [employer] DO LAB URIN E ORDERABLES Performing Organization Address City/[facility]/ZIP Co de Phone Number LABORATORY [address] [address] * (ABNORMAL) SALICYLATES LEVEL (01/08/2023 2:33 AM EST) Salicylates Level <0.3(L) 5.0 - 30.0 mg/dL 01/08/2023 3:02 AM EST LAB[facility]ORY [facility] Blood Venous blood specimen / Unknown Venipuncture / Unknown 01/08/2023 2:33 AM EST 01/08/2023 2:40 AM EST Sejal Braunus orangutrans DO LAB BLOO D ORDERABLES Performing Organization Address City/[facility]/ZIP Co de Phone Number LABORATORY [address] [address] * (ABNORMAL) ACETAMINOPHEN LEVEL (01/08/2023 2:33 AM EST) Acetaminophen Level <5.0(L) 10.0 - 30.0 ug/mL 01/08/2023 3:02 AM EST LAB[facility]ATORY [facility] Blood Venous blood specimen / Unknown Venipuncture / Unknown 01/08/2023 2:33 AM EST 01/08/2023 2:40 AM EST Sejal Jaffe SirionLabssius Bolick DO LAB BLOO D ORDERABLES LABORATORY [facility] [address] [place] [address] * LIPASE (01/08/2023 2:33 AM EST) [facility] Lipase 29 13 - 60 U/L 01/08/2023 3:02 AM EST LAB[facility]ATORY [facility] Blood Venous blood specimen / Unknown Venipuncture / Unknown 01/08/2023 2:33 AM EST 01/08/2023 2:40 AM EST [facility] LAB BLOO D ORDERABLES Performing Organization Address [facility]/ZIP Co de Phone Number LABORATORY [address] [address] * (ABNORMAL) DIFFERENTIAL, AUTOMATED (01/08/2023 2:33 AM EST) [facility] WBC 4.23 4.00 - 10.80 K/uL 01/08/2023 2:45 AM EST LABORATORY [facility] Neutrophils % 66.2 40.0 - 75.0 % 01/08/2023 2:45 AM EST LABORATORY [facility] Lymphocytes % 20.1 18.0 - 42.0 % 01/08/2023 2:45 AM EST LABORATORY [facility] Monocytes % 10.2 1.0 - 11.0 % 01/08/2023 2:45 AM EST LABORATORY [facility] Eosinophils % 3.3 0.0 - 6.0 % 01/08/2023 2:45 AM EST LABORATORY [facility] Basophils % 0.2 0.0 - 2.0 % 01/08/2023 2:45 AM EST LABORATORY [facility] Absolute Neutrophils 2.80 1.80 - 7.70 K/uL 01/08/2023 2:45 AM EST LABORATORY [facility] Absolute Lymphocytes 0.85(L) 1.00 - 4.80 K/ul 01/08/2023 2:45 AM EST LABORATORY [facility] Absolute Monocytes 0.43 0.00 - 1.10 K/uL 01/08/2023 2:45 AM EST LABORATORY [facility] Absolute Eosinophils 0.14 0.00 - 0.70 K/uL 01/08/2023 2:45 AM EST LAB[facility]ORY [facility] Absolute Basophils 0.01 0.00 - 0.20 K/uL 01/08/2023 2:45 AM EST [facility] Blood Venous blood specimen / Unknown Venipuncture / Unknown 01/08/2023 2:33 AM EST 01/08/2023 2:40 AM EST Sejal Sterling DO LAB BLOO D ORDERABLES LABORATORY [place] [id number] [place] [address] * (ABNORMAL) CBC (01/08/2023 2:33 AM EST) Pathologist [facility] WBC 4.23 4.00 - 10.80 K/uL 01/08/2023 2:45 AM EST LAB[facility]ATORY [facility] RBC 5.06 4.50 - 5.25 M/uL 01/08/2023 2:45 AM EST LAB[facility] HGB 16.4 14.0 - 16.8 g/dL 01/08/2023 2:45 AM EST LAB[facility]ORY [facility] HCT 47.5 40.0 - 48.4 % 01/08/2023 2:45 AM EST LAB[facility]ORY [facility] MCV 93.9 82.0 - 99.5 fL 01/08/2023 2:45 AM EST LAB[facility]ORY [facility] MCH 32.4 27.0 - 34.0 pg 01/08/2023 2:45 AM EST LAB[facility]ORY [facility] MCHC 34.5 32.0 - 36.0 g/dL 01/08/2023 2:45 AM EST LAB[facility] RDW 13.5 11.5 - 15.5 % 01/08/2023 2:45 AM EST LAB[facility]ORY [facility] PLT 124(L) 140 - 400 K/uL 01/08/2023 2:45 AM EST LAB[facility]ORY [facility] MPV 9.0 6.6 - 11.1 fL 01/08/2023 2:45 AM EST [facility] Blood Venous blood specimen / Unknown Venipuncture / Unknown 01/08/2023 2:33 AM EST 01/08/2023 2:40 AM EST Sejal Harris Bolick DO LAB BLOO D ORDERABLES LABORATORY [address] [address] * MAGNESIUM (01/08/2023 2:33 AM EST) [facility] Magnesium 2.2 1.5 - 2.6 mg/dL 01/08/2023 3:02 AM EST [facility]ORY [facility] Blood Venous blood specimen / Unknown Venipuncture / Unknown 01/08/2023 2:33 AM EST 01/08/2023 2:40 AM EST Sejal Harris Bolick DO LAB BLOO D ORDERABLES Performing Organization Address [facility]/ZIP Co de Phone Number LABORATORY [address] [address] * (ABNORMAL) ETHANOL, MEDICAL (01/08/2023 2:33 AM EST) [facility] Ethanol, Medical 340.0(H) Negative mg/dL 01/08/2023 3:02 AM EST LAB[facility]ORY [facility] Blood Venous blood specimen / Unknown Venipuncture / Unknown 01/08/2023 2:33 AM EST 01/08/2023 2:40 AM EST Sejal Harris Bolick DO LAB BLOO D ORDERABLES Performing Organization Address City/[facility]/ZIP Co de Phone Number LABORATORY [address] [phone] * (ABNORMAL) COMPREHENSIVE METABOLIC PANEL (01/08/2023 2:33 AM EST) [facility] BUN 4(L) 6 - 20 mg/dL 01/08/2023 3:02 AM EST LAB[facility]ORY [facility] Creatinine 0.8 0.6 - 1.2 mg/dL 01/08/2023 3:02 AM EST [facility]ORY [facility] Estimated Glomerular Filtration Rate >90 >=60 mL/min 01/08/2023 3:02 AM EST [facility]ORY [facility] Comment:eGFR is calculated b ased on the CKD-EPI 2020 equation Sodium 141 135 - 146 mmol/L 01/08/2023 3:02 AM EST [facility] Potassium 3.9 3.5 - 5.1 mmol/L 01/08/2023 3:02 AM EST LABORATORY [facility] Chloride 102 98 - 107 mmol/L 01/08/2023 3:02 AM EST LABORATORY [facility] CO2 25 22 - 32 mmol/L 01/08/2023 3:02 AM EST LAB[facility]ATORY [facility] Anion Gap 14 7 - 15 mmol/L 01/08/2023 3:02 AM EST LAB[facility]ATORY [facility] Glucose 94 70 - 120 mg/dL 01/08/2023 3:02 AM EST LABORATORY [facility] Albumin 4.9 3.8 - 5.0 g/dL 01/08/2023 3:02 AM EST LABORATORY [facility] AST 190(H) 10 - 50 U/L 01/08/2023 3:02 AM EST [facility] Alkaline Phosphatase 70 35 - 130 U/L 01/08/2023 3:02 AM EST [facility] Bilirubin, Total 1.4(H) <=1.2 mg/dL 01/08/2023 3:02 AM EST [facility] Calcium 9.0 8.4 - 10.2 mg/dL 01/08/2023 3:02 AM EST LAB[facility]ATORY [facility] Protein 7.9 6.0 - 8.3 g/dL 01/08/2023 3:02 AM EST [facility] ALT 139(H) 10 - 50 U/L 01/08/2023 3:02 AM EST [facility] Blood Venous blood specimen / Unknown Venipuncture / Unknown 01/08/2023 2:33 AM EST 01/08/2023 2:40 AM EST Sejal Sterling DO LAB BLOO D ORDERABLES LABORATORY [facility] [address] [place] [address] * EXTRA GREEN TOP WITH GEL (01/08/2023 2:32 AM EST) Blood Venous blood specimen / Unknown 01/08/2023 2:32 AM EST 01/08/2023 2:41 AM EST Sejal Pompasius Bolick DO LAB BLOO D ORDERABLES Performing Organization Address [facility] Co de Phone Number LABORATORY [address] [address] * EXTRA GOLD TOP (01/08/2023 2:32 AM EST) Blood Venous blood specimen / Unknown 01/08/2023 2:32 AM EST 01/08/2023 2:41 AM EST Sejal Pompasius Bolick DO LAB BLOO D ORDERABLES Performing Organization Address [facility] de Phone Number LABORATORY [address] [phone] * EXTRA LIGHT BLUE TOP (01/08/2023 2:32 AM EST) Blood Venous blood specimen / Unknown 01/08/2023 2:32 AM EST 01/08/2023 2:41 AM EST Sejal Jaffe Brosius Bolick DO LAB BLOO D ORDERABLES Performing Organization Address [facility] de Phone Number LABORATORY [address] [phone] * TROPONIN T, HIGH SENSITIVITY (01/08/2023 2:32 AM EST) Troponin T, High Sensitivity <6 <=22 ng/L 01/08/2023 3:04 AM EST LAB[facility]ORY [facility] Blood Venous blood specimen / Unknown 01/08/2023 2:32 AM EST 01/08/2023 2:41 AM EST Sejal Jaffe Brosius Bolick DO LAB BLOO D ORDERABLES Performing Organization Address [facility] de Phone Number LABORATORY [address] [phone] documented in this encounter Visit Diagnoses Diagnosis Acute alcoholic intoxication without complication (HCC)- Primary Chest pain Chest pain, unspecified Suicidal ideations Suicidal ideation 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) documented in this encounter Administered Medications Inactive Administered Medications - up to 3 most recent administrations Medication Order MAR Action Action Date Dose Rate Site folic acid tab 1 mg 1 mg, Oral, Daily(AM), First dose on Fri01/08/23 at 0900, Until Discontinued Given 01/09/2023 9:22 AM EST 1 mg Given 01/08/2023 12:04 PM EST 1 mg ketorolac (Toradol) 15 MG/ML inj 15 mg 15 mg, IV Push, ONCE, On Fri01/08/23 at 2100, For 1 dose Given 01/08/2023 8:21 PM EST 15 mg multivitamin (Mvi) 1 Tablet 1 Tablet, Oral, DAILY NOON, First dose on Fri01/08/23 at 1200, Until Discontinued Given 01/09/2023 12:31 PM EST 1 Tablet Given 01/08/2023 12:04 PM EST 1 Tablet Nicotine (Nicoderm CQ) 21 MG/24HR patch 1 Patch 1 Patch, Transdermal, ONCE, On Fri01/08/23 at 0715, For 1 dose, Do NOT cut the patch. Remove any Nicotine patches the patient may currently be wearing prior to applying the new patch. Place on clean hairless area. Remove for patient showers. WASTE INFO: Return packaging and waste medication in zip lock bag to pharmacy - [facility] container. Patch Applied 01/08/2023 6:42 AM EST 1 Patch Arm Right Upper Nicotine (Nicoderm CQ) 21 MG/24HR patch 1 Patch 1 Patch, Transdermal, Daily(AM), First dose on Fri01/09/23 at 1000, Until Discontinued, Do NOT cut the patch. Remove any Nicotine patches the patient may currently be wearing prior to applying the new patch. Place on clean hairless area. Remove for patient showers. WASTE INFO: Return packaging and waste medication in zip lock bag to pharmacy - [facility] container. Patch Applied 01/09/2023 9:29 AM EST 1 Patch Arm Left Upper NSS infusion Intravenous, at 150 mL/hr, CONTINUOUS, Starting on Fri01/08/23 at 0345, Until Fri01/09/23 at 1508 New Bag 01/08/2023 6:25 AM EST 150 mL/hr ondansetron (Zofran) inj 4 mg 4 mg, IV Push, ONCE, On Fri01/08/23 at 1230, For 1 dose Given 01/08/2023 12:00 PM EST 4 mg ondansetron (Zofran) inj 4 mg 4 mg, IV Push, ONCE, On Fri01/08/23 at 2100, For 1 dose Given 01/08/2023 8:21 PM EST 4 mg ondansetron ODT (Zofran) tab 4 mg 4 mg, On Tongue, ONCE, On Fri01/08/23 at 0915, For 1 dose Given 01/08/2023 8:45 AM EST 4 mg PHENobarbital inj 130 mg 130 mg, Intravenous, Q1H PRN Other, CIWA-Ar Scale greater than 15, repeat CIWA-Ar in 60 minutes. Assess and record Level of consciouness and Respiratory Rate just prior to each dose of PHENobarbital and 15 minutes after each dose of PHENobarbital. Hold PHENobarbital for Respiratory Rate less than 12, somnolent/inability to arouse. Notify provider if patient receives 2 doses, Starting on Fri01/08/23 at 0220, Until Sendy 01/09/23 at 1508, For 2 doses, If given IV Push maximum rate is 60 mg/min. PHENobarbital inj 65 mg 65 mg, Intravenous, Q1H PRN Other, CIWA-Ar Scale 8-15, repeat CIWA-Ar in 60 minutes. Assess and record Level of consciouness and Respiratory Rate just prior to each dose of PHENobarbital and 15 minutes after each dose of PHENobarbital. Hold PHENobarbital for Respiratory Rate less than 12, somnolent/inability to arouse. Notify provider if patient receives 2 doses, Starting on Fri01/08/23 at 0220, Until Sendy 01/09/23 at 0652, For 2 doses, If given IV Push maximum rate is 60 mg/min. Given 01/09/2023 6:52 AM EST 65 mg Given 01/08/2023 10:00 AM EST 65 mg PHENobarbital inj 65 mg 65 mg, IV Push, ONCE, On Fri01/08/23 at 1230, For 1 dose, If given IV Push maximum rate is 60 mg/min. Given 01/08/2023 12:02 PM EST 65 mg PHENobarbital tab 32.4 mg 32.4 mg, PO/NG, Q8H, First dose (after last modification) on 01/12/23 at 0600, Last dose on 01/13/23 at 2200, For 6 doses, Hold PHENobarbital for Respiratory Rate less than 12, somnolent/inability to arouse PHENobarbital tab 64.8 mg 64.8 mg, PO/NG, Q8H, First dose (after last modification) on Fri01/10/23 at 0600, Last dose on Fri01/11/23 at 2200, For 6 doses, Hold PHENobarbital for Respiratory Rate less than 12, somnolent/inability to arouse PHENobarbital tab 97.2 mg 97.2 mg, PO/NG, Q8H, First dose (after last modification) on Fri01/08/23 at 0600, Last dose on Sendy 01/09/23 at 2200, For 6 doses, Hold PHENobarbital for Respiratory Rate less than 12, somnolent/inability to arouse Given 01/09/2023 1:52 PM EST 97.2 mg Given 01/09/2023 5:59 AM EST 97.2 mg Given 01/08/2023 9:22 PM EST 97.2 mg thiamine (Vitamin B 1) 500 mg in D5W 100 mL ivpb 500 mg, IV Piggyback, ONCE, 1 dose, On Fri01/08/23 at 1230, Administer over 30 Minutes New Bag 01/08/2023 12:30 PM EST 500 mg 220 mL/hr THIAMINE (vitamin B-1) tab 100 mg 100 mg, Oral, Daily(AM), First dose (after last modification) on Fri01/09/23 at 0900, Until Discontinued Given 01/09/2023 9:22 AM EST 100 mg documented in this encounter Active and Recently Administered Medications Times are shown in EST. Scheduled Medication Order 01/07/2023 01/08/2023 01/09/2023 folic acid tab 1 mg 1 mg, Oral, Daily(AM), First dose on Fri01/08/23 at 0900, Until Discontinued 1204 (Given - Provider: Mallorie Gaffney RN - Comment: pt initially refused, per aaron, okay to give now.) 921 (Given - Provider: LOPEZ Guzmán) ketorolac (Toradol) 15 MG/ML inj 15 mg (COMPLETED) 15 mg, IV Push, ONCE, On Fri01/08/23 at 2100, For 1 dose 2020 (Given - Provider: Mallorie Gaffney RN) multivitamin (Mvi) 1 Tablet 1 Tablet, Oral, DAILY NOON, First dose on Fri01/08/23 at 1200, Until Discontinued 1204 (Given - Provider: Mallorie Gaffney RN) 1231 (Given - Provider: Gail Brown RN) Nicotine (Nicoderm CQ) 21 MG/24HR patch 1 Patch (COMPLETED) 1 Patch, Transdermal, ONCE, On Fri01/08/23 at 0715, For 1 dose, Do NOT cut the patch. Remove any Nicotine patches the patient may currently be wearing prior to applying the new patch. Place on clean hairless area. Remove for patient showers. WASTE INFO: Return packaging and waste medication in zip lock bag to pharmacy - [facility] container. 0642 (Patch Applied - Provider: Phan Lu RN) 0642 (Patch Removed - Provider: Suze Walker RN - Comment: patch is not present) Nicotine (Nicoderm CQ) 21 MG/24HR patch 1 Patch 1 Patch, Transdermal, Daily(AM), First dose on Fri01/09/23 at 1000, Until Discontinued, Do NOT cut the patch. Remove any Nicotine patches the patient may currently be wearing prior to applying the new patch. Place on clean hairless area. Remove for patient showers. WASTE INFO: Return packaging and waste medication in zip lock bag to pharmacy [facility] container. 0929 (Patch Applied - Provider: LOPEZ Guzmán)1402 (Due: Patch Removed - Provider: Discharge, Physician - Comment: Time automatically adjusted from order being discontinued) ondansetron (Zofran) inj 4 mg (COMPLETED) 4 mg, IV Push, ONCE, On Fri01/08/23 at 1230, For 1 dose 1200 (Given - Provider: Mallorie Gaffney RN) ondansetron (Zofran) inj 4 mg (COMPLETED) 4 mg, IV Push, ONCE, On Fri01/08/23 at 2100, For 1 dose 2020 (Given - Provider: Mallorie Gaffney RN) ondansetron ODT (Zofran) tab 4 mg (COMPLETED) 4 mg, On Tongue, ONCE, On Fri01/08/23 at 0915, For 1 dose 0845 (Given - Provider: Camryn Hicks RN) PHENobarbital inj 65 mg (COMPLETED) 65 mg, IV Push, ONCE, On Fri01/08/23 at 1230, For 1 dose, If given IV Push maximum rate is 60 mg/min. 1202 (Given - Provider: Mallorie Gaffney RN) PHENobarbital tab 32.4 mg(Linked Group 1) 32.4 mg, PO/NG, Q8H, First dose (after last modification) on Fri01/12/23 at 0600, Last dose on Fri01/13/23 at 2200, For 6 doses, Hold PHENobarbital for Respiratory Rate less than 12, somnolent/inability to arouse PHENobarbital tab 64.8 mg(Linked Group 1) 64.8 mg, PO/NG, Q8H, First dose (after last modification) on Fri01/10/23 at 0600, Last dose on Fri01/11/23 at 2200, For 6 doses, Hold PHENobarbital for Respiratory Rate less than 12, somnolent/inability to arouse PHENobarbital tab 97.2 mg(Linked Group 1) 97.2 mg, PO/NG, Q8H, First dose (after last modification) on Fri01/08/23 at 0600, Last dose on Sendy 01/09/23 at 2200, For 6 doses, Hold PHENobarbital for Respiratory Rate less than 12, somnolent/inability to arouse 0848 (Given - Provider: Camryn Hicks RN - Comment: patient agreed to take medication. provider aware and ok with the administration.)1351 (Given - Provider: Mallorie Gaffney RN)2122 (Given - Provider: Mallorie Gaffney RN) 0559 (Given - Provider: Suze Walker RN)1352 (Given - Provider: Gail Brown RN) thiamine (Vitamin B 1) 500 mg in D5W 100 mL ivpb (COMPLETED) 500 mg, IV Piggyback, ONCE, 1 dose, On Fri01/08/23 at 1230, Administer over 30 Minutes 1230 (New Bag - Provider: Mallorie Gaffney RN)1307 (Stopped - Provider: Mallorie Gaffney RN) THIAMINE (vitamin B-1) tab 100 mg 100 mg, Oral, Daily(AM), First dose (after last modification) on Sendy 01/09/23 at 0900, Until Discontinued 0922 (Given - Provid er: LOPEZ Guzmán) Continuous Medication Order 01/07/2023 01/08/2023 01/09/2023 NSS infusion Intravenous, at 150 mL/hr, CONTINUOUS, Starting on Fri01/08/23 at 0345, Until Sendy 01/09/23 at 1508 0625 (New Bag - Provider: Phan Lu, RN)1307 (Stopped - Provider: Mallorie Gaffney, CHUY) PRN Medication Order 01/07/2023 01/08/2023 01/09/2023 PHENobarbital inj 130 mg 130 mg, Intravenous, Q1H PRN Other, CIWA-Ar Scale greater than 15, repeat CIWA-Ar in 60 minutes. Assess and record Level of consciouness and Respiratory Rate just prior to each dose of PHENobarbital and 15 minutes after each dose of PHENobarbital. Hold PHENobarbital for Respiratory Rate less than 12, somnolent/inability to arouse. Notify provider if patient receives 2 doses, Starting on Fri01/08/23 at 0220, Until Sendy 01/09/23 at 1508, For 2 doses, If given IV Push maximum rate is 60 mg/min. PHENobarbital inj 65 mg (COMPLETED) 65 mg, Intravenous, Q1H PRN Other, CIWA-Ar Scale 8-15, repeat CIWA-Ar in 60 minutes. Assess and record Level of consciouness and Respiratory Rate just prior to each dose of PHENobarbital and 15 minutes after each dose of PHENobarbital. Hold PHENobarbital for Respiratory Rate less than 12, somnolent/inability to arouse. Notify provider if patient receives 2 doses, Starting on Fri01/08/23 at 0220, Until Discontinued, For 2 doses, If given IV Push maximum rate is 60 mg/min. 1000 (Given - Provider: Camryn Hicks, CHUY) 0652 (Given - Provider: Suze Walker RN) Linked Groups Order Group 1: PHENobarbital tab 97.2 mgJump to med 97.2 mg, PO/NG, Q8H, First dose (after last modification) on Fri01/08/23 at 0600, Last dose on Sendy 01/09/23 at 2200, For 6 doses, Hold PHENobarbital for Respiratory Rate less than 12, somnolent/inability to arouse Followed by PHENobarbital tab 64.8 mgJump to med 64.8 mg, PO/NG, Q8H, First dose (after last modification) on 01/10/23 at 0600, Last dose on 01/11/23 at 2200, For 6 doses, Hold PHENobarbital for Respiratory Rate less than 12, somnolent/inability to arouse Followed by PHENobarbital tab 32.4 mgJump to med 32.4 mg, PO/NG, Q8H, First dose (after last modification) on 01/12/23 at 0600, Last dose on 01/13/23 at 2200, For 6 doses, Hold PHENobarbital for Respiratory Rate less than 12, somnolent/inability to arouse documented in this encounter Advance Directives Latest Code Status on File Code Status Date Activated Date Inactivated Comments Full Code 01/09/2023 3:12 PM This orde r reflects the patients wishes and were consensually agreed upon. Question Answer Comments Discussion of Advance Directives occurred with: Patient Does the patient have a Living Will? No Does the patient have Health Care Power of Popcorn Vendor? No Code Status History Code Status Date Activated Date Inactivated Comments Full Code 06/13/2015 10:30 AM 06/15/2015 6:35 PM This order reflects the patients wishes and were consensually agreed upon. Question Answer Comments Discussion of Advance Directives occurred with: Not Discussed Does the patient have a Living Will? No Does the patient have Health Care Power of Popcorn Vendor? No
--- OUTSIDE RECORDS SUMMARY | 2023-03-30 03:39 | External Medical Summary ---
Author Name Unknown Address Unknown Organization K1G:LAB[facility]AT[facility] - [address] [place] [id number] Laboratory Report Ordering Provider Test Date Status JUAN BENJAMIN 01/08/2023 02:33:17 Fin al Observation Date Value Abnormality Reference (Units ) Status Magnesium 01/08/2023 02:33:17 2.2 1.5-2.6 (m g/dL) Final Performing Location [facility] - [address] [facility] [phone]
--- OUTSIDE RECORDS SUMMARY | 2023-03-30 03:39 | External Medical Summary | Summary of Care ---
Author Name Unknown Organization [facility] Address [address] [place] [address] Phone [phone] Care Team Providers Care [employer] Admissions Representative Name Role Phone Unavailable Primary Care Provider Unavailabl e Encounter Details Date Type Department Care Team (Late st Contact Info) Description 01/08/2023 CardioDiagnostic Study Unspecified Department Sejal Milligan, [address] [place] [address] EKG Report Allergies No known active allergiesdocumented as of this encounter (statuses as of 01/11/2023) Medications Medication Sig Dispensed Refills Start Date [...] as of this encounter (statuses as of 01/11/2023) Active Problems Problem Noted Date Diagnosed Date Hypertension 01/10/2023 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 01/10/2023 Alcohol use disorder, severe, dependence 023 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 Concussion 06/18/2015 documented as of this encounter (statuses as of 01/11/2023) Social History Tobacco Use Types Packs/Day Years [...] on file documented as of this encounter Procedure Notes * Karl Hill MD - 01/08/2023 10:46 AM ESTAssociated Order(s): EKG REPORT REASON FOR STUDY: REPEAT CHEST PAIN CONCLUSIONS: Normal sinus rhythm Normal ECG When compared with ECG of 08-JAN-2023 03:06, No significant change was found Ventricular Rate: 89 Atrial Rate: 89 OR Interval: 144 QRS Duration: 106 QT/QTc: 384/467 ms P-R-T [place]: 67 : 89 : 60 degrees documented in this encounter Plan of Treatment Upcoming Encounters Date Type Department Care Team (Late st Contact Info) Description 01/20/2023 1:20 PM EST Office Visit [facility] [address] [place] [address] Laurie Paiz MD [address] [facility] [place] [address] Health Maintenance Due Date Last Done [...] Procedure Name Priority Date/Time Associated Diagnosis Comments EKG REPORT 01/08/2023 10:46 AM EST documented in this encounter Results * EKG REPORT (01/08/2023 10:46 AM EST) 01/08/2023 10:4 6 AM EST Narrative Procedure Note Karl Hill MD - 01/08/2023 10:46 AM EST REASON FOR STUDY: REPEAT CHEST PAIN CONCLUSIONS: Normal sinus rhythm Normal ECG When compared with ECG of 08-JAN-2023 03:06, No significant change was found Ventricular Rate: 89 Atrial Rate: 89 OR Interval: 144 QRS Duration: 106 QT/QTc: 384/467 ms P-R-T [place]: 67 : 89 : 60 degrees Sejal Sterling DO EKG documented in this encounter Advance Directives Latest Code Status on File Code Status Date Activated Date Inactivated Comments Full Code 01/09/2023 3:12 PM This orde r reflects the patients wishes and were consensually agreed upon. Question Answer Comments Discussion of Advance Directives occurred with: Patient Does the patient have a Living Will? No Does the patient have Health Care Power of Social Work Lecturer? No Code Status History Code Status Date Activated Date Inactivated Comments Full Code 06/13/2015 10:30 AM 06/15/2015 6:35 PM This order reflects the patients wishes and were consensually agreed upon. Question Answer Comments Discussion of Advance Directives occurred with: Not Discussed Does the patient have a Living Will? No Does the patient have Health Care Power of Social Work Lecturer? No
--- OUTSIDE RECORDS SUMMARY | 2023-03-30 03:39 | External Medical Summary ---
Author Name Unknown Address Unknown Organization K1G:LAB[facility] - [address] [place] [id number] Laboratory Report Ordering Provider Test Date Status JUAN BENJAMIN 01/08/2023 02:34:25 Fin al Cutoff Concentrations:
D rug Level
Amphetamines 500 ng/mL
Barbiturates 300 ng/mL
Benzodiazepines 300 ng/mL
Cannabinoids 50 ng/mL
Cocaine Metabolite 300 ng/mL
Morphine / Codeine 300 ng/mL
Methadone 300 ng/mL
Oxycodone 100 ng/mL

Screening results are presumptive and can only be used for medical purposes. Positive screening results are reflexed to confirmatory testing. Observation Date Value Abnormality Reference (Units ) Status Amphetamines, Urine screen 01/08/2023 02:34:25 Negative Negative Final Barbiturates, Urine 01/08/2023 02:34:25 Negative Negative Final Benzodiazepines, Urine screen 01/08/2023 02:34:25 Positive Abnormal Negative Final Cannabinoids, Urine screen 01/08/2023 02:34:25 Negative Negative Final Cocaine Metabolite, Urine screen 01/08/2023 02:34:25 Negative Negative Final Opiates, Urine screen 01/08/2023 02:34:25 Negative Negative Final 7-Dmbeegagrq-7,5-Dimeth yl-3,3-Diphenylpyrrolid ine (EDDP) [Presence] in Urine 01/08/2023 02:34:25 Negative Negative Final oxyCODONE [Presence] in Urine by Screen method 01/08/2023 02:34:25 Negative Negative Final Performing Location [facility] - [address] [facility] [id number]
--- OUTSIDE RECORDS SUMMARY | 2023-03-30 03:39 | External Medical Summary ---
Author Name Unknown Address Unknown Organization K1G:LABORATORY [facility] - [address] [place] [phone] Laboratory Report Ordering Provider Test Date Status ZI HAIR 01/08/2023 13:11:26 Final Observation Date Value Abnormality Reference (Units ) Status Ethanol 01/08/2023 13:11:26 111.0 Above high normal Ne gative (mg/dL) Final Performing Location LABORATORY [facility] - [address] [facility] [phone]
--- OUTSIDE RECORDS SUMMARY | 2023-03-30 03:39 | External Medical Summary | Summary of Care ---
Author Name Unknown Organization [facility] Address [address] [place] [address] Phone [phone] Care Team Providers Care Clinical Trial Assistant Name Role Phone Laurie Paiz MD Primary Care Provid er Reason for Visit * Reason Onset Date Comments Follow Up Pt states that carly telles was in [place] and he was started on a new medication Hospital Follow-Up 01/20/2023 Encounter Details Date Type Department Care Team (Late st Contact Info) Description 01/20/2023 1:20 PM EST Office Visit [facility] [address] [place] [address] Laurie Paiz MD [address] [place] [address] Hospital discharge follow-up*; 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); Alcohol use disorder, severe, dependence (HCC); Alcohol-induced mood disorder (HCC); Therapeutic drug monitoring; Screening for HIV without presence of risk factors; Encounter for hepatitis C screening test for low risk patient; Medical marijuana use; Anxiety Allergies Active Allergy Reactions Criticality Noted Date [...] Active Naltrexone HCl 50 MG Oral Tablet (Revia)Indication s: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),Alcohol use disorder, severe, dependence (HCC),Alcohol-ind uced mood disorder (HCC),Anxiety Take 1 Tablet by mouth in the morning. 30 Tablet 5 01/20/2023 Active Mirtazapine 7.5 MG Oral Tablet (Remeron)Indicati ons: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),Alcohol use disorder, severe, dependence (HCC),Alcohol-ind uced mood disorder (HCC),Anxiety Take 1 Tablet by mouth every night at bedtime. 30 Tablet 5 01/20/2023 Active Mirtazapine 7.5 [...] Sign Reading Time Taken Comments Blood Pressure 108/80 01/20/2023 1:28 PM EST Pulse 93 01/20/2023 1:28 PM EST Temperature 36.9 C (98.4 F) 01/20/2023 1:28 PM ES T Respiratory Rate 18 01/20/2023 1:28 PM EST Oxygen Saturation 99% 01/20/2023 1:28 PM EST Inhaled Oxygen Concentration - - Weight 60.5 kg (133 lb 6.4 oz) 01/20/2023 1:28 P M EST Height 177.8 cm (5' 10") 01/20/2023 1:28 PM EST Body Mass Index 19.14 01/20/2023 1:28 PM EST documented in this encounter Progress Notes * Laurie Paiz MD - 01/20/2023 1:24 PM EST ASSESSMENT / PLAN: José Luis Arreola is a 27 year old male with PMHx alcoholism recently completed inpatient rehab in Nov- Here for IRIS - admitted at [facility] the following dates 01/09-01/12 Presented with: suicide attempt (firearm), 302 - recent h/o within the past 2 months he has been drinking a 5th of vodka each day Diagnosis: suicidality, alcohol induced Diagnostics: AST 72 ALT 96 Hospital stay complicated by: 1- none Treatments / Consultation(s): 1- Psych Changes to chronic medications: 1 - start naltrexone 50mg daily 2- start mirtazapine 7.5mg daily 3- stop ativan Plan for intake appointment on Monday 01/22 at 12:30 PM with [facility] - pt plans to reschedulethis Add hydroxyzine prn Defer to psychiatry with regard to benzodiazepine scripts Naltrexone - Oral: 50 mg once daily; may increase to 100 mg once daily after 1 week based on response and tolerability. To continue as long as LFTs remain stable Follow Up: Return in about 3 months (around 04/22/2023) for Labs Today. | For: Labs Today | Check-out note: Schedule labs today and every 2 weeks x2 please Hospital discharge follow-up (Primary) - DISCH MED RECON CUR MED LIS 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) - COMPREHENSIVE METABOLIC PANEL; Standing - RETURN TO WORK OR SCHOOL - DISCH MED RECON CUR MED LIS - Naltrexone HCl 50 MG Oral Tablet (Revia); Take 1 Tablet by mouth in the morning. - Mirtazapine 7.5 MG Oral Tablet (Remeron); Take 1 Tablet by mouth every night at bedtime. Alcohol use disorder, severe, dependence (HCC) - COMPREHENSIVE METABOLIC PANEL; Standing - RETURN TO WORK OR SCHOOL - DISCH MED RECON CUR MED LIS - Naltrexone HCl 50 MG Oral Tablet (Revia); Take 1 Tablet by mouth in the morning. - Mirtazapine 7.5 MG Oral Tablet (Remeron); Take 1 Tablet by mouth every night at bedtime. Alcohol-induced mood disorder (HCC) - COMPREHENSIVE METABOLIC PANEL; Standing - RETURN TO WORK OR SCHOOL - DISCH MED RECON CUR MED LIS - Naltrexone HCl 50 MG Oral Tablet (Revia); Take 1 Tablet by mouth in the morning. - Mirtazapine 7.5 MG Oral Tablet (Remeron); Take 1 Tablet by mouth every night at bedtime. Therapeutic drug monitoring - COMPREHENSIVE METABOLIC PANEL; Standing - RETURN TO WORK OR SCHOOL - DISCH MED RECON CUR MED LIS Screening for HIV without presence of risk factors - HIV ANTIGEN & ANTIBODY SCREEN W/ CONFIRMATION; Future; Expected date: 01/20/2023 - DISCH MED RECON CUR MED LIS Encounter for hepatitis C screening test for low risk patient - HEPATITIS C ANTIBODY SCREEN WITH PROGRESSION TO HEPATITIS C RNA QUANTITATIVE; Future; Expected date: 01/20/2023 - DISCH MED RECON CUR MED LIS Medical marijuana use Anxiety - hydrOXYzine HCl 10 MG Oral Tablet (Atarax); Take 1 Tablet by mouth every 6 hours as needed for Anxiety. - Naltrexone HCl 50 MG Oral Tablet (Revia); Take 1 Tablet by mouth in the morning. - Mirtazapine 7.5 MG Oral Tablet (Remeron); Take 1 Tablet by mouth every night at bedtime. Follow Up: Return in about 3 months (around 04/22/2023) for Labs Today. | For: Labs Today | Check-out note: Schedule labs today and every 2 weeks x2 please If needed, prefers contact by: Ok to leave message on phone: SUBJECTIVE: Nursing Notes: Namita Yip, SHREYA 01/20/23 1329 Signed José Luis Arreola is a 27 year old male who presents today for Chief Complaint Patient presents with Follow Up Pt states that he was in [place] and he was started on a new medication HPI: José Luis Arreola is a 27 year old male. He is adherent with naltrexone, notes no side effects. Denies suicidality since discharge. Denies alcohol use since discharge. Says he was historically on ativan for panic attacks - 30 tabs would last longer than a month. Xanax and buspar caused side effects (sedation, dizziness respectively). He is trying to reschedule his [facility] intake appt because he is only free on Mondays and Tuesdays Lives with and son Trying to get a medical marijuana card He is giving up his conceal and carry license and selling his guns (which are kept at his father's house). Patient Active Problem List Diagnosis Code Concussion S06.0XAA Alcohol-induced mood disorder ([facility]) F10.94 Alcohol dependence with alcohol-induced sleep disorder ([facility]) F10.282 Alcohol use disorder, severe, dependence ([facility]) F10.20 Transaminitis R74.01 Medical marijuana use Z79.899 Current Outpatient Medications Medication Sig Dispense Refill hydrOXYzine HCl 10 MG Oral Tablet (Atarax) Take 1 Tablet by mouth every 6 hours as needed for Anxiety. 40 Tablet 2 Naltrexone HCl 50 MG Oral Tablet (Revia) Take 1 Tablet by mouth in the morning. 30 Tablet 5 Mirtazapine 7.5 MG Oral Tablet (Remeron) Take 1 Tablet by mouth every night at bedtime. 30 Tablet 5 Proventil HFA 108 (90 Base) MCG/ACT Inhalation Aerosol Solution Inhale 2 Puffs by mouth every 4 hours as needed for Wheezing. (Patient not taking: Reported on 01/09/2023) 8 g 0 No current facility-administered medications for this visit. OBJECTIVE: BP 108/80 (BP Site: Right Arm, BP Position: Sitting, BP Cuff Size: Regular) | Pulse 93 | Temp 36.9 C (98.4 F) (Temporal Artery) | Resp 18 | Ht 1.778 m (5' 10") | Wt 60.5 kg (133 lb 6.4 oz) | SzT656% | BMI 19.14 kg/m | BSA 1.73 m Vitals reviewed and is normotensive / afebrile / and not tachycardic General: No acute distress. Neuro: Alert Pleasant & interactive. Respiratory: Good inspiratory effort, no labored breathing. CTAB CV: RRR no M R G Abd: soft nontender normoactive bs no hsm HEENT: Conjunctivae appear clear. No swelling noted face or lips. Skin: No rash visible on exposed skin areas, normal coloration & appears dry. Psych: Normal affect. Fluent speech. Laurie Paiz MD [facility], [place] [address] [facility] [address] documented in this encounter Nursing Notes * Namita Yip CCMA - 01/20/2023 1:28 PM EST José Luis Arreola is a 27 year old male who presents today for Chief Complaint Patient presents with Follow Up Pt states that he was in [place] and he was started on a new medication documented in this encounter Plan of Treatment Upcoming Encounters Date Type Department Care Team (Late st Contact Info) Description 02/03/2023 11:00 AM EST Laboratory Laboratory, [place] [address] [place] [address] [facility] [address] [place] [address] 02/18/2023 11:00 AM EST Laboratory Laboratory, [place] [address] [place] [phone] [place], [facility] [address], [place] [phone] 04/22/2023 11:00 AM EST Office Visit Family Practice, [place] [address] [place] [address] Laurie Paiz MD [address], [place] [phone] Pending Results Name Type Priority Associated Diagnoses [...] low risk patient 01/20/2023 2:21 PM EST Scheduled Orders Name Type Priority Associated Diagnoses Orde r Schedule COMPREHENSIVE METABOLIC PANEL Lab Routine 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) Alcohol use disorder, severe, dependence (HCC) Alcohol-induced mood disorder (HCC) Therapeutic drug monitoring Every 2 Weeks for 3 Occurrences starting 01/20/2023 until 01/21/2024 HIV ANTIGEN & ANTIBODY SCREEN W/ CONFIRMATION Lab Routine Screening for HIV without presence of risk factors Expected: 01/20/2023 (Approximate), Expires: 01/20/2024 HEPATITIS C ANTIBODY SCREEN WITH PROGRESSION TO HEPATITIS C RNA QUANTITATIVE Lab Routine Encounter for hepatitis C screening test for low risk patient Expected: 01/20/2023 (Approximate), Expires: 01/20/2024 Health Maintenance Due Date Last Done Comments [...] as of this encounter Visit Diagnoses Diagnosis Hospital discharge follow-up- Primary Other follow-up examination 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) [...] C screening test for low risk patient Medical marijuana use Encounter for long-term (current) use of other medications Anxiety Anxiety state, unspecified documented in this encounter Advance Directives Latest [...] the patient have Health Care Power of Broke Worker? No Code Status History Code Status Date Activated Date Inactivated Comments Full Code 06/13/2015 10:30 AM 06/15/2015 6:35 PM This order reflects the patients wishes and were consensually agreed upon. Question Answer Comments Discussion of Advance Directives occurred with: Not Discussed Does the patient have a Living Will? No Does the patient have Health Care Power of Broke Worker? No Care Teams Clinical Trial Assistant Relationship Specialty Start Date End Date Laurie Paiz MD [address] [place] [address] PCP - General Family Medicine 01/14/23 documented as of this encounter
--- OUTSIDE RECORDS SUMMARY | 2023-03-30 03:39 | External Medical Summary ---
Author Name Unknown Address Unknown Organization K1G:LABORATORY [facility] - [address] [facility] [id number] Laboratory Report Ordering Provider Test Date Status JUAN BENJAMIN 01/08/2023 02:33:17 Fin al Observation Date Value Abnormality Reference (Units ) Status BUN 01/08/2023 02:33:17 4 Below low normal 6-20 (mg/dL) Final Creatinine 01/08/2023 02:33:17 0.8 0.6-1.2 (mg/dL) Final Glomerular filtration rate/1.73 sq M.predicted [Volume Rate/Area] in Serum, Plasma or Blood by Creatinine-based formula (CKD-EPI) 01/08/2023 02:33:17 >90 >=60 (mL/min) Final eGFR is calculated based on the CKD-EPI 2020 equation SODIUM 01/08/2023 02:33:17 141 135-146 (m mol/L) Final Potassium 01/08/2023 02:33:17 3.9 3.5-5.1 (m mol/L) Final Cl 01/08/2023 02:33:17 102 98-107 (mm ol/L) Final CO2 01/08/2023 02:33:17 25 22-32 (mmo l/L) Final Anion gap 01/08/2023 02:33:17 14 7-15 (mmol /L) Final Glucose 01/08/2023 02:33:17 94 70-120 (mg /dL) Final Albumin 01/08/2023 02:33:17 4.9 3.8-5.0 (g /dL) Final AST (Aspartate aminotransferase) 01/08/2023 02:33:17 190 Above high normal 10-50 (U/L) Final Alk Phos 01/08/2023 02:33:17 70 35-130 (U/ L) Final Bilirubin, Total 01/08/2023 02:33:17 1.4 Above high no rmal <=1.2 (mg/dL) Final Calcium 01/08/2023 02:33:17 9.0 8.4-10.2 ( mg/dL) Final Protein 01/08/2023 02:33:17 7.9 6.0-8.3 (g /dL) Final ALT (Alanine aminotransferase) 01/08/2023 02:33:17 139 Above high normal 10-50 (U/L) Final Performing Location LABORATORY [facility] - [address] [place] [phone]
--- OUTSIDE RECORDS SUMMARY | 2023-03-30 03:39 | External Medical Summary ---
Author Name Unknown Address Unknown Organization K1G:LABORATORY [facility] - [address] [place] [id number] Laboratory Report Ordering Provider Test Date Status JUAN BENJAMIN 01/08/2023 02:33:17 Fin al Observation Date Value Abnormality Reference (Units ) Status Salicylates 01/08/2023 02:33:17 <0.3 Below low normal 5 .0-30.0 (mg/dL) Final Performing Location [facility]ORY [facility] - [address] [facility] [phone]
--- OUTSIDE RECORDS SUMMARY | 2023-03-30 03:39 | External Medical Summary | Summary of Care ---
Author Name Unknown Organization [facility] Address [address] [place] [address] Phone [phone] Care Team Providers Care Couture Alterations Dressmaker Name Role Phone Laurie Paiz MD Primary Care Provid er Reason for Visit * Reason Onset Date Comments Appointment 02/03/2023 Vascular Ultraso und Encounter Details Date Type Department Care Team (Late st Contact Info) Description 02/03/2023 Telephone [facility] [address] [place] [address] Laurie Paiz MD [address] [place] [address] Appointment (Vascular Ultrasound) Allergies Active Allergy Reactions Criticality Noted Date Comments Cephalexin High 05/17/2022 Other Reaction(s): Hives Sulfamethoxazole High 05/17/2022 Other Reaction(s): Hives Trimethoprim High 05/17/2022 Other Reaction(s): Hives documented as of this encounter (statuses as of 02/04/2023) Medications Medication Sig Dispensed Refills Start Date [...] as of this encounter (statuses as of 02/04/2023) Active Problems Problem Noted Date Diagnosed Date Transaminitis 01/20/2023 Medical marijuana use 01/20/2023 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 02/04/2023 * Telephone Encounter - Nessa Adame OSA - 02/03/2023 3:01 PM EST LMOM to schedule Vascular Ultrasound. 02/03/2023 documented in this encounter Plan of Treatment Upcoming Encounters Date Type Department Care Team (Late st Contact Info) Description 02/05/2023 11:30 AM EST Imaging Radiology, [place] [address] [place] [id number] 02/18/2023 11:00 AM EST Laboratory Laboratory, [place] [address] [place] [address] [place], [facility] [address] [place] [address] 04/22/2023 11:00 AM EST Office Visit Family Practice, [place] [address] [place] [address] Laurie Paiz MD [address] [place] [address] Health Maintenance Due Date Last [...] the patient have Health Care Power of Direct Mail Clerk? No Code Status History Code Status Date Activated Date Inactivated Comments Full Code 06/13/2015 10:30 AM 06/15/2015 6:35 PM This order reflects the patients wishes and were consensually agreed upon. Question Answer Comments Discussion of Advance Directives occurred with: Not Discussed Does the patient have a Living Will? No Does the patient have Health Care Power of Direct Mail Clerk? No Care Teams Couture Alterations Dressmaker Relationship Specialty Start Date End Date Laurie Paiz MD [address] [place] [address] PCP - General Family Medicine 01/14/23 documented as of this encounter
--- OUTSIDE RECORDS SUMMARY | 2023-03-30 03:39 | External Medical Summary | Summary of Care ---
Author Name Unknown Organization [facility] Address [address] [place] [address] Phone [phone] Care Team Providers Care Aerospace Technician Name Role Phone Laurie Paiz MD Primary Care Provid er Encounter Details Date Type Department Care Team (Late st Contact Info) Description 02/03/2023 Telephone [facility] [address] [place] [address] Laurie Paiz MD [address] [place] [address] Allergies Active Allergy Reactions Criticality Noted Date [...] encounter Miscellaneous Notes * Telephone Encounter - Laurie Paiz MD - 02/03/2023 11:13 AM EST Lab reached out to me to examine a patient - concern for persistent small mass on left bicep area -x 4 weeks, since discharged from inpatient stay. Painless, no discoloration. Mass could be a tendonor localized to vein, unclear from my examination. Recommend u/s to know more. Verbalized understanding and agreement with this plan, answered all questions. I will f/u with pt once resulted AG documented in this encounter Plan of Treatment Upcoming Encounters Date Type Department Care Team (Late st Contact Info) Description 02/18/2023 11:00 AM EST Laboratory Laboratory, [place] [address] [place] [address] [facility] [address] [place] [address] 04/22/2023 11:00 AM EST Office Visit Family [facility] [place] [address] [place] [phone] Laurie Paiz MD [address] [place] [address] Scheduled Orders Name Type Priority Associated Diagnoses Orde r Schedule VASC DUPLEX VENOUS UE UNILAT Medical Imaging Routine Mass of left upper extremity Ordered: 02/03/2023 Health Maintenance Due Date Last Done Comments [...] as of this encounter Visit Diagnoses Diagnosis Mass of left upper extremity- Primary documented in this encounter Advance Directives Latest [...] the patient have Health Care Power of Real Estate Leasing Agent? No Code Status History Code Status Date Activated Date Inactivated Comments Full Code 06/13/2015 10:30 AM 06/15/2015 6:35 PM This order reflects the patients wishes and were consensually agreed upon. Question Answer Comments Discussion of Advance Directives occurred with: Not Discussed Does the patient have a Living Will? No Does the patient have Health Care Power of Real Estate Leasing Agent? No Care Teams Aerospace Technician Relationship Specialty Start Date End Date Laurie Paiz MD [address] [facility] [place] [address] PCP - General Family Medicine 01/14/23 documented as of this encounter
--- OUTSIDE RECORDS SUMMARY | 2023-03-30 03:39 | External Medical Summary ---
Author Name Unknown Address Unknown Organization K1G:LABORATORY [facility] - [address] [facility] [phone] Laboratory Report Ordering Provider Test Date Status JUAN BENJAMIN 01/08/2023 02:33:17 Fin al Observation Date Value Abnormality Reference (Units ) Status SYNC LEUKOCYTES IN BLOOD BY AUTOMATED COUNT 01/08/2023 02:33:17 4.23 4.00-10.80 (K/uL) Final Segs 01/08/2023 02:33:17 66.2 40.0-75.0 (%) Final Lymphs % 01/08/2023 02:33:17 20.1 18.0-42.0 (%) Final Monos 01/08/2023 02:33:17 10.2 1.0-11.0 (%) Final Eosinophils 01/08/2023 02:33:17 3.3 0.0-6.0 (%) Final Basos 01/08/2023 02:33:17 0.2 0.0-2.0 (%) Final Absolute Segs 01/08/2023 02:33:17 2.80 1.80-7.70 (K/uL) Final Lymphs, absolute 01/08/2023 02:33:17 0.85 Below low normal 1.00-4.80 (K/ul) Final Monos, Abs 01/08/2023 02:33:17 0.43 0.00-1.10 (K/uL) Final Eos, Abs 01/08/2023 02:33:17 0.14 0.00-0.70 (K/uL) Final Basos, Abs 01/08/2023 02:33:17 0.01 0.00-0.20 (K/uL) Final Performing Location LABORATORY [facility] - [address] [facility] [id number]
--- OUTSIDE RECORDS SUMMARY | 2023-03-30 03:40 | External Medical Summary ---
Author Name Unknown Address Unknown Organization K1G:LABORATORY [facility] - [address] [place] [phone] Laboratory Report Ordering Provider Test Date Status JUAN BENJAMIN 01/08/2023 02:32:00 Fin al Observation Date Value Abnormality Reference (Units ) Status Troponin T 01/08/2023 02:32:00 <6 <=22 (ng/ L) Final Performing Location LABORATORY [facility] - [address] [place] [id number]
[2023-03-30 04:27] LABS: Alanine Aminotransferase 156 U/L (7-52); Albumin Globulin Ratio 1.3 (0.9-2); Alkaline Phosphatase 92 U/L (34-104); Anion Gap 22 (3-11); Aspartate Aminotransferase 241 U/L (13-39); BUN Creatinine Ratio 8.4 (10-20); Bilirubin,Total 1.9 mg/dl (0.2-1.0); Blood Urea Nitrogen 8 mg/dl (6-23); Calcium 9.1 mg/dl (8.6-10.3); Carbon Dioxide 22 mmol/L (21-32); Chloride 94 mmol/L (98-107); Est GFR (African American) 126.6 ml/min; Est GFR (Non-African American) 109.3 ml/min; Glucose 92 mg/dl (70-99(Fasting)); Potassium 3.5 mmol/L (3.5-5.1); Sodium 138 mmol/L (136-145)
--- NOTE | 2023-03-30 04:27 | Emergency Department Note ---
Impression & Plan Alcohol dependence, Suicidal ideation Admit to the [facility] ED Provider Note NAME: BARBARA VANG AGE: 27 SEX: Male INFORMANT: Patient ED PROVIDER(S): Fatou Gama DO CHIEF COMPLAINT: Suicidal ideation PLAN: Disposition: Admit to the [facility] MEDICAL DECISION MAKING: This is a 27-year-old male patient with history of alcohol abuse who presents to the emergency department with suicidal thoughts. Patient states that he has been drinking alcohol daily for the month of February. His has left him again as he describes it to me that he had thoughts of wanting to kill himself. He had no specific plan. He reached out for help tonight believing that he needs inpatient psychiatric care to keep himself safe. He would also like to stop drinking. Laboratory studies revealed no leukocytosis. There is no evidence of anemia. Renal function is normal. Transaminases are elevated with AST being higher than ALT. Total bilirubin is elevated. Urinalysis reveals 3+ ketones. On physical exam, the patient does appear to be significantly dehydrated. He has had significant nausea and vomiting. He is not sleeping and has had very little food intake. Patient does have a history of withdrawal seizures but has had no seizure activity. He is willing to admit himself voluntarily for inpatient psychiatric care but will require medical admission first to detox from alcohol. IV lock was initiated and banana bag was started. I discussed the case with the [facility]ist and they will evaluate for further inpatient care. Care/management discussed with: ED psychiatric case operator and [facility] Triage Nursing notes: reviewed and agree with them. Vital Signs: reviewed and remarkable for tachycardia Chronic Medical/Social Conditions affecting care: Alcohol abuse; anxiety and depression Differential Diagnosis: Mood disorder, thought disorder, substance abuse HPI: 27 year old Male arrives for evaluation of suicidal ideation. Patient has history of significant alcohol abuse. He explains that his recently left him and he has become more depressed and suicidal. He has no specific plan but did not feel safe at home. He called 911 himself and asked to be brought to the hospital for mental health evaluation. PAST MEDICAL HISTORY: See Below, PAST SURGICAL HISTORY: See Below, SOCIAL HISTORY: See Below, HOME MEDICATIONS: See list ALLERGIES: See list VITALS: See Below PHYSICAL EXAMINATION: HEENT: Head - normocephalic and atraumatic. Pupils are equal, round, and reactive to light. Extraocular eye muscles are intact, and sclera are anicteric. Nose - moist nasal mucosa without discharge. Mouth -extremely dry buccal mucous and cracked lips oropharynx is nonerythematous and there is no tonsillar exudate or edema noted. Neck: Supple; no cervical lymphadenopathy or nuchal rigidity Heart: Regular rate and rhythm. There is a normal S1 and S2 with no murmurs, clicks, or gallops appreciated. Lungs: Clear to auscultation bilaterally with no wheezes, rales, or rhonchi. Abdomen: Soft, completely nontender, nondistended, with good bowel sounds. There are no palpable pulsatile masses or hepatosplenomegaly. There is no guarding, rigidity, or rebound noted. Extremities: No evidence of cyanosis, clubbing, or edema. There are easily palpable peripheral pulses. Skin: warm and dry with good turgor and no rashes. Psych: Patient has a normal affect. He does seem slightly intoxicated. He does describe suicidal ideations but no specific plan. Emergency department treatment: IV banana bag Emergency department course: The patient was evaluated in room 8-5. A complete history and physical was performed. Laboratory studies were drawn as above. Urine specimen was obtained. Patient was evaluated by the ED psychiatric case operator. Patient is significantly intoxicated and wanting admission to the hospital for inpatient psychiatric care and detox. Patient was started on IV banana bag. I discussed the case with the [facility] Hospitalist and they will evaluate for further inpatient care. Past Med/Surg History Medical History Alcohol withdrawal Hepatic steatosis Alcohol dependence Alcohol intoxication Pneumonia Transaminitis Surgical History No pertinent past surgical history Family History Denies family history of Deep vein thrombosis Pulmonary embolism Social History Smoking Status: Current every day smoker Tobacco Type: E-cigarettes / Vaping Second Hand Exposure: No; Do You Dip or Chew Tobacco: No; Hx Alcohol Use: Yes Alcohol type: beer and hard liquor Hx Substance Use: Yes Preferred Language: Slovenian Communication Ability: Effective Occup Therapist Required: No Beliefs That Will Affect Care: None Current Living Situation: Alone Current Living Situation Comment: Pt currently lives in house alone. Pt moved out with child. Feels Safe at Home: Yes Safety Concerns: Feels Safe At This Time Assistive Devices: None Allergies Allergies Allergy/AdvReac Type Severity Reaction Status Date / Time cephalexin Allergy Severe Hives Verified 01/05/23 21:08 sulfamethoxazole Allergy Severe Hives Verified 01/05/23 21:08 [From Bactrim] trimethoprim [From Bactrim] Allergy Severe Hives Verified 01/05/23 21:08 Home Meds Home Medications Medication Instructions Recorded Confirmed hydroxyzine HCl 10 mg tablet 10 mg PO Q6H PRN Anxiety 03/30/23 03/30/23 naltrexone 50 mg tablet 50 mg PO DAILY 03/30/23 03/30/23 Results & Data (ED) Vital Signs Vital Signs - 24 hr 03/30/23 03:47 Temperature 36.7 C Temperature Source Oral Pulse Rate 102 H Respiratory Rate 16 Respiratory Effort / Characteristics Non-Labored Spontaneous Respiratory Depth Normal Respiratory Pattern Regular Blood Pressure 138/93 Blood Pressure Mean 108 Pulse Oximetry 98 Oxygen Delivery Method Room Air Sepsis Recent Fever Within 48 Hours No Sepsis New/Unexplained Change in Mental Status No Sepsis Action Taken by Nursing No Action Required Laboratory Data 03/30/23 03:55 03/30/23 03:55 Lab Results 03/30/23 Range/Units 03:55 WBC 6.82 (4.8-10.8) K/ul RBC 5.69 (4.70-6.10) M/uL Hgb 17.2 (14.0-18.0) g/dl Hct 50.6 (42.0-52.0) % MCV 88.9 (80.0-100.0) fL MCH 30.2 (25.0-34.0) pg MCHC 34.0 (32.0-36.0) g/dL RDW Std Deviation 45.5 (36.4-46.3) fL RDW Coeff of Nidia 14.2 (11.5-14.5) % Plt Count 345 (130-400) K/uL MPV 7.6 L (9.4-12.4) fL Neutrophils % (Manual) 28 % Lymphocytes % (Manual) 19 % Reactive Lymphs % (Man) 47 % Monocytes % (Manual) 6 % Neutrophils # (Manual) 1.91 (1.40-6.50) K/uL Total Absolute Neuts 1.91 (1.4-6.5) K/uL Lymphocytes # (Manual) 1.30 (1.2-3.4) K/uL Reactive Lymphs # 3.21 K/uL Total Abs Lymphocytes 4.50 H (1.2-3.4) K/uL Monocytes # (Manual) 0.41 (0.11-0.59) K/uL Sodium 138 (136-145) mmol/L Potassium 3.5 (3.5-5.1) mmol/L Chloride 94 L (98-107) mmol/L Carbon Dioxide 22 (21-32) mmol/L Anion Gap 22 H (3-11) BUN 8 (6-23) mg/dl Creatinine 0.95 (0.6-1.4) mg/dl Est Cr Clr Drug Dosing Not Reportable Est GFR ( Amer) 126.6 ml/min Est GFR (Non-Af Amer) 109.3 ml/min BUN/Creatinine Ratio 8.4 L (10-20) Glucose 92 (70-99(Fasting)) mg/dl Calcium 9.1 (8.6-10.3) mg/dl Magnesium 2.0 (1.7-2.4) mg/dl Total Bilirubin 1.9 H (0.2-1.0) mg/dl AST 241 H (13-39) U/L ALT 156 H (7-52) U/L Alkaline Phosphatase 92 (34-104) U/L Total Protein 9.0 H (6.0-8.3) gm/dl Albumin 5.0 (3.4-5.0) gm/dl Globulin 4.0 (2.5-4.0) gm/dl Albumin/Globulin Ratio 1.3 (0.9-2) TSH 1.130 (0.300-4.500) uIu/ml Salicylates < 3.0 L (3.0-30) mg/dl Acetaminophen < 3 L (10-30) ug/ml Ethyl Alcohol mg/dL 442.2 H (<10.0) mg/dl Administered Medications Diazepam (Diazepam 5 Mg Tablet) 5 mg PO Q6H [facility] Stop: 04/29/23 07:59 Last Admin: 03/30/23 13:16 Dose: 5 mg Documented By: Admin: 03/30/23 08:01 Dose: 5 mg Documented By: MIKE Gabapentin (Gabapentin 600 Mg Tab) 600 mg PO Q6H [facility] Stop: 03/30/23 18:16 Last Admin: 03/30/23 11:17 Dose: 600 mg Documented By: MANISH Sodium Chloride (Nss) 1,000 mls @ 100 mls/hr IV .Q10H [facility] Stop: 03/30/23 18:26 Last Admin: 03/30/23 09:12 Dose: 100 mls/hr Documented By: MIKE Thiamine HCl 100 mg/ Syringe 10 mls @ 2 mls/min IV [facility] Stop: 04/29/23 08:59 Last Admin: 03/30/23 09:14 Dose: 2 mls/min Documented By: MIKE Folic Acid 1 mg/ Syringe 10 mls @ 5 mls[facility] Stop: 04/29/23 08:59 Last Admin: 03/30/23 09:13 Dose: 5 mls/min Documented By: MIKE Pantoprazole Sodium 40 mg/ (Syringe) 10 mls @ 5 mls/min IV BID [facility] Stop: 04/29/23 08:59 Last Admin: 03/30/23 09:13 Dose: 5 mls/min Documented By: MIKE Miscellaneous (Remove Nicoderm Patch) 1 each N/A DAILY@0859 [facility] Stop: 04/29/23 08:58 Last Admin: 03/30/23 09:17 Dose: Not Given Documented By: MIKE Nicotine (Nicotine 21 Mg/24 Hr Tdsy) 21 mg TD [facility] Stop: 04/29/23 05:34 Last Admin: 03/30/23 05:52 Dose: 21 mg Documented By: DANISH Discontinued Medications Gabapentin (Gabapentin 600 Mg Tab) 1,200 mg PO NOW ONE Stop: 03/30/23 08:28 Last Admin: 03/30/23 09:11 Dose: 1,200 mg Documented By: MIKE Multivitamins 10 ml/ Thiamine HCl 100 mg/ Folic Acid 1 mg/Sodium Chloride 1,011.2 mls @ 500 mls/hr IV .Q2H2M ONE Stop: 03/30/23 07:41 Last Infusion: 02/04/24 08:49 Dose: Infused Documented By: Admin: 03/30/23 06:42 Dose: 500 mls/hr Documented By: DANISH Ibuprofen (Ibuprofen 200 Mg/10 Ml Udc) 600 mg PO NOW STA Stop: 03/30/23 07:52 Last Admin: 03/30/23 08:01 Dose: 600 mg Documented By: MIKE Pantoprazole Sodium (Pantoprazole 40 Mg Tab) 40 mg PO NOW STA Stop: 03/30/23 07:52 Last Admin: 03/30/23 08:01 Dose: 40 mg Documented By: MIKE Potassium Chloride (Potassium Chloride Crtab 20 Meq Tabcr) 20 meq PO NOW STA Stop: 03/30/23 08:28 Last Admin: 03/30/23 09:11 Dose: 20 meq Documented By: MIKE Discharge Plan Visit Data Chief Complaint: Mental Health Evaluation Stated Complaint: MENTAL HEALTH ASSESSMENT (201) ED Provider: Fatou Gama Discharge Problem: Alcohol dependence, Suicidal ideation Discharge Instructions Interventions: ED Discharge Assessment Last Done: 03/30/23 08:28
[2023-03-30 04:30] LABS: Hematocrit (blood only) 50.6 % (42.0-52.0); Hemoglobin 17.2 g/dl (14.0-18.0); Mean Corpuscular Hemoglobin 30.2 pg (25.0-34.0); Mean Corpuscular Volume 88.9 fL (80.0-100.0); Mean Platelet Volume 7.6 fL (9.4-12.4); Platelet Count 345 K/uL (130-400); RDW Coefficient of Variation 14.2 % (11.5-14.5); RDW Standard Deviation 45.5 fL (36.4-46.3); Red Blood Count 5.69 M/uL (4.70-6.10); White Blood Count 6.82 K/ul (4.8-10.8)
[2023-03-30 05:07] LABS: Acetaminophen < 3 ug/ml (10-30); Salicylate < 3.0 mg/dl (3.0-30)
[2023-03-30 05:45] LABS: ANC (manual) 1.91 K/uL (1.4-6.5); Lymphocytes % (manual) 19 %; Monocytes # (manual) 0.41 K/uL (0.11-0.59); Monocytes % (manual) 6 %; Neutrophils # (manual) 1.91 K/uL (1.40-6.50); Neutrophils % (manual) 28 %; Reactive Lymphocytes # (manual) 3.21 K/uL; Reactive Lymphocytes % (manual) 47 %
[2023-03-30] MEDS: NICOTINE 21 MG/24 HR TDSY TD SCH (05:52)
[2023-03-30] MEDS: MULTI-VITAMIN INFUSION 10 ML, THIAMINE HCL 100 MG, FOLIC ACID 1 MG in SODIUM CHLORIDE 0... IV ONE (06:42)
--- NOTE | 2023-03-30 07:31 | History & Physical Report ---
Date of Service March 30, 2023 Assessment & Plan (1) Alcoholism: Plan: 27-year-old male with past medical history significant for concussion, alcohol induced mood disorder, alcoholism, transaminitis, medical marijuana use, history of suicidal ideation in the past comes because of alcoholism and suicidal ideation. Patient currently resting comfortably. Patient states currently does not have any thoughts to hurt himself as he is in the hospital and knows that he is going to get help. But he states he is depressed. He was in alcohol rehab recently. But again is drinking one fourth of gallon of vodka daily. Vaping tobacco. Has some abdominal discomfort. Was having nausea and vomiting last few days. Had 1 episode of blood in the vomitus. Has mild headache. Vision is blurry. No runny nose or sore throat. Has cough from smoking. No chest pain. Feeling some shortness of breath. Did not move his bowels in last 2 days. Normal micturition. Afebrile. Not eating much. Hemodynamics are okay. Alcoholism Alcohol level 442 Banana bag IV thiamine, IV folic acid Alcohol withdrawal protocol with gabapentin and IV Ativan as needed Stop taking naltrexone close monitor Suicidal ideation Depression supposed to be on Remeron but not taking it currently no thoughts of hurting himself suicidal precautions Psychiatry consult Hematemesis one episode as per patient Hemoglobin stable at 17 Seen by GI for hematemesis in December 2022 at that time no varices on CT scan . Placed on IV Protonix twice daily will observe Will consult GI if needed Elevated lft total bilirubin 1.9 ast 241 alt 156 seems chronic elevation mostly from alcoholism will f/u US and repeat labs DVT prophylaxis SCDs as patient had hematemesis History of Present Illness Chief Complaint: Alcohol intoxication and suicidal ideation and depression Primary Care Provider: Laurie Paiz MD 27-year-old male with past medical history significant for concussion, alcohol induced mood disorder, alcoholism, transaminitis, medical marijuana use, history of suicidal ideation in the past comes because of alcoholism and suicidal ideation. Patient currently resting comfortably. Patient states currently does not have any thoughts to hurt himself as he is in the hospital and knows that he is going to get help. But he states he is depressed. He was in alcohol rehab recently. But again is drinking one fourth of gallon of vodka daily. Vaping tobacco. Has some abdominal discomfort. Was having nausea and vomiting last few days. Had 1 episode of blood in the vomitus. Has mild headache. Vision is blurry. No runny nose or sore throat. Has cough from smoking. No chest pain. Feeling some shortness of breath. Did not move his bowels in last 2 days. Normal micturition. Afebrile. Not eating much. Hemodynamics are okay. Past medical history. As mentioned above past surgical history. Surgical history on file. Social history. . Vaping tobacco. Currently drinking water gallon of vodka daily. Family history. No family history on file Allergies Allergy/AdvReac Type Severity Reaction Status Date / Time cephalexin Allergy Severe Hives Verified 01/05/23 21:08 sulfamethoxazole Allergy Severe Hives Verified 01/05/23 21:08 [From Bactrim] trimethoprim [From Bactrim] Allergy Severe Hives Verified 01/05/23 21:08 Home Medications Medication Instructions Recorded Confirmed Type hydroxyzine HCl 10 mg tablet 10 mg PO Q6H PRN Anxiety 03/30/23 03/30/23 History naltrexone 50 mg tablet 50 mg PO DAILY 03/30/23 03/30/23 History Past Med/Surg History Medical History Alcohol withdrawal Hepatic steatosis Alcohol dependence Alcohol intoxication Pneumonia Transaminitis Surgical History No pertinent past surgical history Family History Denies family history of Deep vein thrombosis Pulmonary embolism Social History Smoking Status: Current every day smoker Tobacco Type: E-cigarettes / Vaping Second Hand Exposure: No; Do You Dip or Chew Tobacco: No; Hx Alcohol Use: Yes Alcohol type: hard liquor Hx Substance Use: Yes Preferred Language: Prydeinig Communication Ability: Effective Customer Success Specialist Required: No Beliefs That Will Affect Care: None Current Living Situation: Spouse Feels Safe at Home: Yes Assistive Devices: None Review of Systems Review of Systems: All systems reviewed & are unremarkable except as noted in HPI & below Physical Exam Physical Exam: General- not in distress Head- atraumatic Eyes- EOMI Neck- supple, no JVD. Lungs- clear to auscultation no wheezing or crackles. Heart- regular rhythm; no murmur, no gallop. Abdomen- normal bowel sounds, soft, mild diffuse discomfort, no distension Extremities- no pretibial edema, no erythema seen Neuro- alert, oriented x 3; EOMI; no facial palsy; no dysarthria; moves extremities. Skin- warm & dry Results & Data Results & Data Vital Signs (Past 12 Hours) Vital Signs Temp Pulse Resp BP Pulse Ox O2 Del Method 03/30/23 03:47 36.7 C 102 H 16 138/93 98 Room Air Diagnostic Findings Laboratory Results WBC 6.82 K/ul (4.8-10.8) 03/30/23 03:55 RBC 5.69 M/uL (4.70-6.10) 03/30/23 03:55 Hgb 17.2 g/dl (14.0-18.0) 03/30/23 03:55 Hct 50.6 % (42.0-52.0) 03/30/23 03:55 MCV 88.9 fL (80.0-100.0) 03/30/23 03:55 MCH 30.2 pg (25.0-34.0) 03/30/23 03:55 MCHC 34.0 g/dL (32.0-36.0) 03/30/23 03:55 RDW Std Deviation 45.5 fL (36.4-46.3) 03/30/23 03:55 RDW Coeff of Nidia 14.2 % (11.5-14.5) 03/30/23 03:55 Plt Count 345 K/uL (130-400) 03/30/23 03:55 MPV 7.6 fL (9.4-12.4) L 03/30/23 03:55 Neutrophils % (Manual) 28 % 03/30/23 03:55 Lymphocytes % (Manual) 19 % 03/30/23 03:55 Reactive Lymphs % (Man) 47 % 03/30/23 03:55 Monocytes % (Manual) 6 % 03/30/23 03:55 Neutrophils # (Manual) 1.91 K/uL (1.40-6.50) 03/30/23 03:55 Total Absolute Neuts 1.91 K/uL (1.4-6.5) 03/30/23 03:55 Lymphocytes # (Manual) 1.30 K/uL (1.2-3.4) 03/30/23 03:55 Reactive Lymphs # 3.21 K/uL 03/30/23 03:55 Total Abs Lymphocytes 4.50 K/uL (1.2-3.4) H 03/30/23 03:55 Monocytes # (Manual) 0.41 K/uL (0.11-0.59) 03/30/23 03:55 Sodium 138 mmol/L (136-145) 03/30/23 03:55 Potassium 3.5 mmol/L (3.5-5.1) 03/30/23 03:55 Chloride 94 mmol/L (98-107) L 03/30/23 03:55 Carbon Dioxide 22 mmol/L (21-32) 03/30/23 03:55 Anion Gap 22 (3-11) H 03/30/23 03:55 BUN 8 mg/dl (6-23) 03/30/23 03:55 Creatinine 0.95 mg/dl (0.6-1.4) 03/30/23 03:55 Est Cr Clr Drug Dosing Not Reportable 03/30/23 03:55 Est GFR ( Amer) 126.6 ml/min 03/30/23 03:55 Est GFR (Non-Af Amer) 109.3 ml/min 03/30/23 03:55 BUN/Creatinine Ratio 8.4 (10-20) L 03/30/23 03:55 Glucose 92 mg/dl (70-99(Fasting)) 03/30/23 03:55 Calcium 9.1 mg/dl (8.6-10.3) 03/30/23 03:55 Magnesium 2.0 mg/dl (1.7-2.4) 03/30/23 03:55 Total Bilirubin 1.9 mg/dl (0.2-1.0) H 03/30/23 03:55 AST 241 U/L (13-39) H 03/30/23 03:55 ALT 156 U/L (7-52) H 03/30/23 03:55 Alkaline Phosphatase 92 U/L (34-104) 03/30/23 03:55 Total Protein 9.0 gm/dl (6.0-8.3) H 03/30/23 03:55 Albumin 5.0 gm/dl (3.4-5.0) 03/30/23 03:55 Globulin 4.0 gm/dl (2.5-4.0) 03/30/23 03:55 Albumin/Globulin Ratio 1.3 (0.9-2) 03/30/23 03:55 TSH 1.130 uIu/ml (0.300-4.500) 03/30/23 03:55 Salicylates < 3.0 mg/dl (3.0-30) L 03/30/23 03:55 Acetaminophen < 3 ug/ml (10-30) L 03/30/23 03:55 Ethyl Alcohol mg/dL 442.2 mg/dl (<10.0) H 03/30/23 03:55 Code Status & VTE Plan VTE Prophylaxis Plan VTE Prophylaxis will be ordered: Yes
[2023-03-30] MEDS: diazePAM 5 MG TABLET PO SCH (08:01)
[2023-03-30] MEDS: PANTOprazole 40 MG TAB PO STA (08:01)
[2023-03-30] MEDS: IBUPROFEN 200 MG/10 ML UDC PO STA (08:01)
[2023-03-30] MEDS ORDERED: LORazepam 3 MG in SYRINGE 1.5 ML IV PRN (08:27)
[2023-03-30] MEDS ORDERED: Ativan IV Alcohol Withdrawal--Active Protocol IV PRN (08:27)
[2023-03-30] MEDS ORDERED: LORazepam 1 MG in SYRINGE 0.5 ML IV PRN (08:27)
[2023-03-30] MEDS ORDERED: NITROGLYCERIN SL 0.4 MG/TAB TAB SL PRN (08:27)
[2023-03-30] MEDS ORDERED: LORazepam 2 MG in SYRINGE 1 ML IV PRN (08:27)
[2023-03-30] MEDS ORDERED: GABAPENTIN 1200MG ALCOHOL WITHDRAWAL LOAD PO STA (08:27)
[2023-03-30] MEDS ORDERED: NICOTINE 21 MG/24 HR TDSY TD SCH (09:00)
[2023-03-30 09:07] LABS: Appearance Urine Clear (Clear); Blood Urine 1+ (Negative); Color Urine Dark Yellow; Glucose Urine UA Negative (Negative); Ketones Urine 3+ (Negative); Leukocyte Esterase Urine Negative (Negative); Nitrite Urine Negative (Negative); Protein Urine 2+ (Negative); Specific Gravity Urine 1.022 (1.000-1.030); Urobilinogen Urine Negative (Negative)
[2023-03-30 09:08] LABS: Bilirubin Urine 1+ (Negative)
[2023-03-30] MEDS: POTASSIUM CHLORIDE CRTAB 20 MEQ TABCR PO STA (09:11)
[2023-03-30] MEDS: GABAPENTIN 600 MG TAB PO ONE (09:11)
[2023-03-30] MEDS: SODIUM CHLORIDE 0.9% 1,000 ML IV SCH (09:12)
[2023-03-30] MEDS: PANTOprazole 40 MG in SYRINGE 0 ML IV SCH (09:13)
[2023-03-30] MEDS: FOLIC ACID 1 MG in SYRINGE 9.8 ML IV SCH (09:13)
[2023-03-30 09:14] LABS: Epithelial Cell Urine 0-5 /lpf (0-5); Mucus Urine Present (None Prsent)
[2023-03-30] MEDS: THIAMINE HCL 100 MG in SYRINGE 9 ML IV SCH (09:14)
[2023-03-30 09:15] LABS: Bacteria Urine 1+ (Negative); RBC Urine 0-4 /hpf (0-4); WBC Urine 0-5 /hpf (0-5)
[2023-03-30 09:23] LABS: Amphetamines+Metham, Urine Neg (Neg); Barbiturates, Urine Neg (Neg); Benzodiazepine, Urine Neg (Neg); Cocaine, Urine Neg (Neg); MDMA (Ecstacy), Urine Neg (Neg); Marijuana, Urine Neg (Neg); Methadone, Urine Neg (Neg); Opiate, Urine Neg (Neg); Phencyclidine, Urine Neg (Neg)
[2023-03-30] MEDS: GABAPENTIN 600 MG TAB PO SCH (11:17)
--- NOTE | 2023-03-30 11:51 | Communication Note ---
Date of Service: March 30, 2023 consult received, liaison to assess patient when more alert as only giving short answers per nursing so full mental health assessment complicated, also STEPHEN > 400 at 4 am, received Valium 8 am and neurontin loading. patient was previously seen on psych consult in August 2022 and denied SI when no longer intoxicated. Unclear if any services at this time. New stessor of leaving. Full consult to be completed prior to med clearance.
--- NOTE | 2023-03-30 13:20 | Hospitalist Progress Note ---
Date of Service March 30, 2023 Assessment & Plan (1) Alcoholism: Plan: 27-year-old male with past medical history significant for concussion, alcohol induced mood disorder, alcoholism, transaminitis, medical marijuana use, history of suicidal ideation in the past comes because of alcoholism and suicidal ideation. Alcohol use disorder Alcohol withdrawal History of alcohol use disorder with multiple hospitalization for withdrawals Alcohol level on admission was 442 On alcohol withdrawal protocol with gabapentin and Ativan. [id number] Valium added as well Continue monitor signs for alcohol withdrawal Suicidal ideation Depression Patient endorsed suicidal ideation when he was intoxicated Recent life stressors present Awaiting psych clearance Hematemesis one episode as per patient Hemoglobin stable at 17 Seen by GI for hematemesis in December 2022 at that time no varices on CT scan . Placed on IV Protonix twice daily will observe Will consult GI if needed Elevated lft Likely related with alcohol use total bilirubin 1.9 ast 241 alt 156 seems chronic elevation Awaiting liver ultrasound DVT prophylaxis SCDs as patient had hematemesis Please note the above document was generated using voice recognition software. It may contain grammatical, syntax or spelling errors. Any formal questions or concerns about the content, text or information contained within the body of this dictation should be directly addressed to the provider for clarification Admission and Anticipated Discharge Date Admission Date: March 30, 2023 Subjective Patient seen and examined at bedside. He is comfortably lying in the bed. He is AOx3. He denies any tremors or visual hallucinations. Review of Systems Review of Systems: All systems reviewed & are unremarkable except as noted in Subjective Physical Exam Physical Exam: Constitutional: WD/WN, vitals as above, NAD, sitting up in bed, pleasant, conversing easily Respiratory: normal respiratory effort, lungs clear to auscultation, no wheeze, rales, rhonchi. Normal insp/exp effort, no accessory muscle use Cardiovascular: RRR, no murmur, no edema Vessels: no JVD or carotid bruit Chest: normal inspection of chest Abdomen: normal bowel sounds, soft, nontender, no hepatosplenomegaly Musculoskeletal: no cyanosis or clubbing, extremities motor strength 5/5 Skin: no rashes, warm and dry normal turgor Neurologic: PERRL, EOMI, accommodation nl, no face palsy, no dysarthria CN's II- XI intact bilaterally and moves all extremities Psychiatric: A+Ox3, euthymic affect Results & Data Results & Data Vital Signs (Past 12 Hours) Vital Signs Temp Pulse Pulse Resp BP BP Pulse Ox 03/30/23 13:00 104 H 15 109/55 L 95 03/30/23 11:15 03/30/23 11:15 104 H 18 112/78 97 03/30/23 10:00 100 H 19 130/83 97 03/30/23 09:33 115 H 24 134/98 98 03/30/23 08:27 03/30/23 08:00 103 H 21 138/87 98 03/30/23 06:41 78 18 152/90 H 98 03/30/23 03:47 36.7 C 102 H 16 138/93 98 Pulse Ox O2 Del Method O2 Del Method 03/30/23 13:00 Room Air 03/30/23 11:15 Room Air 03/30/23 11:15 Room Air 03/30/23 10:00 Room Air 03/30/23 09:33 Room Air 03/30/23 08:27 97 Room Air 03/30/23 08:00 Room Air 03/30/23 06:41 Room Air 03/30/23 03:47 Room Air
--- NOTE | 2023-03-30 19:52 | Ultrasound Report ---
ABDOMINAL ULTRASOUND, RIGHT UPPER QUADRANT HISTORY: Elevated LFTs elevated lft. COMPARISON: CT 01/06/2023 FINDINGS: Pancreas: The pancreas demonstrates a normal echotexture. Liver: 17.5 cm in length. No hepatic mass identified. Mildly increased echogenicity. No marginal nodu larity. Gallbladder: No gallbladder wall thickening. No gallstones. CBD: 0.3 cm. Right kidney: No hydronephrosis. IMPRESSION: 1. Hepatic steatosis redemonstrated. 2. Otherwise unremarkable exam. ACT 112: Negative or not required by law. Electronically signed by: Yobani Fonseca M.D. 03/30/2023 7:51 PM
[2023-03-31] MEDS: GABAPENTIN 600 MG TAB PO SCH (01:12)
[2023-03-31 06:32] LABS: Albumin Level 3.8 gm/dl (3.4-5.0); Bilirubin Direct 0.5 mg/dl (0-0.2); Bilirubin,Total 2.7 mg/dl (0.2-1.0); Calcium 8.8 mg/dl (8.6-10.3); Est GFR (African American) 145.7 ml/min; Est GFR (Non-African American) 125.7 ml/min; Magnesium 1.7 mg/dl (1.7-2.4); Potassium 3.7 mmol/L (3.5-5.1); Total Protein 6.7 gm/dl (6.0-8.3)
[2023-03-31 06:37] LABS: Basophils # (auto) 0.03 K/uL (0.00-0.20); Basophils % (auto) 0.8 %; Eosinophils # (auto) 0.08 K/uL (0.00-0.50); Eosinophils % (auto) 2.1 %; Hematocrit (blood only) 41.1 % (42.0-52.0); Hemoglobin 13.8 g/dl (14.0-18.0); Immature Granulocytes # (auto) 0.01 K/uL (0.01-0.20); Immature Granulocytes % (auto) 0.3 %; Lymphocytes # (auto) 1.55 K/uL (1.20-3.40); Lymphocytes % (auto) 40.1 %; Mean Corpuscular Hemoglobin 30.2 pg (25.0-34.0); Mean Corpuscular Hgb Conc 33.6 g/dL (32.0-36.0); Mean Corpuscular Volume 89.9 fL (80.0-100.0); Mean Platelet Volume 8.1 fL (9.4-12.4); Monocytes # (auto) 0.36 K/uL (0.11-0.59); Monocytes % (auto) 9.3 %; Neutrophils # (auto) 1.84 K/uL (1.40-6.50); Neutrophils % (auto) 47.4 %; Platelet Count 205 K/uL (130-400); RDW Coefficient of Variation 13.6 % (11.5-14.5); RDW Standard Deviation 44.4 fL (36.4-46.3); Red Blood Count 4.57 M/uL (4.70-6.10); White Blood Count 3.87 K/ul (4.8-10.8)
[2023-03-31] MEDS: diazePAM 5 MG TABLET PO ONE (11:51)
--- NOTE | 2023-03-31 12:25 | Electrocardiogram Report ---
Test Reason : Blood Pressure : / mmHG Vent. Rate : 077 BPM Atrial Rate : 077 BPM P-R Int : 146 ms QRS Dur : 114 ms QT Int : 434 ms P-R-T Axes : 079 098 066 degrees QTc Int : 491 ms Sinus rhythm with sinus arrhythmia vs. possible ectopic atrial rhythm (1.5 pause followed by change i n p wave morphology and reduced heart rate) Rightward axis Minor Non-specific intra-ventricular conduction delay Prolonged QT Abnormal ECG When compared with ECG of 07-JAN-2023 18:42, pause and rate change now present Confirmed by Tito Franco ([id number]) on 03/31/2023 12:25:08 PM Referred By: REFERRED SELF Confirmed By:Tito Franco
[2023-03-31] MEDS: diazePAM 5 MG TABLET PO SCH (13:16)
--- NOTE | 2023-03-31 16:21 | Hospitalist Progress Note ---
Date of Service March 31, 2023 Assessment & Plan (1) Alcoholism: Plan: 27-year-old male with past medical history significant for concussion, alcohol induced mood disorder, alcoholism, transaminitis, medical marijuana use, history of suicidal ideation in the past comes because of alcoholism and suicidal ideation. Alcohol use disorder Alcohol withdrawal History of alcohol use disorder with multiple hospitalization for withdrawals Alcohol level on admission was 442 On alcohol withdrawal protocol with gabapentin and Ativan. Scheduled valium 10 mg q8 hours. Continue monitor signs for alcohol withdrawal Suicidal ideation Depression Patient endorsed suicidal ideation when he was intoxicated Recent life stressors present Denies suicidal ideation at the moment. Hematemesis one episode as per patient Seen by GI for hematemesis in December 2022 at that time no varices on CT scan . Hemoglobin is stable Placed on IV Protonix twice daily will observe CBC daily Elevated lft Likely related with alcohol use Ultrasound revealed steatosis DVT prophylaxis SCDs as patient had possible hematemesis Dispositionpatient admitted to the hospital due to severe alcohol withdrawal. He wants to go to rehab. Appreciate case management input. Please note the above document was generated using voice recognition software. It may contain grammatical, syntax or spelling errors. Any formal questions or concerns about the content, text or information contained within the body of this dictation should be directly addressed to the provider for clarification Admission and Anticipated Discharge Date Admission Date: March 30, 2023 Subjective Patient seen and examined at bedside. He exhibits tremor today. No hallucinations; reports anxiety. Review of Systems Review of Systems: All systems reviewed & are unremarkable except as noted in Subjective Physical Exam Physical Exam: Constitutional: WD/WN, vitals as above, NAD, sitting up in bed, pleasant, conversing easily. Tremors present, anxious Respiratory: normal respiratory effort, lungs clear to auscultation, no wheeze, rales, rhonchi. Normal insp/exp effort, no accessory muscle use Cardiovascular: RRR, no murmur, no edema Vessels: no JVD or carotid bruit Chest: normal inspection of chest Abdomen: normal bowel sounds, soft, nontender, no hepatosplenomegaly Musculoskeletal: no cyanosis or clubbing, extremities motor strength 5/5 Skin: no rashes, warm and dry normal turgor Neurologic: PERRL, EOMI, accommodation nl, no face palsy, no dysarthria CN's II- XI intact bilaterally and moves all extremities Psychiatric: A+Ox3, anxious Results & Data Results & Data Vital Signs (Past 12 Hours) Vital Signs Temp Pulse Pulse Resp BP Pulse Ox O2 Del Method 03/31/23 15:30 36.6 C 87 18 130/86 97 Room Air 03/31/23 13:43 83 03/31/23 12:03 36.6 C 74 16 120/83 97 Room Air 03/31/23 07:24 36.9 C 77 15 130/78 100 Room Air
--- NOTE | 2023-03-31 16:22 | Psychiatric Consultation ---
Date of Consultation March 31, 2023 Impression / Recommendations Impression 27 yo male with significant alcohol use disorder, some level of self medicating generalized or non specific anxiety but difficult to differentiate from withdrawal. He reports past trials of 2 benzos (xanax, etc), buspar, and vistaril. Was able to achieve ?6 weeks sobriety on oral naltrexone. (1) Alcohol dependence: (2) Anxiety disorder: Plan reviewed that currently on gabapentin and valium for detox and should help for anxiety while hospitalized, he should not take benzos on outpatient basis given EToh hx would hold on any trial of an SSRI as reports gastritis symptoms and needs established in dual IOP program--he is amenable to an intake with [facility] as now has insurance reviewed that LFTs are trending down but typically would defer nalrexone start to outpatient basis, oral naltrexone with monitoring of LFTs generally recommended prior to conversion to vivitrol. CPT Code Overall, I spent a total of 58 minutes with this case, including review of chart, direct evaluation of the patient, counseling the patient, and documentation. Psych History Identifying Data 27 yo male from [place], admit early am 03/30 for alcohol intoxication/withdrawal management. consult is by hospitalist service for anxiety/recs. Chief Complaint "too much has happened". History of Present Illness previously seen on consult service by Dr. Hill in August 2022 for similar presentation, had made suicidal statements in the context of intoxication, denies when sober. States guns were removed from home at that time. Did attend a rehab program but left AMA after a few days. Best response was to naltrexone and dual dx IOP but [facility] not [facility] to [facility]. 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 His intention is to "get my life back" referring to his and child. Confirmed hx as obtained by ines: Met with Pt in his room with sitter present. Pt is alert and sitting up and eating a sandwich during meeting. Pt is currently denying suicidal ideation and reports that he drank because his left him and took their child and he lost his job because of his drinking. Pt reports that he has been drinking everyday since New Year's Keely after he stopped taking his Naltrexone to attend a libertarian. Pt states that he is interested in drug and alcohol counseling, but doesn't want to go to inpatient rehab. Pt reports that he went inpatient rehab ([facility]) in [place] about a year ago, but left after 4 days AMA. Pt reports that he was going to [facility] and found it helpful, but quit in October because of the cost and paying out of pocket. Pt reports that he was able to stay sober for 6 months with the Naltrexone, but is interested in Vivitrol because he is not able to stop it to drink like he did with the Naltrexone. Pt denies any other substance use. Pt reports past use of Seroquel, Xanax, Ativan and Buspar. Pt reports that he is currently prescribed Vistaril but doesn't find it helpful for his anxiety; Pt denies any past trial of antidepressants. Pt also reports past suicide attempt "long time ago" and reports that he gave away his guns about a year ago because he "didn't want them around". Pt stated, "I just want extensive outpatient drug and alcohol therapy, get the Naltrexone shot and get a job so my doesn't have to pay for everything". Allergies Allergy/AdvReac Type Severity Reaction Status Date / Time cephalexin Allergy Severe Hives Verified 01/05/23 21:08 sulfamethoxazole Allergy Severe Hives Verified 01/05/23 21:08 [From Bactrim] trimethoprim [From Bactrim] Allergy Severe Hives Verified 01/05/23 21:08 Home Medications Medication Instructions Recorded Confirmed Type hydroxyzine HCl 10 mg tablet 10 mg PO Q6H PRN Anxiety 03/30/23 03/30/23 History naltrexone 50 mg tablet 50 mg PO DAILY 03/30/23 03/30/23 History Patient History Medical History Hematemesis Alcohol use disorder, severe, dependence Suicidal ideation Alcohol withdrawal Hepatic steatosis Alcohol dependence Alcohol intoxication Pneumonia Transaminitis Surgical History No pertinent past surgical history Family History Denies family history of Deep vein thrombosis Pulmonary embolism Social History Smoking Status: Current every day smoker Tobacco Type: E-cigarettes / Vaping Second Hand Exposure: No; Do You Dip or Chew Tobacco: No; Hx Alcohol Use: Yes Alcohol type: beer and hard liquor Hx Substance Use: Yes Preferred Language: [place] Communication Ability: Effective Senior Publications Specialist Required: No Beliefs That Will Affect Care: None Current Living Situation: Alone Current Living Situation Comment: Pt currently lives in house alone. Pt moved out with child. Feels Safe at Home: Yes Safety Concerns: Feels Safe At This Time Assistive Devices: None Physical Exam Psychiatric: Orientation: alert and oriented x 3 Apperance: appropriately dressed and appropriately groomed Eye Contact: good eye contact Motor Behavior: no abnormal motor movements Speech: normal rate/rhythm/volume of speech Affect: + anxious affect Mood: + anxious mood Thought Process: goal directed thought process Thought Content: reality based without delusions Suicidal Thoughts: denies suicidal thoughts Homicidal Thoughts: denies homicidal thoughts Hallucinations: no auditory hallucinations and no visual hallucinations Cognition: attention grossly intact and language grossly intact Estimated Intelligence: consistent with education level Insight: + limited insight Judgment: + limited judgement Vital Signs (Past 24 Hours): Last Vital Signs Temp 36.6 C 03/31/23 15:30 Pulse 87 03/31/23 15:30 Resp 18 03/31/23 15:30 BP 130/86 03/31/23 15:30 Pulse Ox 97 03/31/23 15:30 O2 Del Method Room Air 03/31/23 15:30 Review of Systems All systems reviewed & are unremarkable except as noted in HPI & below Results & Data (PSY) Laboratory Results 03/31/23 Range/Units 05:54 WBC 3.87 L (4.8-10.8) K/ul RBC 4.57 L (4.70-6.10) M/uL Hgb 13.8 L D (14.0-18.0) g/dl Hct 41.1 L (42.0-52.0) % MCV 89.9 (80.0-100.0) fL MCH 30.2 (25.0-34.0) pg MCHC 33.6 (32.0-36.0) g/dL RDW Std Deviation 44.4 (36.4-46.3) fL RDW Coeff of Nidia 13.6 (11.5-14.5) % Plt Count 205 (130-400) K/uL MPV 8.1 L (9.4-12.4) fL Immature Gran % (Auto) 0.3 % Neut % (Auto) 47.4 % Lymph % (Auto) 40.1 % [place] % (Auto) 9.3 % Eos % (Auto) 2.1 % Baso % (Auto) 0.8 % Neut # (Auto) 1.84 (1.40-6.50) K/uL Lymph # (Auto) 1.55 (1.20-3.40) K/uL [place] # (Auto) 0.36 (0.11-0.59) K/uL Eos # (Auto) 0.08 (0.00-0.50) K/uL Baso # (Auto) 0.03 (0.00-0.20) K/uL Immature Gran # (Auto) 0.01 (0.01-0.20) K/uL Sodium 136 (136-145) mmol/L Potassium 3.7 (3.5-5.1) mmol/L Chloride 102 (98-107) mmol/L Carbon Dioxide 26 (21-32) mmol/L Anion Gap 8 (3-11) BUN 9 (6-23) mg/dl Creatinine 0.75 (0.6-1.4) mg/dl Est Cr Clr Drug Dosing 111.0 ml/min Est GFR ( Amer) 145.7 ml/min Est GFR (Non-Af Amer) 125.7 ml/min BUN/Creatinine Ratio 12.0 (10-20) Glucose 72 (70-99(Fasting)) mg/dl Calcium 8.8 (8.6-10.3) mg/dl Magnesium 1.7 (1.7-2.4) mg/dl Total Bilirubin 2.7 H (0.2-1.0) mg/dl Direct Bilirubin 0.5 H (0-0.2) mg/dl AST 102 H (13-39) U/L ALT 83 H (7-52) U/L Alkaline Phosphatase 65 (34-104) U/L Total Protein 6.7 D (6.0-8.3) gm/dl Albumin 3.8 (3.4-5.0) gm/dl Medications Administered Diazepam (Diazepam 5 Mg Tablet) 10 mg PO TID MARCY Stop: 04/30/23 13:59 Last Admin: 03/31/23 13:16 Dose: 10 mg Documented By: HUGO Gabapentin (Gabapentin 600 Mg Tab) 600 mg PO Q8H MARCY Stop: 03/31/23 18:16 Last Admin: 03/31/23 10:08 Dose: 600 mg Documented By: Admin: 03/31/23 01:12 Dose: 600 mg Documented By: DANISH Thiamine HCl 100 mg/ Syringe 10 mls @ 2 mls/min IV QAM MARCY Stop: 04/29/23 08:59 Last Admin: 03/31/23 10:08 Dose: 2 mls/min Documented By: Admin: 03/30/23 09:14 Dose: 2 mls/min Documented By: MIKE Folic Acid 1 mg/ Syringe 10 mls @ 5 mls/min IV QAM [facility] Stop: 04/29/23 08:59 Last Admin: 03/31/23 10:08 Dose: 5 mls/min Documented By: Admin: 03/30/23 09:13 Dose: 5 mls/min Documented By: MIKE Pantoprazole Sodium 40 mg/ (Syringe) 10 mls @ 5 mls/min IV BID MARCY Stop: 04/29/23 08:59 Last Admin: 03/31/23 10:08 Dose: 5 mls/min Documented By: Admin: 03/30/23 20:15 Dose: 5 mls/min Documented By: Admin: 03/30/23 09:13 Dose: 5 mls/min Documented By: MIKE Miscellaneous (Remove Nicoderm Patch) 1 each N/A DAILY@0859 [facility] Stop: 04/29/23 08:58 Last Admin: 03/31/23 10:08 Dose: 1 each Documented By: Admin: 03/30/23 09:17 Dose: Not Given Documented By: MIKE Nicotine (Nicotine 21 Mg/24 Hr Tdsy) 21 mg TD QAM [facility] Stop: 04/29/23 05:34 Last Admin: 03/31/23 10:08 Dose: 21 mg Documented By: Admin: 03/30/23 05:52 Dose: 21 mg Documented By: DANISH(2) Coding Level of Care Code 490[address] [facility] Intl Hosp Care Lvl 2 Diagnoses Alcohol dependence F10.20 Anxiety disorder F41.9
[2023-04-01 04:33] LABS: Basophils # (auto) 0.02 K/uL (0.00-0.20); Basophils % (auto) 0.5 %; Eosinophils # (auto) 0.16 K/uL (0.00-0.50); Hematocrit (blood only) 45.3 % (42.0-52.0); Hemoglobin 15.5 g/dl (14.0-18.0); Immature Granulocytes # (auto) 0.01 K/uL (0.01-0.20); Immature Granulocytes % (auto) 0.2 %; Lymphocytes # (auto) 1.96 K/uL (1.20-3.40); Lymphocytes % (auto) 48.8 %; Mean Corpuscular Hemoglobin 30.2 pg (25.0-34.0); Mean Corpuscular Hgb Conc 34.2 g/dL (32.0-36.0); Mean Corpuscular Volume 88.3 fL (80.0-100.0); Mean Platelet Volume 8.1 fL (9.4-12.4); Monocytes # (auto) 0.27 K/uL (0.11-0.59); Monocytes % (auto) 6.7 %; Neutrophils % (auto) 39.8 %; Platelet Count 186 K/uL (130-400); RDW Coefficient of Variation 13.3 % (11.5-14.5); RDW Standard Deviation 43.8 fL (36.4-46.3); Red Blood Count 5.13 M/uL (4.70-6.10); White Blood Count 4.02 K/ul (4.8-10.8)
[2023-04-01 04:49] LABS: Albumin Globulin Ratio 1.2 (0.9-2); Albumin Level 4.2 gm/dl (3.4-5.0); BUN Creatinine Ratio 13.3 (10-20); Calcium 9.4 mg/dl (8.6-10.3); Est GFR (African American) 145.7 ml/min; Est GFR (Non-African American) 125.7 ml/min; Globulin 3.4 gm/dl (2.5-4.0); Potassium 3.9 mmol/L (3.5-5.1); Total Protein 7.6 gm/dl (6.0-8.3)
[2023-04-01] MEDS: GABAPENTIN 600 MG TAB PO SCH (05:23)
--- NOTE | 2023-04-01 16:52 | Discharge Summary ---
Date of Service April 01, 2023 Admission HPI Per Admitting Provider 27-year-old male with past medical history significant for concussion, alcohol induced mood disorder, alcoholism, transaminitis, medical marijuana use, history of suicidal ideation in the past comes because of alcoholism and suicidal ideation. Patient currently resting comfortably. Patient states currently does not have any thoughts to hurt himself as he is in the hospital and knows that he is going to get help. But he states he is depressed. He was in alcohol rehab recently. But again is drinking one fourth of gallon of vodka daily. Vaping tobacco. Has some abdominal discomfort. Was having nausea and vomiting last few days. Had 1 episode of blood in the vomitus. Has mild headache. Vision is blurry. No runny nose or sore throat. Has cough from smoking. No chest pain. Feeling some shortness of breath. Did not move his bowels in last 2 days. Normal micturition. Afebrile. Not eating much. Hemodynamics are okay. Past medical history. As mentioned above past surgical history. Surgical history on file. Social history. . Vaping tobacco. Currently drinking water gallon of vodka daily. Family history. No family history on file Admission Exam Per Admitting Provider General- not in distress Head- atraumatic Eyes- EOMI Neck- supple, no JVD. Lungs- clear to auscultation no wheezing or crackles. Heart- regular rhythm; no murmur, no gallop. Abdomen- normal bowel sounds, soft, mild diffuse discomfort, no distension Extremities- no pretibial edema, no erythema seen Neuro- alert, oriented x 3; EOMI; no facial palsy; no dysarthria; moves extremities. Skin- warm & dry Principal Diagnosis Alcohol withdrawal Suicidal ideation Discharge Exam Constitutional: WD/WN, vitals as above, NAD, sitting up in bed, pleasant, conversing easily. No tremors present. Respiratory: normal respiratory effort, lungs clear to auscultation, no wheeze, rales, rhonchi. Normal insp/exp effort, no accessory muscle use Cardiovascular: RRR, no murmur, no edema Vessels: no JVD or carotid bruit Chest: normal inspection of chest Abdomen: normal bowel sounds, soft, nontender, no hepatosplenomegaly Musculoskeletal: no cyanosis or clubbing, extremities motor strength 5/5 Skin: no rashes, warm and dry normal turgor Neurologic: PERRL, EOMI, accommodation nl, no face palsy, no dysarthria CN's II- XI intact bilaterally and moves all extremities Psychiatric: A+Ox3, Discharge Data Allergies Allergy/AdvReac Type Severity Reaction Status Date / Time cephalexin Allergy Severe Hives Verified 01/05/23 21:08 sulfamethoxazole Allergy Severe Hives Verified 01/05/23 21:08 [From Bactrim] trimethoprim [From Bactrim] Allergy Severe Hives Verified 01/05/23 21:08 Consultations 03/30/23 05:41 ED Decision to Admit Stat 03/30/23 08:27 Consult Psychiatry Routine Ordered Studies 03/30/23 08:27 liver Routine Hospital Course (1) Alcoholism: 27-year-old male with past medical history significant for concussion, alcohol induced mood disorder, alcoholism, transaminitis, medical marijuana use, history of suicidal ideation in the past comes because of alcoholism and suicidal ideation. Alcohol level on admission was 442 Mg/DL Patient was admitted to medical floor; was started on alcohol withdrawal protocol with Ativan, gabapentin and Valium. Psychiatry and psychiatric liaison was consulted for comanagement for suicidal ideation. Patient denied any suicidal ideation a day after admission. He was alert oriented x 3; no signs or symptoms of withdrawal at discharge. Patient wanted to get discharged home; follow-up with PCP to start on naltrexone. He is looking forward to going to rehab as well. Please note the above document was generated using voice recognition software. It may contain grammatical, syntax or spelling errors. Any formal questions or concerns about the content, text or information contained within the body of this dictation should be directly addressed to the provider for clarification Total Time Total Time Spent Total Time Spent (In Minutes): 45 Total Time Includes: Examination of the Patient, Discharge Planning, Medication Reconciliation, Communication With Other Providers and Other Discharge Plan Discharge Items Patient Disposition: Home - Self-Care Reason For Visit: ALCOHOL ITOXICATION, SUICIDEAL IDEATION Discharge Diagnosis: Alcohol intoxication Activity: Resume your previous activity Non-emergency contact: Primary Care Provider Call non-emergency contact if: you have any medication questions and your symptoms worsen Follow-up/Referrals: Laurie Paiz MD [Primary Care Provider] - (Date & Time 04/07/2023 2:00 PM Provider Laurie Paiz MD Department [facility] ) Diet: Regular Addtl Attending Provider Instructions: You were admitted to the hospital with alcohol withdrawal. You underwent detoxification with Valium, Ativan and gabapentin. An appointment has been set up with your primary care doctor. Please follow-up with them to discuss further regarding alcohol use disorder. Please discuss regarding restarting naltrexone. Pending Studies at Discharge: No Stand-Alone Forms: My [facility], Smoking Cessation Medications and DC Order Prescriptions: Continued hydroxyzine HCl 10 mg tablet 10 mg PO Q6H PRN (Reason: Anxiety) Discharge Orders: Discharge Order (Routine); Ordered 04/01/23 Ordered By: Jean Bailey Admission Data Admit Date/Time: 03/30/23 06:11 Attending Provider: Jean Bailey Admit Provider: Etienne Penn Primary Care Provider: Laurie Paiz Other Providers: Edith Smith; Lu Weiss; Jak Singh; Lucian Hill; Steve Salcido Jr; Etienne Penn Other Interventions: Discharge Summary Assessment (RN) Last Done: 04/01/23 16:37
[2023-04-02] MEDS ORDERED: GABAPENTIN 600 MG TAB PO SCH (18:15)
== END 2023-04-01 18:22 | disposition home or self-care (01) | DRG 897 ==
LOC: ED 03:32 → EDINP 06:11 → 4W 20:08